=== PATIENT | male | born 1940 | race Caucasian/White ===

== ENCOUNTER 2017-05-26 12:20 | Inpatient (IN) ==
--- NOTE | 2017-05-26 12:54 | Emergency Department Report ---
Male Urogenital HPI - General Chief complaint: Urogenital-Male Stated complaint: not urinating Time Seen by Provider: 05/26/17 12:53 Source: patient, family Mode of arrival: ambulatory Limitations: no limitations - History of Present Illness HPI Narrative: Patient is a 77-year-old male presents the ER for evaluation of no urine output. Patient was seen 3 days ago in the emergency department and approximately 10 days before that. Patient's original complaint was flank pain , however says that this is a waxing and waning hallucination. Patient was evaluated for flank pain including the CT scan. CT scan was negative patient was discharged home. Patient presented to the ER 3 days ago, at that time family concern for hallucinations and altered mental status. Patient see full evaluation including laboratories and fluid bolus. Patient was improved, patient did not meet criteria for generations so patient was discharged home. Patient repeat presents the ER, says he's only had a 30 mL urine output in the last 2 days, does state that he eats somewhat, however has not been drinking much fluids over the last 72 hours. Patient's had no fevers no chills no nausea no vomiting. Patient brought to the ER for evaluation. On arrival patient is orthostatic drops blood pressure systolic 140 down to systolic of 80 on standing - Related Data Home Medications Medication Instructions Recorded Confirmed Ferrous Gluconate 324 mg PO Q2D PRN #0 09/03/15 05/26/17 Insulin Detemir [Levemir Flextouch] 6.5 unit SQ HS #0 11/23/15 05/26/17 Omeprazole 40 mg PO BID #0 11/23/15 05/26/17 Amiodarone [Pacerone] 200 mg PO DAILY 05/11/17 05/26/17 Aspirin [Ecotrin] 81 mg PO Q2D 05/11/17 05/26/17 Carvedilol [Carvedilol] 12.5 mg PO DAILY 05/11/17 05/26/17 Duloxetine HCl [Cymbalta] 120 mg PO DAILY 05/24/17 05/26/17 Hydrocodone/APAP 7.5/325 [[place] 1 tab PO Q4H PRN 05/24/17 05/26/17 7.5/325] Ondansetron Tab [Zofran Po] 4 mg PO Q6HR PRN 05/24/17 05/26/17 OLANZapine [Zyprexa] 5 mg PO HS 05/26/17 05/26/17 Allergies Allergy/AdvReac Type Severity Reaction Status Date / Time metformin Allergy Unknown Verified 05/26/17 12:35 Review of Systems Constitutional: Reports: weakness. Denies: fever, chills ENT: Denies: throat pain, dental pain Cardiovascular: Denies: chest pain, palpitations, dyspnea on exertion Respiratory: Denies: cough, dyspnea, wheezes Gastrointestinal: Denies: abdominal pain, nausea, vomiting Genitourinary: Reports: other (anuria). Denies: urgency, dysuria, genital lesions Musculoskeletal: Denies: back pain, joint swelling Neurological: Denies: headache, weakness, numbness Psychiatric: Denies: anxiety, depression Hematological/Lymphatic: Denies: easy bleeding, easy bruising PFSH Patient Stated Medical History Other HEENT Yes: glasses Myocardial Infarction Yes Diabetes Mellitus Type 2 Yes Hx Kidney Stones Yes Medical History Updates: Dementia - Social History Smoking status: Former smoker Substance use type: does not use Alcohol intake frequency: does not drink Physical Exam - Limitations Limitations: no limitations - General General appearance: alert, in no apparent distress - Head Head exam: normocephalic, normal inspection - Eye Eye exam: Present: PERRL - ENT ENT exam: Present: normal oropharynx, mucous membranes moist, TM's normal bilaterally - Chest Chest inspection: Present: symmetric chest wall rise. Absent: tenderness - Respiratory Respiratory exam: Present: normal lung sounds bilaterally. Absent: respiratory distress, wheezes, stridor - Cardiovascular Cardiovascular exam: Present: regular rate, normal rhythm, normal heart sounds - Abdominal Exam Abdominal exam: Present: soft, normal bowel sounds. Absent: distention, tenderness - exam: Present: normal inspection, normal testicular lie. Absent: testicular tenderness, urethral discharge, scrotal swelling, circumcised - Extremities Exam Extremities exam: Present: normal inspection. Absent: full ROM - Back Exam Back exam: Present: full ROM. Absent: tenderness, CVA tenderness (R), CVA tenderness (L) - Skin Skin exam: Present: warm, dry - Neurological Exam Neurological exam: Present: alert, oriented X3 Course Vital Signs Temperature 95.0 F L 05/26/17 12:35 Respiratory Rate 19 05/26/17 12:35 Blood Pressure 100/65 05/26/17 12:35 Temperature 98.0 F 05/26/17 15:02 Pulse Rate 58 L 05/26/17 16:00 Respiratory Rate 14 05/26/17 15:02 Blood Pressure 148/80 H 05/26/17 15:02 Pulse Oximetry 90 05/26/17 15:02 Urogenital-Male - [facility] Narrative Medical decision making narrative: Patient significantly orthostatic creatinine is increased to 2.4 from baseline of 1.6, discussed case with Dr. Patel, patient will need observation status she will follow up. Patient did have 386 on bladder scan, unable to urinate. Ch placed no signs of infection - Differential Diagnosis Likely: urinary tract infection, priapism, urethritis, epididymitis, genital herpes simplex, prostatitis, acute retention of urine, inguinal hernia - Medical Records Attestation: I reviewed the patient's medical records. - Lab Data Attestation: I reviewed the patient's lab results. Result diagrams: 05/26/17 13:34 05/26/17 13:34 Lab Results 05/26/17 05/26/17 05/26/17 Range/Units 13:34 13:34 13:34 WBC 7.9 (4.5-11.0) T/MM3 RBC 3.35 L (4.50-5.90) M/MM3 Hgb 11.4 L (13.5-17.5) GM/DL Hct 36.4 L (41-53) % MCV 108.7 H (80-100) UM3 MCH 34.0 (26-34) UUG MCHC 31.3 (31-37) GM/DL RDW Std Deviation 66.9 H (36.9-50.2) FL Plt Count 184 (130-400) T/MM3 MPV 12.6 H (9.4-12.4) UM3 Immature Gran % (Auto) 0.3 (0.0-0.5) % Neut % (Auto) 74.9 H (33-66) % Lymph % (Auto) 18.4 L (23-45) % [place] % (Auto) 4.0 (0-9.0) % Eos % (Auto) 1.8 (0-4) % Baso % (Auto) 0.6 (0-2) % Neut # (Auto) 5.9 (1.8-7.7) T/MM3 Lymph # (Auto) 1.5 (1-4.8) T/MM3 [place] # (Auto) 0.3 (0-0.8) T/MM3 Eos # (Auto) 0.1 (0-0.5) T/MM3 Baso # (Auto) 0.1 (0-0.2) T/MM3 Abs Immat Gran (auto) 0.02 (0.00-0.03) T/MM3 Turbidity < 20 (0-20) Sodium 148 H (134-144) MEQ/L Potassium 4.3 (3.6-5) MEQ/L Chloride 104 (98-107) MEQ/L Carbon Dioxide 31 H (22-30) MEQ/L Anion Gap 13 (5-15) MEQ/L BUN 31.0 H (9-20) MG/DL Creatinine 2.4 H D (0.8-1.5) mg/dL GFR Calculation 26 BUN/Creatinine Ratio 13 (6-26) RATIO Glucose 163 H (75-110) MG/DL Calculated Osmolality 295 H (261-280) MOSM/KG Calcium 9.9 (8.4-10.2) MG/DL Total Bilirubin 0.80 (0.20-1.30) MG/DL Icterus Index < 2 (0-7) AST 106 H (17-59) U/L ALT 46 (1-50) U/L Alkaline Phosphatase 123 (38-126) U/L Total Creatine Kinase (55-170) U/L Troponin I 0.027 (0-0.12) ng/ml Total Protein 8.2 (6.3-8.2) g/dL Albumin 4.7 (3.5-5.0) g/dL Globulin 3.5 (2.4-3.6) G/DL Albumin/Globulin Ratio 1.3 (1.1-2.2) RATIO Specimen Hemolysis < 15 (0-25) Ur Collection Type Urine, cath ch Urine Color Yellow (YELLOW) Urine Clarity Sl cloudy Urine pH 5.5 (5.0-8.0) Ur Specific [place] >=1.030 H (1.015-1.025) Urine Protein 1+ A (NEGATIVE) Urine Glucose (UA) Negative (NEGATIVE) Urine Ketones Negative (NEGATIVE) Urine Occult Blood 1+ A (NEGATIVE) Urine Nitrate Negative (NEGATIVE) Urine Bilirubin Negative (NEGATIVE) Urine Urobilinogen 0.2 (NORMAL) EU/DL Ur Leukocyte Esterase Negative (NEGATIVE) Urine RBC 1-3 (0-3) /HPF Urine WBC None seen (0-5) /HPF Urine Bacteria Trace H (NEGATIVE) Ur Culture Indicated? Cult not indicated 05/26/17 Range/Units 13:34 WBC (4.5-11.0) T/MM3 RBC (4.50-5.90) M/MM3 Hgb (13.5-17.5) GM/DL Hct (41-53) % MCV (80-100) UM3 MCH (26-34) UUG MCHC (31-37) GM/DL RDW Std Deviation (36.9-50.2) FL Plt Count (130-400) T/MM3 MPV (9.4-12.4) UM3 Immature Gran % (Auto) (0.0-0.5) % Neut % (Auto) (33-66) % Lymph % (Auto) (23-45) % [place] % (Auto) (0-9.0) % Eos % (Auto) (0-4) % Baso % (Auto) (0-2) % Neut # (Auto) (1.8-7.7) T/MM3 Lymph # (Auto) (1-4.8) T/MM3 [place] # (Auto) (0-0.8) T/MM3 Eos # (Auto) (0-0.5) T/MM3 Baso # (Auto) (0-0.2) T/MM3 Abs Immat Gran (auto) (0.00-0.03) T/MM3 Turbidity (0-20) Sodium (134-144) MEQ/L Potassium (3.6-5) MEQ/L Chloride (98-107) MEQ/L Carbon Dioxide (22-30) MEQ/L Anion Gap (5-15) MEQ/L BUN (9-20) MG/DL Creatinine (0.8-1.5) mg/dL GFR Calculation BUN/Creatinine Ratio (6-26) RATIO Glucose (75-110) MG/DL Calculated Osmolality (261-280) MOSM/KG Calcium (8.4-10.2) MG/DL Total Bilirubin (0.20-1.30) MG/DL Icterus Index (0-7) AST (17-59) U/L ALT (1-50) U/L Alkaline Phosphatase (38-126) U/L Total Creatine Kinase 319 H (55-170) U/L Troponin I (0-0.12) ng/ml Total Protein (6.3-8.2) g/dL Albumin (3.5-5.0) g/dL Globulin (2.4-3.6) G/DL Albumin/Globulin Ratio (1.1-2.2) RATIO Specimen Hemolysis (0-25) Ur Collection Type Urine Color (YELLOW) Urine Clarity Urine pH (5.0-8.0) Ur Specific [place] (1.015-1.025) Urine Protein (NEGATIVE) Urine Glucose (UA) (NEGATIVE) Urine Ketones (NEGATIVE) Urine Occult Blood (NEGATIVE) Urine Nitrate (NEGATIVE) Urine Bilirubin (NEGATIVE) Urine Urobilinogen (NORMAL) EU/DL Ur Leukocyte Esterase (NEGATIVE) Urine RBC (0-3) /HPF Urine WBC (0-5) /HPF Urine Bacteria (NEGATIVE) Ur Culture Indicated? Disposition Clinical Impression: Acute kidney injury, Orthostatic hypotension Disposition: 02 To [facility] Condition: Improved Time of Disposition: 17:45 - Seen By: physician
[2017-05-26] MEDS ORDERED: NS 1,000 ML IV ONE (12:57)
--- OUTSIDE RECORDS SUMMARY | 2017-05-26 13:27 | External Medical Summary | Continuity of Care Document ---
:1940 Author Organization [facility] Allergies Active Description Code Type Severity Reaction Onset Reported/ Identified Relationship Clinical to Patient Status Yes No Known NKMA N/A N/A 07/19/2013 Medication Allergies Yes No Known NKMA N/A N/A 07/19/2013 Medication Allergies Yes No Known No Aller Unknown N/A 06/30/2014 Drug Known gy Allergies Drug Aller gies Yes Biguanides metfo Aller Unknown N/A 11/23/2015 rmin gy Yes metformin Aller Unknown N/A 05/24/2017 gy Medications Medication Packaging Start Stop Route Dosage Sig Date Date 1 caps Oral 60 mg 1 DULoxetine(Cymba 4 014 caps, Oral, lta 60 mg oral Daily, do not delayed release crush or chew, capsule) 30 caps Oral 25 mg 25 hydrochlorothiaz 4 014 mg, Oral, Daily quiana(hydrochlorot hiazide) Oral 20 mg 20 folic acid(folic 4 015 mg, Oral, Daily acid) 1 tabs Oral 1 HYDROcodone-acet 4 014 tabs, Oral, aminophen([place] q6hr 5 mg-325 mg oral tablet) Oral 40 mg 40 omeprazole(omepr 4 014 mg, Oral, Daily azole) Oral 300 mg 300 allopurinol(allo 4 014 mg, Oral, purinol) Daily, Take 0.5 tablet Oral 50 sitaGLIPtin-metF 4 014 mg-500mg, Oral, ORMIN(Janumet) Daily Oral 30 mg 30 temazepam(temaze 4 014 mg, Oral, mac) Bedtime (once a day) 1 caps Oral 100 mg 1 gabapentin(gabap 4 014 caps, Oral, entin 100 mg TID, 30 caps oral capsule) See gabapentin(gabap 4 014 Instructions, 1 entin 100 mg CAPS ORAL TID, oral capsule) 30 caps See gabapentin(gabap 4 014 Instructions, 1 entin 100 mg CAPS ORAL TID, oral capsule) 30 caps 1 caps Oral 300 mg 1 gabapentin(gabap 4 014 caps, Oral, entin 300 mg BID, 180 caps oral capsule) 1 tabs Oral 1 HYDROcodone-acet 4 014 tabs, Oral, aminophen([place] q6hr, 5 mg-325 mg oral [facility], 60 tablet) tabs, PRN: as needed for pain 1 caps Oral 30 mg 1 temazepam(temaze 4 016 caps, Oral, mac 30 mg oral Bedtime (once a capsule) day), Fax to ari sherman, 30 caps 1 tabs Oral 25 mg 1 promethazine(pro 4 014 tabs, Oral, methazine 25 mg Bedtime (once a oral tablet) day), 30 tabs 1 tabs Oral 25 mg 1 meclizine(mecliz 4 014 tabs, Oral, ine 25 mg oral TID, 30 tabs, tablet) PRN: as needed for dizziness IntraMuscular 25 mg 25 promethazine(pro 4 014 mg, methazine) IntraMuscular, Once 1 tabs Oral 1 HYDROcodone-acet 4 014 tabs, Oral, aminophen([place] q6hr, 5 mg-325 mg oral [facility], 60 tablet) tabs, PRN: as needed for pain See omeprazole(omepr 4 014 Instructions, azole 40 mg oral TAKE 1 CAPSULE delayed release BY MOUTH EVERY capsule) DAY., 60 tabs 1 tabs Oral 1 HYDROcodone-acet 4 014 tabs, Oral, aminophen([place] q6hr, 5 mg-325 mg oral [facility]-May tablet) fill 11-18-14, 60 tabs, PRN: as needed for pain ORAL ORAL 30 DULOXETINE HCL 4 015 daily See omeprazole(omepr 4 015 Instructions, azole 40 mg oral TAKE 1 CAPSULE delayed release BY MOUTH EVERY capsule) DAY., 60 tabs Oral 90 mg 90 DULoxetine(Cymba 4 mg, Oral, lta) Daily, 0 Refill(s) Oral 2 mg 2 ARIPiprazole(Mar 4 015 mg, Oral, lify) Daily, 0 Refill(s) Oral 10 mg 10 donepezil(Aricep 4 016 mg, Oral, t) Bedtime (once a day), 0 Refill(s) 1 tabs Oral 1 HYDROcodone-acet 4 014 tabs, Oral, aminophen([place] Bedtime (once a 5 mg-325 mg oral day), tablet) [facility]-rx must last 30 days, 30 tabs, PRN: as needed for pain 1 tabs Oral 1 HYDROcodone-acet 4 015 tabs, Oral, aminophen([place] Bedtime (once a 7.5 mg-325 mg day), 30 tabs oral tablet) 1 caps Oral 0.4 mg 1 tamsulosin(Floma 4 015 caps, Oral, x 0.4 mg oral Daily, 30 caps capsule) 1 tabs Oral 500 mg 1 ciprofloxacin(Ci 4 015 tabs, Oral, pro 500 mg oral q12hr, 20 tabs tablet) IntraMuscular 50 mg 50 promethazine(pro 4 014 mg, methazine) IntraMuscular, Once IntraMuscular 50 mg 50 meperidine(meper 4 014 mg, idine) IntraMuscular, Once See omeprazole(omepr 5 015 Instructions, azole 40 mg oral TAKE 1 CAPSULE delayed release BY MOUTH EVERY capsule) DAY., 60 tabs See omeprazole(omepr 5 015 Instructions, azole 40 mg oral TAKE 1 CAPSULE delayed release BY MOUTH EVERY capsule) DAY., 60 tabs ORAL ORAL 60 DULOXETINE HCL 5 daily MG 324 Ferrous 5 DAILY Gluconate TAB 1 Hydrocodone/Acet 5 DAILY aminophen MG 81 Aspirin 5 DAILY MG 200 Amiodarone HCl 5 DAILY MG 60 Duloxetine HCl 5 DAILY MG 30 Duloxetine HCl 5 DAILY MG 3.125 Carvedilol 5 DAILY UNIT 15 HS Insulin 5 Glargine,Hum.rec .anlog MG 40 BID Furosemide 5 SPRAY 1 Fluticasone 5 DAILY Propionate 1 caps Oral 20 mg 20 omeprazole(omepr 5 015 mg=1 caps, azole 20 mg oral Oral, Daily, 30 delayed release caps, 0 capsule) Refill(s) 1 tabs Oral 500 mg 500 metFORMIN(metFOR 5 015 mg=1 tabs, MIN 500 mg oral Oral, BID, 60 tablet) tabs, 4 Refill(s) See insulin 5 015 Instructions, glargine(Lantus 15 units Solostar Pen 100 SubCutaneous units/mL Daily, 3 mL, 0 subcutaneous Refill(s) solution) See omeprazole(omepr 5 016 Instructions, azole 40 mg oral TAKE 1 CAPSULE delayed release BY MOUTH EVERY capsule) DAY., 60 tabs, 5 Refill(s) 1 tabs Oral 1 HYDROcodone-acet 5 015 tabs, Oral, aminophen([place] Bedtime (once a 7.5 mg-325 mg day), MUST LAST oral tablet) 30 DAYS, 30 tabs, 0 Refill(s) Oral 325 mg 325 ferrous 5 mg, Oral, sulfate(ferrous Daily, 0 sulfate) Refill(s) 1 tabs Oral 1 multivitamin(mul 5 tabs, Oral, tivitamin) Daily, 0 Refill(s) 4 mL IV Push 20 mg 20 diltiazem(Cardiz 6 016 mg=4 mL, IV em) Push, Once 2 tabs Oral 1,000 mg acetaminophen(ac 6 016 1,000 mg=2 etaminophen) tabs, Oral, Once, PRN: Headache 4 tabs Oral 324 mg 324 aspirin(aspirin) 6 016 mg=4 tabs, Oral, Once 1 tabs Oral 81 mg 81 aspirin(aspirin) 6 016 mg=1 tabs, Oral, Daily 3 caps Oral 90 mg 90 DULoxetine(Cymba 6 016 mg=3 caps, lta) Oral, Daily 1 tabs Oral 325 mg 325 ferrous 6 016 mg=1 tabs, sulfate(ferrous Oral, Daily sulfate) 0.15 mL SubCutaneous 15 units 15 insulin 6 016 units=0.15 mL, detemir(Levemir) SubCutaneous, Bedtime (once a day) 1 tabs Oral 40 mg 40 pantoprazole(Pro 6 016 mg=1 tabs, tonix) Oral, Daily 0.5 mL IntraMuscular 0.5 pneumococcal 6 016 mL, 23-polyvalent IntraMuscular, vaccine(pneumoco As Indicated ccal 23-polyvalent vaccine) 2 mL IV Push 20 mg 20 furosemide(furos 6 016 mg=2 mL, IV emide 10 mg/mL Push, BID oral liquid) 3 mL IV Piggyback 150 mg 150 amiodarone(amiod 6 016 mg=3 mL, 618 arone) mL/hr, IV Piggyback, Once 1 tabs Oral 3.125 mg carvedilol(Coreg 6 016 6.25 mg=1 tabs, ) Oral, BIDWM 1 sprays Oral 1 benzocaine-tetra 6 016 sprays, Oral, arelis q3min, PRN: topical(Cetacain Other (See e mucous Comment) membrane aerosol) 1 tabs Oral 200 mg 200 amiodarone(amiod 6 016 mg=1 tabs, arone) Oral, Daily 1 tabs Oral 20 mg 20 furosemide(Lasix 6 016 mg=1 tabs, ) Oral, BID 1 tabs Oral 5 mg 5 warfarin(warfari 6 016 mg=1 tabs, n) Oral, Once 1 tabs Oral 5 mg 5 warfarin(warfari 6 016 mg=1 tabs, n) Oral, Once 0.94 mL IV Push 4,700 heparin(Heparin 6 016 units 4,700 Bolus) units=0.94 mL, IV Push, q6hr, PRN: Other (See Comment) 1 tabs Oral 5 mg 5 warfarin(warfari 6 016 mg=1 tabs, n) Oral, Daily 1 tabs Oral 7.5 mg 7.5 warfarin(warfari 6 016 mg=1 tabs, n) Oral, Once 1 tabs Oral 3 mg 3 warfarin(warfari 6 016 mg=1 tabs, n 3 mg oral Oral, Once, 0 tablet) Refill(s) 1 tabs Oral 200 mg 200 amiodarone(amiod 6 mg=1 tabs, arone 200 mg Oral, Daily, 0 oral tablet) Refill(s) 1 tabs Oral 3.125 mg carvedilol(Coreg 6 016 3.125 mg=1 3.125 mg oral tabs, Oral, tablet) BIDWM, 0 Refill(s) 2 tabs Oral 40 mg 40 furosemide(Lasix 6 016 mg=2 tabs, 20 mg oral Oral, BID, 0 tablet) Refill(s) 2 tabs Oral 12.5 mg carvedilol(Coreg 6 12.5 mg=2 tabs, 6.25 mg oral Oral, Daily, 0 tablet) Refill(s) 1 tabs Oral 2.5 mg 2.5 lisinopril(lisin 6 016 mg=1 tabs, opril 2.5 mg Oral, Daily, 30 oral tablet) tabs, 0 Refill(s) SubCutaneous 10 units 10 insulin isophane 6 016 units, (NPH)(NovoLIN N SubCutaneous, 100 units/mL BID, 10 mL, 0 subcutaneous Refill(s) suspension) 1 tabs Oral 180 mg 180 fexofenadine(fex 6 016 mg=1 tabs, ofenadine 180 mg Oral, Daily, 30 oral tablet) tabs, 5 Refill(s) 2 sprays Nasal 2 fluticasone 6 sprays, Nasal, nasal(Flonase 50 BID, 16 g, 5 mcg/inh nasal Refill(s) spray) 1 tabs Oral 1 HYDROcodone-acet 6 tabs, Oral, aminophen([place] Bedtime (once a 5 mg-325 mg oral day), tablet) [facility]-rx must last 30 days, PRN: as needed for pain, 30 tabs, 0 Refill(s) See omeprazole(omepr 6 016 Instructions, azole 40 mg oral TAKE 1 CAPSULE delayed release BY MOUTH EVERY capsule) DAY, 60 caps PO 324 mg Q2D Ferrous 6 Gluconate PO 30 mg Duloxetine HCl 6 DAILY EA NOSTRIL 120 Flonase 6 spray/16 DAILY g MG 324 Ferrous 6 DAILY Gluconate TAB 1 Hydrocodone/Acet 6 DAILY aminophen MG 81 Aspirin 6 DAILY MG 200 Amiodarone HCl 6 DAILY MG 60 Duloxetine HCl 6 DAILY MG 30 Duloxetine HCl 6 DAILY MG 3.125 Carvedilol 6 DAILY UNIT 15 HS Insulin 6 Glargine,Hum.rec .anlog MG 40 BID Furosemide 6 SPRAY 1 Fluticasone 6 DAILY Propionate 1 tabs Oral 2.5 mg 2.5 lisinopril(lisin 6 016 mg=1 tabs, opril 2.5 mg Oral, Daily, 30 oral tablet) tabs, 0 Refill(s) See omeprazole(omepr 6 016 Instructions, azole 40 mg oral TAKE 1 CAPSULE delayed release BY MOUTH EVERY capsule) DAY, 90 caps, 1 Refill(s) 1 tabs Oral 1 HYDROcodone-acet 6 016 tabs, Oral, aminophen([place] q4hr, PRN: as 7.5 mg-325 mg needed for oral tablet) pain, 60 tabs, 0 Refill(s) PO 40 mg BID Omeprazole 6 SQ 100 HS Levemir 6 unit/ml Flextouch SQ 100 Novolog Flexpen 6 unit/ml TIDWM PO 3.125 mg Carvedilol 6 BIDWM See furosemide(furos 7 Instructions, emide 20 mg oral TAKE 2 TABLETS tablet) BY MOUTH TWICE DAILY, 120 tabs, 0 Refill(s) 1 tabs Oral 1 HYDROcodone-acet 7 tabs, Oral, aminophen([place] q4hr, june 7.5 mg-325 mg refill oral tablet) 09/15/2016, PRN: as needed for pain, 60 tabs, 0 Refill(s) PO 5 ml Mycostatin 8 Q6HR PO 4 mg Zofran Po 8 Q6HR PO 10 mg Q6H Compazine 8 PO 81 mg Q2D Ecotrin 8 PO 200 mg Pacerone 8 DAILY PO 12.5 mg Carvedilol 8 DAILY PO 4 mg Zofran Po 8 Q6HR PO 1 tab Q4H [place] 7.5/325 8 PO 60 mg Cymbalta 8 DAILY Problems Date Dx Attending Type Code Diagnosis Diagnosed By Coded 03/06/2015 Admitting I48.91 03/28/2015 Final E11.9 Type 2 diabetes mellitus without complications 03/28/2015 Final G47.30 Sleep apnea, unspecified 03/28/2015 Final 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 03/28/2015 Final 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 03/28/2015 Final I42.9 Cardiomyopathy, unspecified 03/28/2015 Final I45.10 Unspecified right bundle-branch block 03/28/2015 Final I50.23 Acute on chronic systolic (congestive) heart failure 03/28/2015 Final N17.9 Acute kidney failure, unspecified 03/28/2015 Final N18.9 Chronic kidney disease, unspecified 03/28/2015 Admitting R00.2 Palpitations 03/28/2015 Final Z23 Encounter for immunization 03/28/2015 Final Z95.1 Presence of aortocoronary bypass graft 03/28/2015 Final I48.91 Unspecified atrial fibrillation 03/06/2016 Mark, Final D64.9 Anemia, unspecified [facility] 03/06/2016 Mark, Final E11.9 Type 2 diabetes [facility] mellitus without complications 03/06/2016 Mark, Final I50.9 Heart failure, [facility] unspecified 03/06/2016 Mark, Final R06.02 Shortness of breath [facility] 03/06/2016 Mark, Final R21 Rash and other [facility] nonspecific skin eruption 03/06/2016 Mark, Final R53.83 Other fatigue [facility] 03/06/2016 Mark, Final T82.03XA Leakage of heart [facility] valve prosthesis, initial encounter 09/11/2016 Pato, Final E11.9 Type 2 diabetes Edgar W mellitus without complications 09/11/2016 Pato, Final E78.5 Hyperlipidemia, Edgar W unspecified 09/11/2016 Pato, Final F03.90 Unspecified dementia Edgar W without behavioral disturbance 09/11/2016 Pato, Final F32.9 Major depressive Edgar W disorder, single episode, unspecified 09/11/2016 Pato, Final H61.20 Impacted cerumen, Edgar W unspecified ear 09/11/2016 Pato, Final I10 Essential (primary) Edgar W hypertension 09/11/2016 Luinstra, Final I50.9 Heart failure, Edgar Michelle unspecified 09/11/2016 Luinstra, Final K21.9 Gastro-esophageal Edgar Michelle reflux disease without esophagitis 09/11/2016 Luinstra, Final L85.3 Xerosis cutis Edgar Michelle 09/11/2016 Luinstra, Final M1A.9XX0 Chronic gout, Edgar Michelle unspecified, without tophus (tophi) 09/11/2016 Luinstra, Final M48.06 Spinal stenosis, Edgar Michelle lumbar region 09/11/2016 Luinstra, Final N18.1 Chronic kidney Edgar Michelle disease, stage 1 09/11/2016 Luinstra, Final 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 09/18/2016 Yammine, Final 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 09/18/2016 Yammine, Final J94.9 Pleural condition, Walter Salim unspecified 09/18/2016 Yammine, Final R06.09 Other forms of Walter Salim dyspnea 09/18/2016 Yammine, Final Z79.899 Other alf Walter Salim (current) drug therapy 09/18/2016 Yammine, Final 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 09/18/2016 Yammine, Final R06.02 Shortness of breath Walter Salim 05/11/2017 MONAE BAER, N20.0 Calculus of kidney DUNG E 05/11/2017 MONAE BAER, Z87.442 Personal history of DUNG E urinary calculi 05/24/2017June DO, ODETTE Fonseca E03.9 Hypothyroidism, unspecified 05/24/2017June DO, ODETTE Fonseca F03.91 Unspecified dementia with behavioral disturbance 05/24/2017June DO, ODETTE Fonseca K75.9 Inflammatory liver disease, unspecified 05/24/2017June DO, ODETTE Fonseca Z79.4 prison (current) use of insulin 05/24/2017June DO, ODETTE Fonseca Z79.82 exterminator termite (current) use of aspirin 05/24/2017June DO, ODETTE Fonseca Z79.899 Other intermediate designer (current) drug therapy Procedures Code Description [place] [id number] Office or 09/20/2015 other outpatient visit for the evaluation and management of an established patient, which requires at least 2 of these 3 guevara components: A detailed history; A detailed examination; Medical d [id number] Office or 10/26/2015 other outpatient visit for the evaluation and management of an established patient, which requires at least 2 of these 3 guevara components: A detailed history; A detailed examination; Medical d [id number] Office or 03/06/2016 other outpatient visit for the evaluation and management of an established patient, which requires at least 2 of these 3 guevara components: A comprehensive history; A comprehensive examination; [id number] Office or 03/14/2016 other outpatient visit for the evaluation and management of an established patient, which requires at least 2 of these 3 guevara components: An expanded problem focused history; An expanded prob [id number] Removal 09/11/2016 Impacted Cerumen Irrigation/LVG Unilat [id number] Office or 09/11/2016 other outpatient visit for the evaluation and management of an established patient, which requires at least 2 of these 3 guevara components: A detailed history; A detailed examination; Medical d [id number] Spirometry, 09/18/2016 including graphic record, total and timed vital capacity, expiratory flow rate measurement(s), with or without maximal voluntary ventilation.. [id number] Office or 09/18/2016 other outpatient visit for the evaluation and management of a new patient, which requires these 3 guevara components: A comprehensive history; A comprehensive examination; Medical decision makin Results Test Result Range L200.0020 - 09/03/15 11:00 ICTERUS < 2 0-7 HEMOLYSIS < 15 0-25 L200.2000 - 09/03/15 11:00 MAGNESIUM 2.5 MG/DL 1.6-2.3 L100.0060 - 09/03/15 11:00 WBC - WHITE BLOOD COUNT 14.8 T/MM3 4.5-11.0 RED BLOOD COUNT 1.72 M/MM3 4.50-5.90 HGB - HEMOGLOBIN 4.8 GM/DL 13.5-17.5 HCT - HEMATOCRIT 17.2 % 41-53 MEAN CORPUSCULAR VOLUME 100.0 UM3 80-100 MEAN CORPUSCULAR HGB 27.9 UUG 26-34 MEAN CORPUSCULAR HGB CONC(MCHC 27.9 GM/DL 31-37 RDW STANDARD DEVIATION 86.2 FL 36.9-50.2 PLT - PLATELET COUNT 386 T/MM3 130-400 MEAN PLATELET VOLUME 11.8 UM3 9.4-12.4 L200.1848 - 09/03/15 11:00 TROPONIN I 0.040 ng/ml 0-0.12 L200.1880 - 09/03/15 11:00 PROBNP 2100 PG/ML 0-175 L160.0105 - 09/03/15 11:00 INR 8.09 0.99-1.21 L160.0135 - 09/03/15 11:00 D-DIMER 215 NG/ML 0-230 L100.0060 - 09/03/15 11:00 WBC - WHITE BLOOD COUNT 14.8 T/MM3 4.5-11.0 RED BLOOD COUNT 1.72 M/MM3 4.50-5.90 HGB - HEMOGLOBIN 4.8 GM/DL 13.5-17.5 HCT - HEMATOCRIT 17.2 % 41-53 MEAN CORPUSCULAR VOLUME 100.0 UM3 80-100 MEAN CORPUSCULAR HGB 27.9 UUG 26-34 MEAN CORPUSCULAR HGB CONC(MCHC 27.9 GM/DL 31-37 RDW STANDARD DEVIATION 86.2 FL 36.9-50.2 PLT - PLATELET COUNT 386 T/MM3 130-400 MEAN PLATELET VOLUME 11.8 UM3 9.4-12.4 NEUTROPHILS % (MANUAL) 70.0 % 33-66 LYMPHOCYTES % (MANUAL) 28.0 % 23-45 MONOCYTES % (MANUAL) 2.0 % 0-9.0 NEUTROPHILS # (MANUAL) 10.4 T/MM3 1.8-7.7 LYMPHOCYTES # (MANUAL) 4.1 T/MM3 1-4.8 MONOCYTES # (MANUAL) 0.3 T/MM3 0-0.8 NUCLEATED RED BLOOD CELLS 3 RBC MORPHOLOGY ABNORMAL ANISOCYTOSIS 2+ POIKILOCYTOSIS 2+ SCHISTOCYTES 1+ L100.6175 - 09/03/15 11:11 ABSOLUTE RETICS # 0.2413 T/MM3 0.0300-0.0900 RETICULOCYTE % 13.8 % 0.6-1.7 IMMATURE RETICULOCYTE FRACTION 49.6 % 3.3-14.5 RETICULOCYTE HGB 26.1 PG 30.8-36.6 L200.6775 - 09/03/15 11:11 HEMOGLOBIN A1C 7.3 % 6.1-7.9 L200.2100 - 09/03/15 11:11 IRON 56 UG/DL 49-181 TOTAL IRON BINDING CAPACITY 478 UG/DL 261-497 IRON % SAT (TRANSF %SAT)(CALC) 12 % 13-59 B100.0700 - 09/03/15 11:56 BLOOD TYPE O POSITIVE ANTIBODY SCREEN POSITIVE BLASTTXDATE 07570 B411.0000 - 09/03/15 11:56 OXYGEN SAT, ABG POSITIVE AB ID A INTREPRETATION REFERED TO ARC U500.0101 - 09/03/15 11:56 U500.0101 TRANSFUSED PRODUCT: PACKED CELLS LEUKOREDUCED 1ST COUNT: 4 L450.1345 - 09/03/15 12:25 CREATININE, URINE RANDOM 72.8 MG/DL L450.2030 - 09/03/15 12:25 SODIUM, UR RANDOM 12 MEQ/L 30-90 L600.0100 - 09/03/15 12:55 SPECIMEN TYPE, URINE VOIDED-NOT CC-MIDSTR COLOR,URINE YELLOW YELLOW TURBIDITY, URINE CLEAR CLEAR SPECIFIC GRAVITY,URINE 1.020 1.015-1.025 PH, URINE - DIPSTICK 5.0 5.0-8.0 LEUKOCYTE ESTERASE ,URINE NEGATIVE NEGATIVE NITRITE,URINE NEGATIVE NEGATIVE PROTEIN,URINE - DIPSTICK NEGATIVE NEGATIVE GLUCOSE, URINE - DIPSTICK 3+ NEGATIVE KETONES,URINE - DIPSTICK NEGATIVE NEGATIVE UROBILINOGEN,URINE 0.2 EU/DL NORMAL BILIRUBIN,URINE - DIPSTICK NEGATIVE NEGATIVE BLOOD, URINE NEGATIVE NEGATIVE URINE MICRO MICROSCOPIC NOT IND. L450.3000 - 09/03/15 16:46 AMPHETAMINE SCREEN,URINE NEGATIVE NG/ML BARBITURATE SCREEN,URINE NEGATIVE NG/ML BENZODIAZEPINES SCREEN,URINE NEGATIVE NG/ML COCAINE SCREEN,URINE NEGATIVE NG/ML OPIATE SCREEN,URINE NEGATIVE NG/ML PHENCYCLIDINE SCREEN,URINE NEGATIVE NG/ML CANNABINOID SCREEN,URINE NEGATIVE NG/ML TRICYCLIC ANTIDEPRESSANT,URINE NEGATIVE NG/ML L200.1848 - 09/03/15 16:49 HEMOLYSIS < 15 0-25 L900.0530 - 09/03/15 20:01 GLUCOMETER 306 mg/dL 75-110 B600.798 - 09/03/15 23:19 BGIVEPC1 1 UNIT PC ISSUED L100.0299 - 09/03/15 23:19 HGB - HEMOGLOBIN 5.5 GM/DL 13.5-17.5 L200.184709/03/15 23:19 HEMOLYSIS < 15 0-25 L900.0509/03/15 23:56 GLUCOMETER 261 mg/dL 75-110 B600.7909/04/15 17:38 BGIVEPC1 1 UNIT PC ISSUED L100.006 - 09/04/15 04:24 WBC - WHITE BLOOD COUNT 14.1 T/MM3 4.5-11.0 RED BLOOD COUNT 2.41 M/MM3 4.50-5.90 HGB - HEMOGLOBIN 6.7 GM/DL 13.5-17.5 L200.005 - 09/04/15 04:24 ICTERUS < 2 0-7 HEMOLYSIS < 15 0-25 L160.0105 - 09/04/15 04:24 INR 4.13 0.99-1.21 L160.011 - 09/04/15 04:24 PTT 41.9 SEC 24-36 L200.184709/04/15 04:24 HEMOLYSIS < 15 0-25 L200.1350 - 09/04/15 04:24 CHOLESTEROL 156 MG/DL 132-199 TRIGLYCERIDES 322 MG/DL 40-160 HDL CHOLESTEROL, DIRECT 24 MG/DL 40-60 LDL CHOLESTEROL,CALCULATED 67.6 66-159 VLDL CHOLESTEROL 64.4 MG/DL 0-28 RISK FACTOR 6.5 RATIO 0-5.0 L200.236 - 09/04/15 04:24 VITAMIN B12 467 PG/ML 239-931 L900.52909/04/15 04:54 GLUCOMETER 265 mg/dL 75-110 L900.52909/04/15 08:34 GLUCOMETER 224 mg/dL 75-110 L200.184709/04/15 10:22 HEMOLYSIS < 15 0-25 L200.3850 09/04/15 10:22 THYROID STIM HORMONE-TSH 4.45 MIU/L 0.47-4.68 L900.52909/04/15 12:13 GLUCOMETER 241 mg/dL 75-110 L100.0299 - 09/04/15 17:15 HGB - HEMOGLOBIN 7.8 GM/DL 13.5-17.5 L900.52909/04/15 18:36 GLUCOMETER 247 mg/dL 75-110 00.529 - 09/04/15 20:11 GLUCOMETER 261 mg/dL 75-110 L100.298 - 09/04/15 23:14 HGB - HEMOGLOBIN 9.2 GM/DL 13.5-17.5 L200.8 - 09/05/15 00:00 HEMOLYSIS < 15 0-25 L100.4909/05/15 04:34 WBC - WHITE BLOOD COUNT 11.7 T/MM3 4.5-11.0 RED BLOOD COUNT 3.20 M/MM3 4.50-5.90 HGB - HEMOGLOBIN 9.0 GM/DL 13.5-17.5 HCT - HEMATOCRIT 29.1 % 41-53 L100.5909/05/15 04:34 WBC - WHITE BLOOD COUNT 11.7 T/MM3 4.5-11.0 RED BLOOD COUNT 3.20 M/MM3 4.50-5.90 HGB - HEMOGLOBIN 9.0 GM/DL 13.5-17.5 HCT - HEMATOCRIT 29.1 % 41-53 L160.010 - 09/05/15 04:34 INR 1.85 0.99-1.21 L160.01109/05/15 04:34 PTT 31.9 SEC 24-36 L200.4909/05/15 04:34 ICTERUS < 2 0-7 HEMOLYSIS < 15 0-25 L900.529 - 09/05/15 05:51 GLUCOMETER 176 mg/dL 75-110 L900.52909/05/15 10:03 GLUCOMETER 292 mg/dL 75-110 L900.52909/05/15 14:17 GLUCOMETER 243 mg/dL 75-110 L100.28909/05/15 15:58 HGB - HEMOGLOBIN 9.1 GM/DL 13.5-17.5 HCT - HEMATOCRIT 29.5 % 41-53 L900.52909/05/15 19:56 GLUCOMETER 207 mg/dL 75-110 L100.0060 - 09/06/15 04:34 WBC - WHITE BLOOD COUNT 10.7 T/MM3 4.5-11.0 RED BLOOD COUNT 3.32 M/MM3 4.50-5.90 HGB - HEMOGLOBIN 9.3 GM/DL 13.5-17.5 HCT - HEMATOCRIT 30.8 % 41-53 MEAN CORPUSCULAR VOLUME 92.8 UM3 80-100 MEAN CORPUSCULAR HGB 28.0 UUG 26-34 MEAN CORPUSCULAR HGB CONC(MCHC 30.2 GM/DL 31-37 RDW STANDARD DEVIATION 67.4 FL 36.9-50.2 PLT - PLATELET COUNT 307 T/MM3 130-400 MEAN PLATELET VOLUME 11.6 UM3 9.4-12.4 L200.0050 - 09/06/15 04:34 ICTERUS < 2 0-7 HEMOLYSIS 32 0-25 L100.0060 - 09/06/15 04:34 WBC - WHITE BLOOD COUNT 10.7 T/MM3 4.5-11.0 RED BLOOD COUNT 3.32 M/MM3 4.50-5.90 HGB - HEMOGLOBIN 9.3 GM/DL 13.5-17.5 HCT - HEMATOCRIT 30.8 % 41-53 MEAN CORPUSCULAR VOLUME 92.8 UM3 80-100 MEAN CORPUSCULAR HGB 28.0 UUG 26-34 MEAN CORPUSCULAR HGB CONC(MCHC 30.2 GM/DL 31-37 RDW STANDARD DEVIATION 67.4 FL 36.9-50.2 PLT - PLATELET COUNT 307 T/MM3 130-400 MEAN PLATELET VOLUME 11.6 UM3 9.4-12.4 NEUTROPHILS % (MANUAL) 72.0 % 33-66 LYMPHOCYTES % (MANUAL) 23.0 % 23-45 MONOCYTES % (MANUAL) 5.0 % 0-9.0 NEUTROPHILS # (MANUAL) 7.7 T/MM3 1.8-7.7 LYMPHOCYTES # (MANUAL) 2.5 T/MM3 1-4.8 MONOCYTES # (MANUAL) 0.5 T/MM3 0-0.8 NUCLEATED RED BLOOD CELLS 2 RBC MORPHOLOGY ABNORMAL ANISOCYTOSIS 1+ POIKILOCYTOSIS 1+ L160.0105 - 09/06/15 04:35 INR 1.49 0.99-1.21 L160.0110 - 09/06/15 04:35 PTT 28.5 SEC 24-36 Hemoglobin A1C - 09/20/15 14:40 Hemoglobin A1C 7.0 % 4.1-5.6 Estimated Average Glucose - 09/20/15 14:40 Estimated Average Glucose 154.2 mg/dL L100.0050 - 11/23/15 20:04 WBC - WHITE BLOOD COUNT 8.7 T/MM3 4.5-11.0 RED BLOOD COUNT 2.86 M/MM3 4.50-5.90 HGB - HEMOGLOBIN 7.8 GM/DL 13.5-17.5 HCT - HEMATOCRIT 26.9 % 41-53 MEAN CORPUSCULAR VOLUME 94.1 UM3 80-100 MEAN CORPUSCULAR HGB 27.3 UUG 26-34 MEAN CORPUSCULAR HGB CONC(MCHC 29.0 GM/DL 31-37 RDW STANDARD DEVIATION 57.1 FL 36.9-50.2 PLT - PLATELET COUNT 456 T/MM3 130-400 MEAN PLATELET VOLUME 10.6 UM3 9.4-12.4 L100.0105 - 11/23/15 20:04 NEUTROPHILS % (MANUAL) 51.0 % 33-66 LYMPHOCYTES % (MANUAL) 36.0 % 23-45 MONOCYTES % (MANUAL) 9.0 % 0-9.0 EOSINOPHILS % (MANUAL) 4.0 % 0-4 NEUTROPHILS # (MANUAL) 4.4 T/MM3 1.8-7.7 LYMPHOCYTES # (MANUAL) 3.1 T/MM3 1-4.8 MONOCYTES # (MANUAL) 0.8 T/MM3 0-0.8 EOSINOPHILS # (MANUAL) 0.3 T/MM3 0-0.5 NUCLEATED RED BLOOD CELLS 2 RBC MORPHOLOGY ABNORMAL ANISOCYTOSIS 2+ POIKILOCYTOSIS 2+ KAYLA CELLS 1+ TARGET CELLS 1+ SCHISTOCYTES 2+ L160.0105 - 11/23/15 20:04 INR 1.05 0.99-1.21 B600.798 - 03/06/16 15:21 [email or web address] 1 UNIT PC ISSUED i-STAT Metabolic Panel WB - 03/06/16 16:35 CBC With Platelet and Differential - 03/06/16 16:35 Absolute Basophils 0.07 10*3/uL 0.00-0.30 Absolute Eosinophils 0.07 10*3/uL 0.00-0.60 Absolute Lymphocytes 1.73 10*3/uL 1.00-4.00 Absolute Monocytes 0.50 10*3/uL 0.20-0.80 Absolute Neutrophils 4.82 10*3/uL 2.50-7.00 Bands 1 % 0-6 Hominy Cell Occasional NA Giant Platelets Occasional NA HCT 26.8 % 40.0-54.0 HGB 7.7 g/dL 12.0-16.0 Hypochromia Moderate NA Lymphocytes 24 % 20-40 MCH 24.0 pg 26.0-34.0 MCHC 28.7 g/dL 32.0-36.0 MCV 83.5 fL 80.0-96.0 Monocytes 7 % 4-8 MPV 10.2 fL 8.8-14.8 Neutrophils 66 % 50-70 Ovalocytes Occasional NA Platelet Count 458 K/uL 150-400 Polychromasia Occasional NA RBC 3.21 10*6/uL 3.70-5.20 RDW 18.8 % 0.0-14.5 Schistocytes Occasional NA Target Cells Occasional NA Tear Drop Cells Occasional NA WBC 7.2 K/uL 5.0-10.0 B600.798 - 03/06/16 18:02 [email or web address] 1 UNIT PC ISSUED B100.0700 - 03/06/16 18:15 BLOOD TYPE O POSITIVE ANTIBODY SCREEN POSITIVE BLASTTXDATE [id number] B411.0000 - 03/06/16 18:15 OXYGEN SAT, ABG Test not performed AB ID A INTREPRETATION POS ANTIBODY IDENTIFICATION Anti-K U500.0135 - 03/06/16 18:15 U500.0135 TRANSFUSED PRODUCT: PACKED CELLS LEUKO IRR 1ST COUNT: 2 L100.0290 - 03/07/16 18:48 HGB - HEMOGLOBIN 9.8 GM/DL 13.5-17.5 HCT - HEMATOCRIT 32.8 % 41-53 CBC With Platelet and Differential - 03/14/16 10:35 Absolute Basophils 0.02 10*3/uL 0.00-0.30 Absolute Eosinophils 0.19 10*3/uL 0.00-0.60 Absolute Lymphocytes 1.41 10*3/uL 1.00-4.00 Absolute Monocytes 0.62 10*3/uL 0.20-0.80 Absolute Neutrophils 5.52 10*3/uL 2.50-7.00 Basophils 0 % 0-2 Eosinophils 2 % 0-6 HCT 35.1 % 40.0-54.0 HGB 10.5 g/dL 12.0-16.0 Lymphocytes 18 % 20-40 MCH 24.9 pg 26.0-34.0 MCHC 29.9 g/dL 32.0-36.0 MCV 83.2 fL 80.0-96.0 Monocytes 8 % 4-8 MPV 11.1 fL 8.8-14.8 Neutrophils 71 % 50-70 Platelet Count 367 K/uL 150-400 RBC 4.22 10*6/uL 3.70-5.20 RDW 21.3 % 0.0-14.5 WBC 7.8 K/uL 5.0-10.0 i-STAT Metabolic Panel WB - 03/14/16 10:35 BUN Venous 19 mg/dl 4-20 Calcium Ionized Venous 1.23 mmol/L 1.19-1.41 Creatinine Venous 1.5 mg/dL 0.7-1.2 Glucose Venous 127 mg/dL 70-100 Potassium, WB 4.3 mmol/L 3.6-5.1 Sodium Venous 142 mmol/L 136-144 Total CO2 Venous 30 mmol/L 25-29 Venous CL 102 mmol/L 99-109 L200.0020 - 05/11/17 15:20 FUNGAL CULTURE. 1.7 mg/dL 0.8-1.5 FUNGAL CULTURE, BLOOD. 11 RATIO 6-26 NA - Sodium 143 MEQ/L 134-144 Potassium 4.4 MEQ/L 3.6-5 Chloride 103 MEQ/L 98-107 CO2 - Carbon Dioxide 29 MEQ/L 22-30 Anion Gap 11 MEQ/L 5-15 BUN - Blood Urea Nitrogen 18.0 MG/DL 9-20 Glomerular Filtration Rate 39 NRG Glucose 239 MG/DL 75-110 Osmolality,Calculated 285 MOSM/KG 261-280 Calcium 9.5 MG/DL 8.4-10.2 Bilirubin,Total 0.60 MG/DL 0.20-1.30 Alkaline Phosphatase 130 U/L 38-126 AST - Aspartate Amino Transfer 128 U/L 17-59 TP - Total Protein 8.1 g/dL 6.3-8.2 Albumin Level 4.5 g/dL 3.5-5.0 Globulin 3.6 G/DL 2.4-3.6 Albumin/Globulin Ratio 1.3 RATIO 1.1-2.2 LICTERUS < 2 0-7 LHEMOLYSIS < 15 0-25 LTURBIDITY < 20 0-20 LALTV 62 U/L 1-50 L300.4950 - 05/11/17 15:20 Lipase 136 U/L 23-300 L100.0050 - 05/11/17 15:20 WBC - WHITE BLOOD COUNT 7.6 T/MM3 4.5-11.0 RED BLOOD COUNT 3.33 M/MM3 4.50-5.90 HGB - HEMOGLOBIN 11.3 GM/DL 13.5-17.5 HCT - HEMATOCRIT 36.1 % 41-53 MEAN CORPUSCULAR VOLUME 108.4 UM3 80-100 MEAN CORPUSCULAR HGB 33.9 UUG 26-34 MEAN CORPUSCULAR HGB CONC(MCHC 31.3 GM/DL 31-37 RDW STANDARD DEVIATION 77.0 FL 36.9-50.2 PLT - PLATELET COUNT 204 T/MM3 130-400 MEAN PLATELET VOLUME 13.3 UM3 9.4-12.4 L100.0105 - 05/11/17 15:20 NEUTROPHILS % (MANUAL) 80.0 % 33-66 LYMPHOCYTES % (MANUAL) 13.0 % 23-45 MONOCYTES % (MANUAL) 6.0 % 0-9.0 EOSINOPHILS % (MANUAL) 1.0 % 0-4 PROLYMPHOCYTES % 6.1 T/MM3 1.8-7.7 NEUTROPHILS # (MANUAL) 0.5 T/MM3 0-0.8 MONOCYTES # (MANUAL) 0.1 T/MM3 0-0.5 POIKILOCYTOSIS 1+ NRG MACROCYTOSIS 1+ NRG POLYCHROMASIA 1+ NRG Lymphocytes # (Manual) 1.0 T/MM3 1-4.8 LRBCMOR Abnormal NRG L200.0050 - 05/11/17 17:12 POTASSIUM Urine, Void-CC/notCC NRG CHLORIDE YELLOW YELLOW ANION GAP CLEAR NRG BLOOD UREA NITROGEN 5.5 5.0-8.0 BUN/CREATININE RATIO 2+ NEGATIVE GLUCOSE 1+ NEGATIVE CALCIUM TRACE NEGATIVE BILIRUBIN, CONJUG & NEGATIVE NEGATIVE UNCONJUG Specific [place],Urine >=1.030 1.015-1.025 Leukocyte Esterase,Urine NEGATIVE NEGATIVE Nitrate,Urine NEGATIVE NEGATIVE Urobilinogen,Urine 0.2 EU/DL NORMAL Occult Blood,Urine - Dipstick NEGATIVE NEGATIVE L200.0050 - 05/11/17 17:12 POTASSIUM Urine, Void-CC/notCC NRG CHLORIDE YELLOW YELLOW ANION GAP CLEAR NRG BLOOD UREA NITROGEN 5.5 5.0-8.0 BUN/CREATININE RATIO 2+ NEGATIVE GLUCOSE 1+ NEGATIVE CALCIUM TRACE NEGATIVE BILIRUBIN, CONJUG & NEGATIVE NEGATIVE UNCONJUG TOTAL PROTEIN 0-1 /HPF 0-3 ALBUMIN 0-1 /HPF 0-5 ALBUMIN/GLOBULIN RATIO 0-5 NRG CKMB Trace NEGATIVE TROPONIN I 3-5 /LPF NRG TRANSFERRIN Present NRG GENTAMICIN,RANDOM Cult not indicated NRG Specific [place],Urine >=1.030 1.015-1.025 Leukocyte Esterase,Urine NEGATIVE NEGATIVE Nitrate,Urine NEGATIVE NEGATIVE Urobilinogen,Urine 0.2 EU/DL NORMAL Occult Blood,Urine - Dipstick NEGATIVE NEGATIVE L100.0050 - 05/24/17 20:16 WBC - WHITE BLOOD COUNT 7.6 T/MM3 4.5-11.0 RED BLOOD COUNT 3.38 M/MM3 4.50-5.90 HGB - HEMOGLOBIN 11.5 GM/DL 13.5-17.5 HCT - HEMATOCRIT 36.6 % 41-53 MEAN CORPUSCULAR VOLUME 108.3 UM3 80-100 MEAN CORPUSCULAR HGB 34.0 UUG 26-34 MEAN CORPUSCULAR HGB CONC(MCHC 31.4 GM/DL 31-37 RDW STANDARD DEVIATION 66.8 FL 36.9-50.2 PLT - PLATELET COUNT 194 T/MM3 130-400 MEAN PLATELET VOLUME 12.9 UM3 9.4-12.4 NEUTROPHILS % (AUTO) 78.1 % 33-66 LYMPHOCYTES % (AUTO) 15.1 % 23-45 MONOCYTES % (AUTO) 4.6 % 0-9.0 EOSINOPHILS % (AUTO) 1.6 % 0-4 BASOPHILS % (AUTO) 0.3 % 0-2 IMMATURE GRANULOCYTE % (AUTO) 0.3 % 0.0-0.5 NEUTROPHILS # (AUTO) 6.0 T/MM3 1.8-7.7 LYMPHOCYTES # (AUTO) 1.2 T/MM3 1-4.8 MONOCYTES # (AUTO) 0.4 T/MM3 0-0.8 EOSINOPHILS # (AUTO) 0.1 T/MM3 0-0.5 BASOPHILS # (AUTO) 0.0 T/MM3 0-0.2 IMMATURE GRANULOCYTE # (AUTO) 0.02 T/MM3 0.00-0.03 L200.0020 - 05/24/17 20:16 FUNGAL CULTURE. 1.9 mg/dL 0.8-1.5 FUNGAL CULTURE, BLOOD. 12 RATIO 6-26 NA - Sodium 148 MEQ/L 134-144 Potassium 4.6 MEQ/L 3.6-5 Chloride 104 MEQ/L 98-107 CO2 - Carbon Dioxide 32 MEQ/L 22-30 Anion Gap 12 MEQ/L 5-15 BUN - Blood Urea Nitrogen 23.0 MG/DL 9-20 Glomerular Filtration Rate 34 NRG Glucose 161 MG/DL 75-110 Osmolality,Calculated 291 MOSM/KG 261-280 Calcium 10.2 MG/DL 8.4-10.2 Bilirubin,Total 0.80 MG/DL 0.20-1.30 Alkaline Phosphatase 130 U/L 38-126 AST - Aspartate Amino Transfer 120 U/L 17-59 TP - Total Protein 8.1 g/dL 6.3-8.2 Albumin Level 4.4 g/dL 3.5-5.0 Globulin 3.7 G/DL 2.4-3.6 Albumin/Globulin Ratio 1.2 RATIO 1.1-2.2 LICTERUS < 2 0-7 LHEMOLYSIS < 15 0-25 LTURBIDITY < 20 0-20 LALTV 53 U/L 1-50 L200.3850 - 05/24/17 20:16 TSH - Thyroid Stim Hormone 72.60 miu/L 0.47-4.68 L200.3250 - 05/24/17 20:16 Acetaminophen < 10 UG/ML 10-30 L200.3300 - 05/24/17 20:16 Salicylate < 1.0 MG/DL 2-20 L300.5675 - 05/24/17 20:16 LETOH1 <10 mg/dL <10 Encounters ACCT No. Visit Discharge Status Pt. Type Provider Facility Loc./Unit Complaint Date/Time [id number] 11/09/2014 11/09/2014 CLS Outpatie 1 12:48:00 23:59:59 nt [id number] 09/12/2016 Document [id number] 05:16:35 Registra tion [id number] 03/07/2016 Document [id number] 05:16:40 Registra tion [id number] 10/27/2015 Document [id number] 05:17:30 Registra tion [id number] 10/03/2015 Document [id number] 05:17:39 Registra tion [id number] 09/21/2015 Document [id number] 05:16:17 Registra tion [id number] 07/29/2015 Document [id number] 05:16:43 Registra tion [id number] 07/21/2015 Document [id number] 05:16:07 Registra tion [id number] 05/18/2015 Document [id number] 05:16:20 Registra tion [id number] 03/30/2015 Document 13496 05:16:27 Registra tion [id number] 03/28/2015 Document 096 15:32:00 Registra tion [id number] 03/14/2015 Document [id number] 05:16:32 Registra tion [id number] 03/13/2015 Document [id number] 05:15:37 Registra tion [id number] 03/12/2015 Document [id number] 05:15:31 Registra tion [id number] 03/11/2015 Document [id number] 05:16:42 Registra tion [id number] 03/10/2015 Document [id number] 05:16:27 Registra tion [id number] 03/09/2015 Document [id number] 05:16:47 Registra tion [id number] 03/08/2015 Document [id number] 05:16:23 Registra tion [id number] 03/07/2015 Document [id number] 05:16:59 Registra tion [id number] 12/07/2014 Document [id number] 13:27:08 Registra tion [id number] 12/07/2014 Document [id number] 13:12:17 Registra tion [id number] 12/07/2014 Document [id number] 12:57:27 Registra tion [id number] 12/07/2014 Document [id number] 12:43:33 Registra tion [id number] 12/07/2014 Document [id number] 12:35:37 Registra tion [id number] 12/07/2014 Document 72191 12:28:23 Registra tion [id number] 12/07/2014 Document 48186 12:00:22 Registra tion [id number] 12/07/2014 Document [id number] 11:27:15 Registra tion [id number] 12/07/2014 Document [id number] 10:49:24 Registra tion [id number] 12/07/2014 Document [id number] 10:44:17 Registra tion [id number] 12/07/2014 Document [id number] 10:39:01 Registra tion [id number] 12/07/2014 Document [id number] 10:21:05 Registra tion [id number] 12/07/2014 Document [id number] 10:15:46 Registra tion [id number] 12/07/2014 Document [id number] 09:57:57 Registra tion [id number] 12/07/2014 Document [id number] 09:53:05 Registra tion [id number] 12/07/2014 Document [id number] 09:43:12 Registra tion [id number] 12/07/2014 Document [id number] 09:31:44 Registra tion [id number] 12/07/2014 Document [id number] 08:58:55 Registra tion [id number] 12/07/2014 Document [id number] 08:52:54 Registra tion [id number] 05/24/2017 05/24/2017 DIS Emergenc JUNE DO, Imtiaz [facility] 027 18:56:00 22:20:00 y ODETTE [facility] depression [id number] 05/11/2017 05/11/2017 DIS Emergenc Imtiaz LICONA MD poss kidney 680 14:34:00 19:11:00 y [facility] [id number] 03/06/2016 03/07/2016 DIS Malina Kitchen BLDTRN 678 17:45:00 00:00:00 , Medical PROSPER Phan [place] [id number] 11/23/2015 11/23/2015 DIS Emergenc CLIFFORD GREENE Kitchen ED 355 19:24:00 21:51:00 y ODETTE [facility] [id number] 09/04/2015 09/06/2015 DIS Inpatien CINTHIA Kitchen [facility] 768 09:17:00 15:00:00 t , [facility] ANDRESSA Benton [place] [id number] 10/27/2015 Document 880 13:40:00 Registra tion [id number] 02/07/2016 02/07/2016 CLS Outpatie Khicha, 101 17:02:02 23:59:59 nt Maik [id number] 01/11/2015 Document 07:13:13 Registra tion [id number] 09/18/2016 09/18/2016 DIS Outpatie Yammine, [facility] New NPV/ MIO/P 625 08:59:00 23:59:00 nt Walter Telma Pulm ULM HTN [facility] [id number] 09/18/2016 09/18/2016 DIS Outpatie Yammine, [facility] New IGGY /YAMMIN/ 931 08:56:00 23:59:00 nt Walter Telma Pulm PULM HTN [facility] [id number] 09/11/2016 09/11/2016 DIS Outpatie Luinstra, [facility] New FM EST WAS 080 13:58:00 23:59:00 nt Edgar [facility] [id number] 03/14/2016 03/14/2016 DIS Outpatie Deshpande, [facility] New FM POSSIBLE LOW 561 09:54:00 23:59:00 nt Prosper Phan Telma BLOOD COUNT Clinic [id number] 03/06/2016 03/06/2016 DIS Outpatie [place] [facility] New FM symptoms of 020 16:01:00 23:59:00 nt [facility] low blood M [facility] [id number] 10/26/2015 10/26/2015 DIS Outpatie Deshpande, [facility] New FM TCPA 724 10:26:00 23:59:00 nt Prosper Spraguei ELEVATED Clinic BLOOD SUGARS [id number] 09/20/2015 09/20/2015 DIS Outpatie Deshpande, [facility] New FM 1 WK FU NMC 589 13:14:00 23:59:00 nt Prosper Phan Telma DISCHARGE Clinic 7.20.16 ANEMIA [id number] 07/20/2015 07/20/2015 DIS Outpatie Deshpande, [facility] New FM SOB weakness 226 12:59:00 23:59:00 nt Prosper Phan Telma fatique Clinic [id number] 05/17/2015 05/17/2015 DIS Outpatie Deshpande, Via [facility] New FM dizziness and 092 11:15:00 23:59:00 nt Prosper Phan Telma karoline Clinic [id number] 04/19/2015 04/19/2015 DIS Outpatie [place] [facility] Sleep mask fit 090 11:13:00 23:59:00 nt Telma Redd CP Raffi A Clinic [id number] 04/19/2015 04/19/2015 DIS Outpatie [facility] Sleep 6-8 week karoline 937 10:09:00 23:59:00 nt Telma CP cpap Clinic [id number] 03/29/2015 03/29/2015 DIS Outpatie Deshpande, [facility] New FM Followup CHF 645 10:15:00 23:59:00 nt Prosper Phan Telma Clinic [id number] 03/06/2015 03/06/2015 DIS Outpatie Deshpande, Via [facility] New FM soa 276 15:51:00 23:59:00 nt Prosper Phan Telma Clinic [id number] 03/06/2015 03/06/2015 DIS Outpatie Deshpande, Via [facility] Mur Tachycardia, 832 13:32:00 23:59:00 nt Prosper Phan Telma Card R00.0 Clinic [id number] 02/22/2015 02/22/2015 CLS Outpatie Irene, [facility] Sleep work with 246 11:24:00 23:59:59 nt Cassie Hollis CP mask and Clinic humid [id number] 02/22/2015 02/22/2015 DIS Outpatie [facility] Sleep 4 to 6 wk ck 228 10:06:00 23:59:00 nt Telma CP cpap Clinic cmplnce [id number] 12/29/2014 12/29/2014 DIS Outpatie Renee, [facility] Sleep PSG WEST Sept 687 13:42:00 23:59:00 nt Andriy Mosher 29 Clinic [id number] 11/15/2014 11/15/2014 DIS Outpatie [place], Via [facility] Sleep PSG- RBD MNTGE 199 19:07:00 23:59:00 nt Andriy Hollis W Clinic [id number] 10/27/2014 10/27/2014 DIS Outpatie [place], Via [facility] Sleep DR Malina DESHPANDE 920 14:28:00 23:59:00 nt Andriy Mosher REF SNORING Clinic NIGHT TERRORS [id number] 09/28/2014 09/28/2014 DIS Outpatie Jeramy, Via [facility] New FM recheck blood 437 12:58:00 23:59:00 nt Prosper Hollis sugars Clinic bouncing up and down [id number] 08/10/2014 08/10/2014 DIS Outpatie Jeramy, Via [facility] New FM Diabetes 444 15:20:00 23:59:00 nt Prosper Hollis Check Clinic [id number] 02/07/2014 02/07/2014 DIS Outpatie Romina, Via [facility] New FM possible 010 08:40:00 23:59:00 nt Cornelia Hollis kidney stone Clinic [id number] 01/28/2014 01/28/2014 DIS Outpatie Deshpande, Via [facility] New FM f/ u 657 09:45:00 23:59:00 nt Prosper Hollis hospitalizati Clinic on depression/clarke icidal ideation [id number] 07/20/2014 Document 311 14:47:00 Registra tion [id number] 07/20/2014 Document 077 14:32:00 Registra tion [id number] 06/13/2014 Document 548 08:26:00 Registra tion
[2017-05-26] MEDS: SALINE FLUSH 10ml SYRINGE IVF PRN (13:59)
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
[2017-05-26] MEDS ORDERED: FERROUS GLUCONATE 324 MG TABLET PO PRN (15:37)
[2017-05-26] MEDS ORDERED: HYDROCODONE/APAP 7.5 MG/325 MG TABLET PO PRN (15:37)
[2017-05-26] MEDS: 1/2 NS 1,000 ML IV SCH (16:08)
[2017-05-26] MEDS: OMEPRAZOLE 20 MG CAPSULE PO SCH (20:47)
[2017-05-26] MEDS ORDERED: OLANZapine 2.5 MG TABLET PO SCH (21:00)
[2017-05-26] MEDS ORDERED: OLANZapine 5 MG TABLET PO SCH (21:00)
[2017-05-26] MEDS: INSULIN DETEMIR 100unit/ml INJECTION SQ SCH (21:14)
[2017-05-27] MEDS: 1/2 NS 1,000 ML IV SCH ×3 (02:17→23:24)
[2017-05-27] MEDS: OMEPRAZOLE 20 MG CAPSULE PO SCH ×2 (05:52→20:01)
[2017-05-27] MEDS: LEVOTHYROXINE 25 MCG TABLET PO SCH (05:52)
[2017-05-27] MEDS ORDERED: LEVOTHYROXINE 125 MCG TABLET PO SCH (06:30)
[2017-05-27] MEDS ORDERED: CARVEDILOL 12.5 MG PO SCH (08:00)
[2017-05-27] MEDS: ASPIRIN *EC* 81 MG TABLET PO SCH (08:12)
[2017-05-27] MEDS ORDERED: POM AMIODARONE 200 MG TABLET PO SCH (09:00)
[2017-05-27] MEDS ORDERED: DULOXETINE 60 MG CAPSULE PO SCH (09:00)
--- NOTE | 2017-05-27 11:14 | Progress Note ---
- Date 05/27/17 Subjective: F/U: delirium with behaviors, acute kidney injury, urinary retention, dehydration, orthostatic hypotension. Mr. Tavares is seen this morning while resting in bed and watching TV. He reports that he is feeling better today. He denies any chest pain, shortness of breath, abdominal pain, nausea, vomiting or diarrhea. Nursing expressed concern about the patient complaining of being "dizzy" with standing and falling /leaning towards the right. On exam, he denies dizziness or lightheadedness and complains more of lower extremity weakness. Clinical exam reveals slight left sided facial droop with slight tongue deviation to the left as well as left upper and lower extremity weakness with weak wood heel flap inserter on left as compared to right. Unfortunately, due to the patient's advanced dementia, ROS is limited. No known history of prior CVA or neurologic changes. CT head pending. Labs revealed continued improvement in SCr (SCr 1.9) - baseline SCr 1.6. Blood pressures improved with holding home amiodarone and coreg as well as 1L NS given in ED. Orthostatic blood pressures this morning were - 166/92, HR 67 supine; 141/76, HR 73 sitting; 145/72, HR 74 standing. Telemetry reveals 1st degree AV block with rate 68. A1c 6.1. Objective Vital signs: Temperature 96.7 F L 05/27/17 07:00 Pulse Rate 60 05/27/17 08:00 Respiratory Rate 18 05/27/17 07:00 Blood Pressure 145/72 H 05/27/17 09:21 Pulse Oximetry 93 05/27/17 07:00 Rhythm: First Degree AV-Block Height/Weight/BMI: Height 6 ft Weight 192 lb 7.417 oz Body Mass Index 25.4 Comments: Patient resting in bed, watching TV. - Constitutional Present: no acute distress, well nourished, well developed, cooperative - Routine HEENT Exam Head: Present: normocephalic, atraumatic Eye: Present: PERRL. Absent: conjunctival icterus ENT: Present: mucous membranes moist, oropharynx clear - Routine Respiratory Exam Present: CTA bilaterally. Absent: rales, respiratory distress, rhonchi, stridor , wheezes, crackles - Routine Cardiovascular Exam Present: RRR, S1, S2 - Routine Abdominal Exam Present: soft, normoactive bowel sounds, non distended, non tender - Routine Exam Comments: Kline in place - draining yellow urine. - Routine Extremities Exam Present: edema, pulses intact - Routine Back/Spine/Pelvis Exam Back/Spine: Present: kyphosis. Absent: vertebral tenderness - Routine Musculoskeletal Exam Musculoskeletal: Present: no clubbing or cyanosis - Routine Skin Exam Present: dry, warm. Absent: jaundice Comments: afebrile. - Routine Neurological Exam Present: alert, moving all extremities, hearing grossly intact, facial asymmetry (left sided droop) Slight left sided facial droop; slight tongue deviation to the left; decreased wood heel flap inserter on left (3) as compared to right (4); decreased strength to left upper and lower extremity (3) as compared to right (4); - Routine Lymphatic Exam Lymphatic: Absent: lymphedema - Routine Psychiatric Exam Present: cooperative Results - Labs CBC & Chem 7: 05/27/17 05:36 05/27/17 05:36 Assessment and Plan (1) Acute kidney injury Current visit: Yes Status: Acute Assessment and Plan: Impression Acute kidney injury-creatinine 2.4 (baseline 1.6) Dehydration Acute urinary retention Hypernatremia-present on admission, 148 - resolved. Orthostatic hypotension Hypothyroidism DM Hypertension Hyperlipidemia CKD Coronary artery disease Anxiety, depression History of anemia. History of suicide attempt Plan - 05/27/17: Scr trending down (1.9) - baseline 1.6. Continue to monitor closely. Renal sonogram results pending. CPK elevated (CPK 319). Urine creatine 189.5 and urine sodium elevated at 92. Continue 1/2NS at 100cc/hr for hydration. Monitor closely for signs of fluid overload. A1c 6.1. Continue Levemir 6.5 units QHS and monitor blood sugars closely. Sliding scale insulin - low - available as needed. Monitor urinary output closely - Kline catheter in place. Left facial droop with tongue deviation and left sided weakness noted on exam. Unknown if new findings. CT head pending. Orthostatic hypotension improved. Will continue to hold home amiodarone and coreg given concern for possible CVA and desire for passive hypertension until known as well as elevated renal function. Anticipate resuming home amiodarone and coreg once renal function improved and CT head results known incase need for passive hypertension. Monitor closely on telemetry. Continue to monitor blood pressures carefully and obtain orthostatics twice a day. Hypernatremia resolved. Continue to monitor electrolytes closely. SCDs to bilateral lower extremity for DVT prophylaxis. Case management to work with patient and family on obtaining DPOA for . Zyprexa 5mg QHS initiated on 05/24/17 in ED due to increased behaviors secondary to dementia. Dose decreased to 2.5mg QHS due to increased prolonged sedation. Given urinary retention and behavioral changes, will hold for time being. Consider psychiatric evaluation once medically stable. Severe hypothyroidism-discussed with endocrinology. Start Synthroid 25 g by mouth daily. Can increase by 25 g every couple of months as long as the patient is tolerating it. Free T3 and T4 pending. This will need to be followed in the outpatient setting with primary care. B-12 and folate levels pending regarding macrocytic anemia. Speech therapy has been consulted for dysphagia evaluation - awaiting evaluation. Encourage participation in therapies. Patient has reported AMY history but does not tolerate home CPAP. Overnight oximetry reveals he was stable on room air all night. Recheck labs in AM to monitor blood counts, electrolytes and renal function. Will recheck CPK to monitor for down trending. GI Prophylaxis: other (Prilosec) Resuscitation Status: Do Not Resuscitate - Time spent with patient Time with patient PN: 35 minutes - Physician Narrative Physician: Ava Rincon MD Narrative: Date: 05/27/17 Time: 1800 I have independently evaluated and examined this patient. I reviewed the chart, the patient's history, and the CONTINUOUS IMPROVEMENT DIRECTOR/PA's documented findings as above. We discussed and formulated the assessment and plan as above with additions as below: Mr. Tavares was seen with his at the bedside. Patient reports he is unable to stand. His describes him being limp and unable to walk following Zyprexa administration in addition to impaired urinary output over the next 48 hours prompting hospitalization. The patient denies back pain but reports he has some sciatica in the left lower extremity. NAD, minor flattening left nasolabial fold; I don't appreciate significant weakness on the left side relative to the right in the extremities Oriented to [facility], [birth year]17. Correctly tells me how long he's been and doesn't want to identify/discuss the president because it will make him angry. Reports his should make decisions for him but seemed to have some difficulty with the concept of someone else making decisions Overnight oximetry on room air with 12 seconds below 89% CT head reviewed by myself demonstrating atrophy but no evidence of stroke or acute pathology Renal sonogram without obstruction although the kidneys have increased echogenicity consistent with chronic kidney disease and there is probable nonobstructing calculi on the right side and a small simple cyst. PT/OT reported patient had difficulty following commands with testing, decreased safety awareness with walker, and leaning to the right/backward. Renal function improving with hydration although urine output has remained poor ; nursing has not described hallucinations and patient's indicates patient is more alert than he was prior to hospitalization. She describes significant depression which worsens during the winter and questions if an alternate antidepressant is needed. She is interested in DPOA but based on my interaction with patient today I'm not convinced that the patient is competent to sign legal paperwork currently; reassess tomorrow. We' ll also ask Dr. Jackson to evaluate both for acute psychiatric concerns and competency. Patient converted to inpatient status due to acute deterioration in renal function, dehydration, inability to ambulate safely, and altered mental status. Patient is not safe for discharge home at this time. Finally patient's reports he was previously on levothyroxine 12.5 g daily but discontinued it quite a while ago because it caused a "bad taste" in his mouth. Old records reviewed, head CT reviewed by myself, overnight oximetry reviewed by myself; Dr. Jackson notified of consult. Hospital Course Summary Disclaimer: The visit summary below is not to be considered part of the above Progress Note. Hospital Course: Impression Acute kidney injury-creatinine 2.4 (baseline 1.6) Dehydration Acute urinary retention Hypernatremia-present on admission, 148 Orthostatic hypotension Hypothyroidism DM Hypertension Hyperlipidemia CKD Coronary artery disease Anxiety, depression History of anemia. History of suicide attempt Plan-05/26/17 Admit outpatient observation under the care of Dr. Patel for dehydration and acute kidney injury with urinary retention. He was given 1 liter of normal saline while in the emergency room. Will switch to half-normal saline at 100 ML per hour for gentle hydration Will monitor Accu-Cheks and continue on Levemir 6.5 units at HS Kline catheter was placed. Given urinary retention over 300 ML. Will monitor urinary output. Given orthostatic hypotension, Will place home amiodarone and Coreg on hold. Will likely need to resume this once patient is better hydrated. Monitor blood pressures carefully and obtain orthostatics twice a day Follow routine electrolytes and renal function given acute kidney injury with hypernatremia Given findings of hypothyroidism. Will start patient on levothyroxine 125 mcg daily. Obtain Free T3 and T4. This will need to be followed in the outpatient setting with primary care SCDs to bilateral lower extremity for DVT prophylaxis Code status - DNR as per . She would like to speak to someone regarding DPOA paperwork. Will discuss further orders and plan of care with attending, Dr. Patel At time of discharge medical care will return to primary care provider, Dr Whyte Plan - 05/27/17: Scr trending down (1.9) - baseline 1.6. Continue to monitor closely. Renal sonogram results pending. CPK elevated (CPK 319). Urine creatine 189.5 and urine sodium elevated at 92. Continue 1/2NS at 100cc/hr for hydration. Monitor closely for signs of fluid overload. A1c 6.1. Continue Levemir 6.5 units QHS and monitor blood sugars closely. Sliding scale insulin - low - available as needed. Monitor urinary output closely - Kline catheter in place. Left facial droop with tongue deviation and left sided weakness noted on exam. Unknown if new findings. CT head pending. Orthostatic hypotension improved. Will continue to hold home amiodarone and coreg given concern for possible CVA and desire for passive hypertension until known as well as elevated renal function. Anticipate resuming home amiodarone and coreg once renal function improved and CT head results known incase need for passive hypertension. Monitor closely on telemetry. Continue to monitor blood pressures carefully and obtain orthostatics twice a day. Hypernatremia resolved. Continue to monitor electrolytes closely. SCDs to bilateral lower extremity for DVT prophylaxis. Case management to work with patient and family on obtaining DPOA for . Zyprexa 5mg QHS initiated on 05/24/17 in ED due to increased behaviors secondary to dementia. Dose decreased to 2.5mg QHS due to increased prolonged sedation. Given urinary retention and behavioral changes, will hold for time being. Dr. Jackson consulted. Severe hypothyroidism-discussed with endocrinology. Start Synthroid 25 g by mouth daily. Can increase by 25 g every couple of months as long as the patient is tolerating it. Free T3 and T4 pending. This will need to be followed in the outpatient setting with primary care. B-12 and folate levels pending regarding macrocytic anemia. Speech therapy has been consulted for dysphagia evaluation - awaiting evaluation. Encourage participation in therapies. Patient has reported AMY history but does not tolerate home CPAP. Overnight oximetry reveals he was stable on room air all night. Recheck labs in AM to monitor blood counts, electrolytes and renal function. Will recheck CPK to monitor for down trending.
[2017-05-27] MEDS: DULOXETINE 30 MG CAPSULE PO SCH (11:48)
--- NOTE | 2017-05-27 13:21 | CT Scan Report ---
Indication: left sided facial droop/weakness PROCEDURE: CT head/brain wo con: Encounter: Initial Comparison: 09/04/2015 Findings: There is mild prominence of the ventricles and sulci compatible with cortical atrophy. There is moderate periventricular and subcortical white matter changes most commonly associated with small vessel microischemic disease. There is no mass, mass effect, or midline shift. No evidence for intracranial hemorrhage. No intra or extra-axial fluid collections. No evidence for depressed skull fracture. The included portions of the sinuses are clear. IMPRESSION: Mild cortical atrophy and ventricular and subcortical white matter disease. No evidence for acute cortical infarct, intracranial hemorrhage, or mass. .
--- NOTE | 2017-05-27 14:10 | Ultrasound Report ---
Indication: matthew on ckd PROCEDURE: US renal BI: Encounter: Initial Comparison: None. Findings: The kidneys are fairly symmetric in size the right measuring 8.5 cm in length and the left measuring 8.8 cm in length. There does appear to be some increased echogenicity of the renal parenchyma suggesting medical renal disease. There is no definite hydronephrosis or perinephric collection. There is a simple appearing cyst in the superior right kidney that measures 1.5 x 1.4 x 1.3 cm. There are multiple right-sided echogenic foci in the right kidney with some shadowing likely representing a stone, the largest measuring at least 1.2 cm. Impression: Echogenic renal parenchyma suggesting medical renal disease. Right-sided nonobstructing urinary calculi with small simple appearing renal cortical cyst. .
[2017-05-27] MEDS: INSULIN ASPART 100unit/ml INJECTION SQ PRN ×2 (14:58→20:55)
[2017-05-27 15:16] VITALS: BMI 26.1
[2017-05-27] MEDS: INSULIN DETEMIR 100unit/ml INJECTION SQ SCH (20:56)
[2017-05-28] MEDS: OMEPRAZOLE 20 MG CAPSULE PO SCH ×2 (06:26→20:28)
[2017-05-28] MEDS: LEVOTHYROXINE 25 MCG TABLET PO SCH (06:26)
[2017-05-28] MEDS ORDERED: DULOXETINE 30 MG PO SCH (09:00)
[2017-05-28] MEDS: 1/2 NS 1,000 ML IV SCH ×2 (10:09→23:00)
[2017-05-28] MEDS: DULOXETINE 30 MG CAPSULE PO SCH (10:11)
--- NOTE | 2017-05-28 10:44 | Progress Note ---
- Date 05/28/17 Subjective: F/U: delirium with behaviors, acute kidney injury, urinary retention, dehydration, orthostatic hypotension. Mr. Tavares is seen while sitting up in his recliner, watching TV. He is much more alert today and is alert and orientated to person, place and time. He states that he is feeling good, but reports that he did not sleep well last night because of "the kid" in his bed. He reports that he saw a kid in his bed but denies seeing the kid currently. He acknowledges that he occasionally has hallucinations and believes that "the kid" was a hallucination. he denies any other complaints or concerns. No chest pain, shortness of breath, abdominal pain, nausea, vomiting or dysuria. His appetite is fair. He was seen by speech therapy on 05/27/17 for evaluation of possible dysphagia. ST recommended continuation of regular diet but encouraged he eat in upright position, preferably with supervision and encouragement. Do to his decreased oral intake , it was also recommended that he include high calorie shakes. His bowels are moving and urinary output significantly improved after Bumex 1mg IV x 1 dose yesterday. Currently Kline is draining clear yellow urine freely. Labs revealed slight improvement in anemia (Hgb 10.6) and continued improvement in renal function with SCr decreased to 1.7 (baseline reportedly 1.6). Blood sugars remains stable and CRP is trending down. Blood pressure significantly elevated this morning (209/101) prior to medications. His amiodarone and coreg remain on hold since time of admission due to his prior acute renal failure. Overall, he appears to be making slow gains. Awaiting psychiatric evaluation and treatment recommendations. Objective Vital signs: Temperature 96.9 F 05/28/17 08:00 Pulse Rate 73 05/28/17 08:22 Respiratory Rate 18 05/28/17 08:00 Blood Pressure 160/92 H 05/28/17 08:22 Pulse Oximetry 96 05/28/17 08:22 Rhythm: First Degree AV-Block Comments: Patient is sitting up in recliner, watching TV, looking at the menu for lunch options. - Constitutional Present: no acute distress, well nourished, well developed, cooperative - Routine HEENT Exam Head: Present: normocephalic, atraumatic Eye: Present: PERRL. Absent: conjunctival icterus ENT: Present: mucous membranes moist, oropharynx clear - Routine Respiratory Exam Present: CTA bilaterally. Absent: respiratory distress - Routine Cardiovascular Exam Present: RRR, S1, S2, murmur - Routine Abdominal Exam Present: soft, normoactive bowel sounds, non distended, non tender - Routine Extremities Exam Present: edema (trace), pulses intact Comments: strength improved today as compared to yesterday. - Routine Back/Spine/Pelvis Exam Back/Spine: Present: full ROM. Absent: vertebral tenderness - Routine Musculoskeletal Exam Musculoskeletal: Present: moving extremities well - Routine Skin Exam Present: intact, dry, warm Comments: Afebrile. - Routine Neurological Exam Present: alert, oriented X3, CN II-XII intact, moving all extremities, hearing grossly intact, normal speech - Routine Lymphatic Exam Lymphatic: Absent: lymphedema - Routine Psychiatric Exam Present: cooperative Comments: Visual hallucinations over night - resolved on exam. Results - Labs CBC & Chem 7: 05/28/17 04:22 05/28/17 04:22 - Imaging and Cardiology CT scan - head Status: image reviewed by me Additional comments: Date of Exam: 05/27/17 Type of Exam(s): CT head/brain wo con Reason for Exam(s): left sided facial droop/weakness Findings: There is mild prominence of the ventricles and sulci compatible with cortical atrophy. There is moderate periventricular and subcortical white matter changes most commonly associated with small vessel microischemic disease. There is no mass, mass effect, or midline shift. No evidence for intracranial hemorrhage. No intra or extra-axial fluid collections. No evidence for depressed skull fracture. The included portions of the sinuses are clear. IMPRESSION: Mild cortical atrophy and ventricular and subcortical white matter disease. No evidence for acute cortical infarct, intracranial hemorrhage, or mass. Assessment and Plan (1) Acute kidney injury Current visit: Yes Status: Acute Assessment and Plan: Impression Acute kidney injury (baseline 1.6), improving. Dehydration, improving. Acute urinary retention. Hypernatremia-present on admission, 148 - resolved. Orthostatic hypotension, improving. Hypothyroidism DM Hypertension Hyperlipidemia CKD Coronary artery disease Anxiety, depression History of anemia. History of suicide attempt Plan - 05/28/17: Scr trending down (1.7) - baseline 1.6. Continue to monitor closely. Renal sonogram revealed echogenic renal parenchyma suggesting medical renal disease and right sided nonobstructing urinary calculi with small simple appearing renal cortical cyst. Bumex 1mg IV x 1 dose given 05/27/17 with significant improvement in urinary output. Continue to maintain Kline catheter and monitor urinary output closely. CPK trending down. Oral intake improving. Will decrease 1/2NS to 75cc/hr for continued gentle hydration. Monitor closely for signs of fluid overload. Blood pressure significantly elevated this AM (209/101). Will restart home amiodarone 200mg daily as well as carvedilol 12.5mg WB. Continue to monitor blood pressure closely. Continue to monitor closely on telemetry. Blood sugars stable. Continue Levemir 6.5 units QHS and monitor blood sugars closely. Sliding scale insulin - low - available as needed. Strength improved today and patient more alert. CT head showed mild cortical atrophy and ventricular and subcortical white matter disease without evidence of acute cortical infarct, intracranial hemorrhage or mass. Electrolytes stable. Continue to monitor closely. Dr. Jackson (psychiatric) consulted - awaiting evaluation. B12 stable at 675. Folate low-normal at 12.3. Will start daily multivitamin with folate. SCDs to bilateral lower extremity for DVT prophylaxis. Case management to work with patient and family on obtaining DPOA for . Encourage participation in therapies. Recheck labs in AM to monitor blood counts, electrolytes and renal function. Will recheck CPK to monitor for down trending. DVT Prophylaxis: SCD's GI Prophylaxis: other (Prilosec) Resuscitation Status: Do Not Resuscitate - Time spent with patient Time with patient PN: 30 minutes - Physician Narrative Physician: Ava Rincon MD Narrative: Date: 05/28/17 Time: 173 I have independently evaluated and examined this patient. I reviewed the chart, the patient's history, and the PLASTIC SURGERY NURSE/PA's documented findings as above. We discussed and formulated the assessment and plan as above with additions as below: Mr. Vincent was seen with his . He remains confused but is perhaps slightly improved from yesterday. His strength is better and he reports he was able to walk in the [place] with help earlier today. His reports urinary frequency has been long-standing and that he has a known history of BPH. Oriented to 2018 but couldn't identify month or date, correctly identifies [facility] and [facility]; again seems confused at the concept of someone else making medical decisions for him but eventually said he would want his to do so. Respirations nonlabored, abdomen soft Creatinine approaching baseline. Blood sugars low in the morning. Decrease Lantus to 5 units at bedtime; initiate Flomax 0.4 mg at bedtime for probable BPH in conjunction with bladder training and goal of discontinuing Kline in approximately [address] Jackson's notes reviewed-she did not believe the patient was competent to sign legal documents nor do I based on my evaluations yesterday or today. on MMSE. Overnight oximetry reviewed-study completed on room air all night with oxygen saturation <89% for 49 seconds. No need for supplemental oxygen. Hospital Course Summary Disclaimer: The visit summary below is not to be considered part of the above Progress Note. Hospital Course: Impression Acute kidney injury-creatinine 2.4 (baseline 1.6) Dehydration Acute urinary retention Hypernatremia-present on admission, 148 Orthostatic hypotension Hypothyroidism DM Hypertension Hyperlipidemia CKD Coronary artery disease Anxiety, depression History of anemia. History of suicide attempt Plan-05/26/17 Admit outpatient observation under the care of Dr. Patel for dehydration and acute kidney injury with urinary retention. He was given 1 liter of normal saline while in the emergency room. Will switch to half-normal saline at 100 ML per hour for gentle hydration Will monitor Accu-Cheks and continue on Levemir 6.5 units at HS Kline catheter was placed. Given urinary retention over 300 ML. Will monitor urinary output. Given orthostatic hypotension, Will place home amiodarone and Coreg on hold. Will likely need to resume this once patient is better hydrated. Monitor blood pressures carefully and obtain orthostatics twice a day Follow routine electrolytes and renal function given acute kidney injury with hypernatremia Given findings of hypothyroidism. Will start patient on levothyroxine 125 mcg daily. Obtain Free T3 and T4. This will need to be followed in the outpatient setting with primary care SCDs to bilateral lower extremity for DVT prophylaxis Code status - DNR as per . She would like to speak to someone regarding DPOA paperwork. Will discuss further orders and plan of care with attending, Dr. Patel At time of discharge medical care will return to primary care provider, Dr Whyte Plan - 05/27/17: Scr trending down (1.9) - baseline 1.6. Continue to monitor closely. Renal sonogram results pending. CPK elevated (CPK 319). Urine creatine 189.5 and urine sodium elevated at 92. Continue 1/2NS at 100cc/hr for hydration. Monitor closely for signs of fluid overload. A1c 6.1. Continue Levemir 6.5 units QHS and monitor blood sugars closely. Sliding scale insulin - low - available as needed. Monitor urinary output closely - Kline catheter in place. Left facial droop with tongue deviation and left sided weakness noted on exam. Unknown if new findings. CT head pending. Orthostatic hypotension improved. Will continue to hold home amiodarone and coreg given concern for possible CVA and desire for passive hypertension until known as well as elevated renal function. Anticipate resuming home amiodarone and coreg once renal function improved and CT head results known incase need for passive hypertension. Monitor closely on telemetry. Continue to monitor blood pressures carefully and obtain orthostatics twice a day. Hypernatremia resolved. Continue to monitor electrolytes closely. SCDs to bilateral lower extremity for DVT prophylaxis. Case management to work with patient and family on obtaining DPOA for . Zyprexa 5mg QHS initiated on 05/24/17 in ED due to increased behaviors secondary to dementia. Dose decreased to 2.5mg QHS due to increased prolonged sedation. Given urinary retention and behavioral changes, will hold for time being. Dr. Jackson consulted. Severe hypothyroidism-discussed with endocrinology. Start Synthroid 25 g by mouth daily. Can increase by 25 g every couple of months as long as the patient is tolerating it. Free T3 and T4 pending. This will need to be followed in the outpatient setting with primary care. B-12 and folate levels pending regarding macrocytic anemia. Speech therapy has been consulted for dysphagia evaluation - awaiting evaluation. Encourage participation in therapies. Patient has reported AMY history but does not tolerate home CPAP. Overnight oximetry reveals he was stable on room air all night. Recheck labs in AM to monitor blood counts, electrolytes and renal function. Will recheck CPK to monitor for down trending. Plan - 05/28/17: Scr trending down (1.7) - baseline 1.6. Continue to monitor closely. Renal sonogram revealed echogenic renal parenchyma suggesting medical renal disease and right sided nonobstructing urinary calculi with small simple appearing renal cortical cyst. Bumex 1mg IV x 1 dose given 4/10/18 with significant improvement in urinary output. Continue to maintain Kline catheter and monitor urinary output closely. CPK trending down. Oral intake improving. Will decrease 1/2NS to 75cc/hr for continued gentle hydration. Monitor closely for signs of fluid overload. Blood pressure significantly elevated this AM (209/101). Will restart home amiodarone 200mg daily as well as carvedilol 12.5mg WB. Continue to monitor blood pressure closely. Continue to monitor closely on telemetry. Blood sugars stable. Continue Levemir 6.5 units QHS and monitor blood sugars closely. Sliding scale insulin - low - available as needed. Strength improved today and patient more alert. CT head showed mild cortical atrophy and ventricular and subcortical white matter disease without evidence of acute cortical infarct, intracranial hemorrhage or mass. Electrolytes stable. Continue to monitor closely. Dr. Jackson (psychiatric) consulted - awaiting evaluation. B12 stable at 675. Folate low-normal at 12.3. Will start daily multivitamin with folate. SCDs to bilateral lower extremity for DVT prophylaxis. Case management to work with patient and family on obtaining DPOA for . Encourage participation in therapies. Recheck labs in AM to monitor blood counts, electrolytes and renal function. Will recheck CPK to monitor for down trending.
--- NOTE | 2017-05-28 16:21 | Neuropsychiatric Consult ---
[facility] Date: 05/28/17 Requesting Physician: Ava Rincon Reason for Consultation: Capacity evaluation, depression Start Time: 12:00 Stop Time: 12:40 History of Present Illness: Patient is a 77-year-old , retired male who was admitted to [facility] on 05/26/17. Psychiatry was consulted for capacity evaluation and due to concerns for poorly treated depression. Patient is pleasant but confused during interview. He is oriented to place and self only, but not date/situation. He complains of feeling dizzy. He reports his mood is "not good" and estimates he been in hospital x 1 week and mood deteriorated since then (this is not an accurate timeline). He says he sometimes has a hard time falling asleep and appetite has not been great because of a bad taste in his mouth. He denied ever having AVH to me but apparently reported it to the medical team today. He denies any recent SI though he had a suicide attempt years ago. He was hospitalized but he can't remember what method he attempted or what meds he took at that time. He also endorses memory problems x 1 year. 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 He has been for 56 years, has 3 children and lives in a house with his here in [place]. He reports that he quit smoking year ago and estimates that he drinks 3 beers 1x/week. He denies other drug use. He denies any hx of withdrawal seizures or head injuries. NONE OF THE ABOVE HX HAS BEEN CONFIRMED WITH . In regards to medical conditions, patient states "he can't walk very good, he's been having issues" and "they're trying to figure out what's going on with his throat." He says he had a double heart bypass in the past. He can't tell me anything else about his medical conditions or what the doctors have told him here. He doesn't feel he is capable of making his own medical decisions and states he trusts/depends on his to do so. SLUMS was administered and patient scored a 7/30. He was able to name the state , remembered 3/5 objects after a short delay, picked the largest shape and was able to put an X in a triangle. He showed significant executive dysfunction. THE FOLLOWING DOCUMENTATION IS PER PRIMARY TEAM: Diagnoses and hospital course as follows: Acute kidney injury-creatinine 2.4 (baseline 1.6) Dehydration Acute urinary retention Hypernatremia-present on admission, 148 Orthostatic hypotension Hypothyroidism DM Hypertension Hyperlipidemia CKD Coronary artery disease Anxiety, depression History of anemia. History of suicide attempt Plan-05/26/17 Admit outpatient observation under the care of Dr. Patel for dehydration and acute kidney injury with urinary retention. He was given 1 liter of normal saline while in the emergency room. Will switch to half-normal saline at 100 ML per hour for gentle hydration Will monitor Accu-Cheks and continue on Levemir 6.5 units at HS Kline catheter was placed. Given urinary retention over 300 ML. Will monitor urinary output. Given orthostatic hypotension, Will place home amiodarone and Coreg on hold. Will likely need to resume this once patient is better hydrated. Monitor blood pressures carefully and obtain orthostatics twice a day Follow routine electrolytes and renal function given acute kidney injury with hypernatremia Given findings of hypothyroidism. Will start patient on levothyroxine 125 mcg daily. Obtain Free T3 and T4. This will need to be followed in the outpatient setting with primary care SCDs to bilateral lower extremity for DVT prophylaxis Code status - DNR as per . She would like to speak to someone regarding DPOA paperwork. Will discuss further orders and plan of care with attending, Dr. Patel At time of discharge medical care will return to primary care provider, Dr Whyte Plan - 05/27/17: Scr trending down (1.9) - baseline 1.6. Continue to monitor closely. Renal sonogram results pending. CPK elevated (CPK 319). Urine creatine 189.5 and urine sodium elevated at 92. Continue 1/2NS at 100cc/hr for hydration. Monitor closely for signs of fluid overload. A1c 6.1. Continue Levemir 6.5 units QHS and monitor blood sugars closely. Sliding scale insulin - low - available as needed. Monitor urinary output closely - Kline catheter in place. Left facial droop with tongue deviation and left sided weakness noted on exam. Unknown if new findings. CT head pending. Orthostatic hypotension improved. Will continue to hold home amiodarone and coreg given concern for possible CVA and desire for passive hypertension until known as well as elevated renal function. Anticipate resuming home amiodarone and coreg once renal function improved and CT head results known incase need for passive hypertension. Monitor closely on telemetry. Continue to monitor blood pressures carefully and obtain orthostatics twice a day. Hypernatremia resolved. Continue to monitor electrolytes closely. SCDs to bilateral lower extremity for DVT prophylaxis. Case management to work with patient and family on obtaining DPOA for . Zyprexa 5mg QHS initiated on 05/24/17 in ED due to increased behaviors secondary to dementia. Dose decreased to 2.5mg QHS due to increased prolonged sedation. Given urinary retention and behavioral changes, will hold for time being. Dr. aJckson consulted. Severe hypothyroidism-discussed with endocrinology. Start Synthroid 25 g by mouth daily. Can increase by 25 g every couple of months as long as the patient is tolerating it. Free T3 and T4 pending. This will need to be followed in the outpatient setting with primary care. B-12 and folate levels pending regarding macrocytic anemia. Speech therapy has been consulted for dysphagia evaluation - awaiting evaluation. Encourage participation in therapies. Patient has reported AMY history but does not tolerate home CPAP. Overnight oximetry reveals he was stable on room air all night. Recheck labs in AM to monitor blood counts, electrolytes and renal function. Will recheck CPK to monitor for down trending. Plan - 05/28/17: Scr trending down (1.7) - baseline 1.6. Continue to monitor closely. Renal sonogram revealed echogenic renal parenchyma suggesting medical renal disease and right sided nonobstructing urinary calculi with small simple appearing renal cortical cyst. Bumex 1mg IV x 1 dose given 05/27/17 with significant improvement in urinary output. Continue to maintain Kline catheter and monitor urinary output closely. CPK trending down. Oral intake improving. Will decrease 1/2NS to 75cc/hr for continued gentle hydration. Monitor closely for signs of fluid overload. Blood pressure significantly elevated this AM (209/101). Will restart home amiodarone 200mg daily as well as carvedilol 12.5mg WB. Continue to monitor blood pressure closely. Continue to monitor closely on telemetry. Blood sugars stable. Continue Levemir 6.5 units QHS and monitor blood sugars closely. Sliding scale insulin - low - available as needed. Strength improved today and patient more alert. CT head showed mild cortical atrophy and ventricular and subcortical white matter disease without evidence of acute cortical infarct, intracranial hemorrhage or mass. Electrolytes stable. Continue to monitor closely. Dr. Jackson (psychiatric) consulted - awaiting evaluation. B12 stable at 675. Folate low-normal at 12.3. Will start daily multivitamin with folate. SCDs to bilateral lower extremity for DVT prophylaxis. Case management to work with patient and family on obtaining DPOA for . Encourage participation in therapies. Recheck labs in AM to monitor blood counts, electrolytes and renal function. Will recheck CPK to monitor for down trending. [facility] Medical History Updates: Insulin-dependent diabetes. Hypertension. Coronary artery disease. Anemia. Dementia. Chronic kidney disease. Hyperlipidemia. Anxiety, depression. Constipation. History of suicide attempt-overdose. History of nephrolithiasis Surgical History: CABG x 3 - 2004. 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 Hernia repair. Aortic and mitral valve replacement - Bioprosthetic Valve - 2004, 2007. Vasectomy. Cystoscopy with ureteral dilatation-2013, Dr. Nash Family History: States he has a family hx of "emotional problems" - Social History Smoking status: Former smoker Substance use type: does not use Alcohol intake frequency: does not drink Housing: house Household members: spouse Current occupational status: retired Current residence: Apartment/Private Home Review of Systems All systems: reviewed and no additional remarkable complaints except as stated - Constitutional Constitutional: Present: as per HPI - EENMT Eyes: Present: loss of vision (reports far-sightedness) - Neurological Neurological: Present: dizziness, memory loss - Psychiatric Psychiatric: Present: as per HPI Mental Status Exam Vitals: Last Vital Signs Temp 96.9 F 05/28/17 08:00 Pulse 63 05/28/17 16:00 Resp 18 05/28/17 08:00 BP 160/92 H 05/28/17 08:22 Pulse Ox 96 05/28/17 08:22 Height: 1.83 m Weight: 87.3 kg - Mental Status Exam Muscle Strength/Tone: Normal Dressing: Casual Grooming: Fair Attitude: Cooperative Motor Activity: Retardation Eye Contact: Good Speech: Slowed Volume: Normal Rhythm: Appropriate Rhythm Sensory: Alert Orientation: Disoriented to time, Oriented to place Mood: Other ("not good"; restricted affect) Rate of Thoughts: Delayed Thought Organization: [place], Confused Associations: Intact Abstract Reasoning: Poor abstract reasoning Computation: Poor Computation Thought Content: Somatic Concerns Perception/Psychotic: Other (Endorsed VH to primary team but denied to me) Language: Naming Impaired Fund of Knowledge: Poor fund of knowledge Memory: Poor-recent Suicidal Ideation: Denies Homicidal Ideation: Denies Insight: Limited Judgement: Limited Impulse Control: Fair - Laboratory Result Diagrams: 05/28/17 04:22 05/28/17 04:22 Laboratory Results - last 24 hr 05/27/17 05/28/17 05/28/17 20:41 04:22 04:22 WBC 9.2 RBC 3.11 L Hgb 10.6 L Hct 33.3 L MCV 107.1 H MCH 34.1 H MCHC 31.8 RDW Std Deviation 64.0 H Plt Count 173 MPV 13.8 H Immature Gran % (Auto) 0.2 Neut % (Auto) 70.1 H Lymph % (Auto) 20.2 L [place] % (Auto) 6.4 Eos % (Auto) 2.8 Baso % (Auto) 0.3 Neut # (Auto) 6.4 Lymph # (Auto) 1.9 [place] # (Auto) 0.6 Eos # (Auto) 0.3 Baso # (Auto) 0.0 Abs Immat Gran (auto) 0.02 Turbidity < 20 Sodium 142 Potassium 3.9 Chloride 103 Carbon Dioxide 30 Anion Gap 9 BUN 23.0 H Creatinine 1.7 H D GFR Calculation 39 BUN/Creatinine Ratio 14 Glucose 78 Glucometer 165 Calculated Osmolality 276 Calcium 9.0 Icterus Index < 2 Total Creatine Kinase 173 H Specimen Hemolysis 53 H 05/28/17 05/28/17 05/28/17 06:24 07:04 10:41 WBC RBC Hgb Hct MCV MCH MCHC RDW Std Deviation Plt Count MPV Immature Gran % (Auto) Neut % (Auto) Lymph % (Auto) [place] % (Auto) Eos % (Auto) Baso % (Auto) Neut # (Auto) Lymph # (Auto) [place] # (Auto) Eos # (Auto) Baso # (Auto) Abs Immat Gran (auto) Turbidity Sodium Potassium Chloride Carbon Dioxide Anion Gap BUN Creatinine GFR Calculation BUN/Creatinine Ratio Glucose Glucometer 62 78 101 Calculated Osmolality Calcium Icterus Index Total Creatine Kinase Specimen Hemolysis 05/28/17 14:54 WBC RBC Hgb Hct MCV MCH MCHC RDW Std Deviation Plt Count MPV Immature Gran % (Auto) Neut % (Auto) Lymph % (Auto) [place] % (Auto) Eos % (Auto) Baso % (Auto) Neut # (Auto) Lymph # (Auto) [place] # (Auto) Eos # (Auto) Baso # (Auto) Abs Immat Gran (auto) Turbidity Sodium Potassium Chloride Carbon Dioxide Anion Gap BUN Creatinine GFR Calculation BUN/Creatinine Ratio Glucose Glucometer 117 Calculated Osmolality Calcium Icterus Index Total Creatine Kinase Specimen Hemolysis Assessment and Plan (1) Major neurocognitive disorder Problem details: Moderate, vascular etiology History of depression R/O MDD, recurrent R/O Delirium Current visit: Yes Status: Acute Patient does not have capacity to make his own medical decisions and states that he trusts/depends on his to do so. Explained this to him and he agrees. In regards to antidepressant, patient cannot give me reliable history about past medications, symptoms, etc. He has given varying reports of VH -- unclear if these are longstanding or related to a delirium. Will obtain further collateral from and make further recommendations as an addendum.
[2017-05-28] MEDS: AMIODARONE 200 MG TABLET PO SCH (17:44)
[2017-05-28] MEDS: CARVEDILOL 12.5 MG TABLET PO SCH (17:45)
[2017-05-28] MEDS: TAMSULOSIN 0.4 MG CAPSULE PO SCH (20:28)
[2017-05-28] MEDS: INSULIN ASPART 100unit/ml INJECTION SQ PRN (20:36)
[2017-05-28] MEDS: INSULIN DETEMIR 100unit/ml INJECTION SQ SCH (20:37)
[2017-05-29] MEDS: OMEPRAZOLE 20 MG CAPSULE PO SCH ×2 (05:57→20:56)
[2017-05-29] MEDS: LEVOTHYROXINE 25 MCG TABLET PO SCH (05:57)
[2017-05-29] MEDS: ASPIRIN *EC* 81 MG TABLET PO SCH (08:42)
[2017-05-29] MEDS: AMIODARONE 200 MG TABLET PO SCH (08:42)
[2017-05-29] MEDS: CARVEDILOL 12.5 MG TABLET PO SCH (08:42)
[2017-05-29] MEDS: DULOXETINE 30 MG CAPSULE PO SCH (08:43)
[2017-05-29] MEDS: FOLIC ACID PO SCH (11:20)
[2017-05-29] MEDS: VIT B COMP PO SCH (11:20)
[2017-05-29] MEDS: [UNRECOGNIZED DRUG - OTHER] PO SCH (11:20)
[2017-05-29] MEDS: 1/2 NS 1,000 ML IV SCH ×2 (11:26)
--- NOTE | 2017-05-29 11:43 | Progress Note ---
- Date 05/29/17 Subjective: F/U: delirium with behaviors, acute kidney injury, urinary retention, dehydration, orthostatic hypotension. Mr. Tavares is seen while sitting up in his recliner, watching TV. He is alert and orientated x 3 today and reports that he is feeling good. He states that he slept well last night except for the noise from the "alliance party" last night. He is unable to elaborate or identify where the alliance party was and it is unclear if he was hearing noise from staff or having additional hallucinations. He denies any chest pain, shortness of breath, abdominal pain, nausea, vomiting or diarrhea. His appetite is stable and bowels are moving. Repeat labs were relatively unremarkable with the exception of persistent stable anemia (Hgb 9.5). He continues to demonstrate some orthostasis, though he states it is improving (BP 141/79, HR 69 supine; BP 120/71, HR 78 sitting; BP 125/75, HR 82 standing). He was seen and evaluated by Dr. Jackson, psych, who determined that he does not have the capacity to make his own medical decisions and agreed to his becoming his DPOA. Dr. Jackson is also working with the family to determine if antidepressant may be appropriate. Objective Vital signs: Temperature 96.8 F 05/29/17 11:17 Pulse Rate 57 L 05/29/17 11:17 Respiratory Rate 16 05/29/17 11:17 Blood Pressure 128/79 05/29/17 11:17 Pulse Oximetry 97 05/29/17 07:24 Rhythm: First Degree AV-Block Height/Weight/BMI: Weight 197 lb 15.602 oz Comments: Patient sitting up in recliner, watching TV. - Constitutional Present: no acute distress, well nourished, well developed, cooperative - Routine HEENT Exam Head: Present: normocephalic, atraumatic Eye: Present: PERRL. Absent: conjunctival icterus ENT: Present: mucous membranes moist, oropharynx clear - Routine Respiratory Exam Present: CTA bilaterally. Absent: respiratory distress, rhonchi, wheezes - Routine Cardiovascular Exam Present: RRR, S1, S2 - Routine Abdominal Exam Present: soft, normoactive bowel sounds, non tender - Routine Extremities Exam Present: edema, full ROM, pulses intact - Routine Back/Spine/Pelvis Exam Back/Spine: Present: full ROM. Absent: vertebral tenderness - Routine Musculoskeletal Exam Musculoskeletal: Present: moving extremities well - Routine Skin Exam Present: intact, dry, warm Comments: Afebrile. - Routine Neurological Exam Present: alert, oriented X3, CN II-XII intact, moving all extremities, hearing grossly intact, normal speech - Routine Lymphatic Exam Lymphatic: Absent: lymphedema - Routine Psychiatric Exam Present: normal affect, cooperative Results - Labs CBC & Chem 7: 05/29/17 04:03 05/29/17 04:03 Assessment and Plan (1) Acute kidney injury Current visit: Yes Status: Resolved Assessment and Plan: Impression Acute kidney injury (baseline 1.6) - Resolved 05/29/17. Dehydration - resolved. Acute urinary retention. Hypernatremia-present on admission, 148 - resolved. Orthostatic hypotension, improving. Hypothyroidism DM Hypertension Hyperlipidemia CKD BPH with urinary frequency Coronary artery disease Anxiety, depression History of anemia. History of suicide attempt Plan - 05/29/17: Continue medical care plan. SCr at baseline (1.5). Will continue to monitor closely. reports history of BPH with chronic urinary frequency. Will initiate Flomax QHS for probable BPH in conjunction with bladder retraining and goal of discontinuation of Kline catheter over the next 24-48 hours. Oral intake stable. Will discontinue IV fluids. Monitor electrolytes and renal function closely. Blood pressure improved with restarting of amiodarone 200mg daily as well as carvedilol 12.5mg WB. Continue to monitor closely. Due to low blood sugars in AM, Levemir was decreased from 6.5 to 5 units QHS on 05/28/17. Blood sugar this AM was 127. Continue to monitor closely. Dr. Jackson (psychiatric) evaluated patient on 05/28/17 and determined he was unable to make his decisions. Patient elected for to be his DPOA. SCDs to bilateral lower extremity for DVT prophylaxis. Encourage participation in therapies. Recheck labs in AM to monitor blood counts, electrolytes and renal function. Will recheck CPK to monitor for down trending. DVT Prophylaxis: SCD's Resuscitation Status: Do Not Resuscitate - Time spent with patient Time with patient PN: 25 minutes - Physician Narrative Physician: Ava Rincon MD Narrative: Date: 05/29/17 Time: 1350 I have independently evaluated and examined this patient. I reviewed the chart, the patient's history, and the STUDIO ARTIST/PA's documented findings as above. We discussed and formulated the assessment and plan as above with additions as below: Mr. Tavares denied concerns today other than those related to "the racket with the alliance party last night" and reports it sounds as though staff was "indulging in alcohol". He thinks he slept about 4 hours and denies pain. His was not present at the time of my assessment. The patient seems sharper today and is answering questions with less latency, he is oriented to 2018 but could not identify the month or date; he told me he wants his to be his alternate decision maker today without any hesitancy today. Respirations nonlabored, good airflow, breath sounds clear Abdomen benign When asked name of facility he identified [facility] and then immediately told me his date of . Slow improvement; we will discontinue Kline catheter tomorrow morning after second dose Flomax tonight. Will require follow-up if unable to void. Will reevaluate later today when is present. Hospital Course Summary Disclaimer: The visit summary below is not to be considered part of the above Progress Note. Hospital Course: Impression Acute kidney injury-creatinine 2.4 (baseline 1.6) Dehydration Acute urinary retention Hypernatremia-present on admission, 148 Orthostatic hypotension Hypothyroidism DM Hypertension Hyperlipidemia CKD Coronary artery disease Anxiety, depression History of anemia. History of suicide attempt Plan-05/26/17 Admit outpatient observation under the care of Dr. Patel for dehydration and acute kidney injury with urinary retention. He was given 1 liter of normal saline while in the emergency room. Will switch to half-normal saline at 100 ML per hour for gentle hydration Will monitor Accu-Cheks and continue on Levemir 6.5 units at HS Kline catheter was placed. Given urinary retention over 300 ML. Will monitor urinary output. Given orthostatic hypotension, Will place home amiodarone and Coreg on hold. Will likely need to resume this once patient is better hydrated. Monitor blood pressures carefully and obtain orthostatics twice a day Follow routine electrolytes and renal function given acute kidney injury with hypernatremia Given findings of hypothyroidism. Will start patient on levothyroxine 125 mcg daily. Obtain Free T3 and T4. This will need to be followed in the outpatient setting with primary care SCDs to bilateral lower extremity for DVT prophylaxis Code status - DNR as per . She would like to speak to someone regarding DPOA paperwork. Will discuss further orders and plan of care with attending, Dr. Patel At time of discharge medical care will return to primary care provider, Dr Whyte Plan - 05/27/17: Scr trending down (1.9) - baseline 1.6. Continue to monitor closely. Renal sonogram results pending. CPK elevated (CPK 319). Urine creatine 189.5 and urine sodium elevated at 92. Continue 1/2NS at 100cc/hr for hydration. Monitor closely for signs of fluid overload. A1c 6.1. Continue Levemir 6.5 units QHS and monitor blood sugars closely. Sliding scale insulin - low - available as needed. Monitor urinary output closely - Kline catheter in place. Left facial droop with tongue deviation and left sided weakness noted on exam. Unknown if new findings. CT head pending. Orthostatic hypotension improved. Will continue to hold home amiodarone and coreg given concern for possible CVA and desire for passive hypertension until known as well as elevated renal function. Anticipate resuming home amiodarone and coreg once renal function improved and CT head results known incase need for passive hypertension. Monitor closely on telemetry. Continue to monitor blood pressures carefully and obtain orthostatics twice a day. Hypernatremia resolved. Continue to monitor electrolytes closely. SCDs to bilateral lower extremity for DVT prophylaxis. Case management to work with patient and family on obtaining DPOA for . Zyprexa 5mg QHS initiated on 05/24/17 in ED due to increased behaviors secondary to dementia. Dose decreased to 2.5mg QHS due to increased prolonged sedation. Given urinary retention and behavioral changes, will hold for time being. Dr. Jackson consulted. Severe hypothyroidism-discussed with endocrinology. Start Synthroid 25 g by mouth daily. Can increase by 25 g every couple of months as long as the patient is tolerating it. Free T3 and T4 pending. This will need to be followed in the outpatient setting with primary care. B-12 and folate levels pending regarding macrocytic anemia. Speech therapy has been consulted for dysphagia evaluation - awaiting evaluation. Encourage participation in therapies. Patient has reported AMY history but does not tolerate home CPAP. Overnight oximetry reveals he was stable on room air all night. Recheck labs in AM to monitor blood counts, electrolytes and renal function. Will recheck CPK to monitor for down trending. Plan - 05/28/17: Scr trending down (1.7) - baseline 1.6. Continue to monitor closely. Renal sonogram revealed echogenic renal parenchyma suggesting medical renal disease and right sided nonobstructing urinary calculi with small simple appearing renal cortical cyst. Bumex 1mg IV x 1 dose given 05/27/17 with significant improvement in urinary output. Continue to maintain Kline catheter and monitor urinary output closely. CPK trending down. Oral intake improving. Will decrease 1/2NS to 75cc/hr for continued gentle hydration. Monitor closely for signs of fluid overload. Blood pressure significantly elevated this AM (209/101). Will restart home amiodarone 200mg daily as well as carvedilol 12.5mg WB. Continue to monitor blood pressure closely. Continue to monitor closely on telemetry. Blood sugars stable. Continue Levemir 6.5 units QHS and monitor blood sugars closely. Sliding scale insulin - low - available as needed. Strength improved today and patient more alert. CT head showed mild cortical atrophy and ventricular and subcortical white matter disease without evidence of acute cortical infarct, intracranial hemorrhage or mass. Electrolytes stable. Continue to monitor closely. Dr. Jackson (psychiatric) consulted - awaiting evaluation. B12 stable at 675. Folate low-normal at 12.3. Will start daily multivitamin with folate. SCDs to bilateral lower extremity for DVT prophylaxis. Case management to work with patient and family on obtaining DPOA for . Encourage participation in therapies. Recheck labs in AM to monitor blood counts, electrolytes and renal function. Will recheck CPK to monitor for down trending. Plan - 05/29/17: Continue medical care plan. SCr at baseline (1.5). Will continue to monitor closely. reports history of BPH with chronic urinary frequency. Will initiate Flomax QHS for probable BPH in conjunction with bladder retraining and goal of discontinuation of Kline catheter over the next 24-48 hours. Oral intake stable. Will discontinue IV fluids. Monitor electrolytes and renal function closely. Blood pressure improved with restarting of amiodarone 200mg daily as well as carvedilol 12.5mg WB. Continue to monitor closely. Due to low blood sugars in AM, Levemir was decreased from 6.5 to 5 units QHS on 05/28/17. Blood sugar this AM was 127. Continue to monitor closely. Dr. Jackson (psychiatric) evaluated patient on 05/28/17 and determined he was unable to make his decisions. Patient elected for to be his DPOA. SCDs to bilateral lower extremity for DVT prophylaxis. Encourage participation in therapies. Recheck labs in AM to monitor blood counts, electrolytes and renal function. Will recheck CPK to monitor for down trending.
--- NOTE | 2017-05-29 15:14 | Progress Note ---
Progress Note: Attempted to contact today to discuss possible change in antidepressant though I suspect many symptoms of what appears to be depression are actually due to significant executive dysfunction. Voicemail left; will continue attempts to reach her.
[2017-05-29] MEDS ORDERED: FALL RISK - PHARMACY CONSULT MC ONE (15:22)
[2017-05-29] MEDS: INSULIN ASPART 100unit/ml INJECTION SQ PRN (20:55)
[2017-05-29] MEDS: TAMSULOSIN 0.4 MG CAPSULE PO SCH (20:56)
[2017-05-29] MEDS: INSULIN DETEMIR 100unit/ml INJECTION SQ SCH (20:56)
[2017-05-30] MEDS: OMEPRAZOLE 20 MG CAPSULE PO SCH ×2 (05:31→22:08)
[2017-05-30] MEDS: LEVOTHYROXINE 25 MCG TABLET PO SCH (05:32)
[2017-05-30] MEDS: FOLIC ACID PO SCH (10:15)
[2017-05-30] MEDS: VIT B COMP PO SCH (10:15)
[2017-05-30] MEDS: [UNRECOGNIZED DRUG - OTHER] PO SCH (10:15)
[2017-05-30] MEDS: DULOXETINE 30 MG CAPSULE PO SCH (10:15)
[2017-05-30] MEDS: CARVEDILOL 12.5 MG TABLET PO SCH (10:16)
[2017-05-30] MEDS: AMIODARONE 200 MG TABLET PO SCH (10:16)
[2017-05-30] MEDS: INSULIN ASPART 100unit/ml INJECTION SQ PRN ×3 (10:57→23:27)
--- NOTE | 2017-05-30 16:35 | Neuropsych Progress Note ---
[facility] Subjective Date: 05/30/17 - Sujective/Severity of Illness Medications: Hydrocodone Bitart/Acetaminophen (Nelson 7.5/325) 1 tab PO Q4H PRN PRN Reason: Pain Amiodarone HCl (Pacerone) 200 mg PO DAILY [facility] Last Admin: 05/30/17 10:16 Dose: 200 mg Aspirin (Ecotrin) 81 mg PO Q2D [facility] Last Admin: 05/29/17 08:42 Dose: 81 mg Carvedilol (Coreg) 12.5 mg PO WB [facility] Last Admin: 05/30/17 10:16 Dose: 12.5 mg Duloxetine HCl (Cymbalta) 120 mg PO DAILY [facility] Last Admin: 05/30/17 10:15 Dose: 120 mg Ferrous Gluconate (Fergon) 324 mg PO Q2D PRN PRN Reason: AT HOME Insulin Aspart (Novolog) 1 - 5 unit SQ SS PRN; Protocol PRN Reason: Hyperglycemia Last Admin: 05/30/17 14:34 Dose: 1 unit Insulin Detemir (Levemir) 5 unit SQ HS [facility] Last Admin: 05/29/17 20:56 Dose: 5 unit Levothyroxine Sodium (Synthroid) 25 mcg PO ACB [facility] Last Admin: 05/30/17 05:32 Dose: 25 mcg Olanzapine (Zyprexa) 2.5 mg PO HS [facility] Last Admin: 05/26/17 20:48 Dose: 2.5 mg Omeprazole (Prilosec) 40 mg PO BID/E [facility] Last Admin: 05/30/17 05:31 Dose: 40 mg Sodium Chloride (Iv Flush) 10 - 80 ml IVF PRN PRN PRN Reason: Flushing Last Admin: 05/26/17 13:59 Dose: 10 ml Tamsulosin HCl (Flomax) 0.4 mg PO HS [facility] Last Admin: 05/29/17 20:56 Dose: 0.4 mg Vitamin B Complex/Folic Acid (Nephrocaps) 1 cap PO DAILY [facility] Last Admin: 05/30/17 10:15 Dose: 1 cap Subjective: Patient seen and chart reviewed. Patient observed to have brighter affect today and less thought delay than previous. He reports intermittent VH such as "a little girl laying at the end of bed" but cannot give an accurate timeline as to when these started. Feels they are resolving/decreasing overall, which leads me to further believe he has had some delirium. No stiffness/cogwheeling appreciated on physical exam. Denies feeling depressed today, SI, HI, AH. Again attempted to contact patient's re: antidepressant and was unable to reach her today. Start Time: 12:00 Stop Time: 12:20 Mental Status Exam Vitals: Last Vital Signs Temp 98.2 F 05/30/17 08:04 Pulse 89 05/30/17 08:08 Resp 16 05/30/17 08:04 BP 104/69 05/30/17 08:08 Pulse Ox 98 05/30/17 08:04 Height: 1.83 m Weight: 89.5 kg - Mental Status Exam Muscle Strength/Tone: Normal Dressing: Casual Grooming: Fair Attitude: Cooperative Motor Activity: Retardation (improved from previous) Eye Contact: Good Speech: Slowed Volume: Normal Rhythm: Appropriate Rhythm Orientation: Disoriented to time, Oriented to place Mood: Neutral Affect: Relaxed Rate of Thoughts: Delayed (improved from previous) Thought Organization: Superior, Confused Associations: Intact Abstract Reasoning: Poor abstract reasoning Computation: Poor Computation Thought Content: Somatic Concerns Perception/Psychotic: Psychotic Current Hallucinations: Visual (decreasing per patient report today) Language: Naming Impaired Fund of Knowledge: Poor fund of knowledge Memory: Poor-recent Suicidal Ideation: Denies Homicidal Ideation: Denies Insight: Limited Judgement: Limited Impulse Control: Good - Laboratory Result Diagrams: 05/30/17 04:39 05/30/17 04:39 Laboratory Results - last 24 hr 05/29/17 05/30/17 05/30/17 20:51 04:39 04:39 WBC 8.4 RBC 2.98 L Hgb 9.8 L Hct 31.6 L MCV 106.0 H MCH 32.9 MCHC 31.0 RDW Std Deviation 63.0 H Plt Count 159 MPV 13.6 H Immature Gran % (Auto) 0.2 Neut % (Auto) 72.4 H Lymph % (Auto) 18.3 L Blanco % (Auto) 5.5 Eos % (Auto) 3.2 Baso % (Auto) 0.4 Neut # (Auto) 6.1 Lymph # (Auto) 1.5 Blanco # (Auto) 0.5 Eos # (Auto) 0.3 Baso # (Auto) 0.0 Abs Immat Gran (auto) 0.02 Turbidity < 20 Sodium 142 Potassium 3.8 Chloride 105 Carbon Dioxide 28 Anion Gap 9 BUN 17.0 Creatinine 1.4 GFR Calculation 49 BUN/Creatinine Ratio 12 Glucose 101 Glucometer 159 Calculated Osmolality 275 Calcium 8.8 Icterus Index < 2 Specimen Hemolysis < 15 05/30/17 05/30/17 05:34 10:16 WBC RBC Hgb Hct MCV MCH MCHC RDW Std Deviation Plt Count MPV Immature Gran % (Auto) Neut % (Auto) Lymph % (Auto) Blanco % (Auto) Eos % (Auto) Baso % (Auto) Neut # (Auto) Lymph # (Auto) Blanco # (Auto) Eos # (Auto) Baso # (Auto) Abs Immat Gran (auto) Turbidity Sodium Potassium Chloride Carbon Dioxide Anion Gap BUN Creatinine GFR Calculation BUN/Creatinine Ratio Glucose Glucometer 100 153 Calculated Osmolality Calcium Icterus Index Specimen Hemolysis Assessment and Plan (1) Major neurocognitive disorder Problem details: Moderate, vascular etiology Delirium (resolved) History of depression Current visit: Yes Status: Acute Continue current care as patient likely had some component of delirium though obviously has underlying MCND. Medical decisions should still be deferred to /DPOA. Affect brighter today. Will continue attempts to communicate with re: antidepressant though I suspect patient's symptoms are better controlled than previously thought. Hospital Course Summary Disclaimer: The visit summary below is not to be considered part of the above Progress Note. Hospital Course: Impression Acute kidney injury-creatinine 2.4 (baseline 1.6) Dehydration Acute urinary retention Hypernatremia-present on admission, 148 Orthostatic hypotension Hypothyroidism DM Hypertension Hyperlipidemia CKD Coronary artery disease Anxiety, depression History of anemia. History of suicide attempt Plan-05/26/17 Admit outpatient observation under the care of Dr. Patel for dehydration and acute kidney injury with urinary retention. He was given 1 liter of normal saline while in the emergency room. Will switch to half-normal saline at 100 ML per hour for gentle hydration Will monitor Accu-Cheks and continue on Levemir 6.5 units at HS Kline catheter was placed. Given urinary retention over 300 ML. Will monitor urinary output. Given orthostatic hypotension, Will place home amiodarone and Coreg on hold. Will likely need to resume this once patient is better hydrated. Monitor blood pressures carefully and obtain orthostatics twice a day Follow routine electrolytes and renal function given acute kidney injury with hypernatremia Given findings of hypothyroidism. Will start patient on levothyroxine 125 mcg daily. Obtain Free T3 and T4. This will need to be followed in the outpatient setting with primary care SCDs to bilateral lower extremity for DVT prophylaxis Code status - DNR as per . She would like to speak to someone regarding DPOA paperwork. Will discuss further orders and plan of care with attending, Dr. Patel At time of discharge medical care will return to primary care provider, Dr Whyte Plan - 05/27/17: Scr trending down (1.9) - baseline 1.6. Continue to monitor closely. Renal sonogram results pending. CPK elevated (CPK 319). Urine creatine 189.5 and urine sodium elevated at 92. Continue 1/2NS at 100cc/hr for hydration. Monitor closely for signs of fluid overload. A1c 6.1. Continue Levemir 6.5 units QHS and monitor blood sugars closely. Sliding scale insulin - low - available as needed. Monitor urinary output closely - Kline catheter in place. Left facial droop with tongue deviation and left sided weakness noted on exam. Unknown if new findings. CT head pending. Orthostatic hypotension improved. Will continue to hold home amiodarone and coreg given concern for possible CVA and desire for passive hypertension until known as well as elevated renal function. Anticipate resuming home amiodarone and coreg once renal function improved and CT head results known incase need for passive hypertension. Monitor closely on telemetry. Continue to monitor blood pressures carefully and obtain orthostatics twice a day. Hypernatremia resolved. Continue to monitor electrolytes closely. SCDs to bilateral lower extremity for DVT prophylaxis. Case management to work with patient and family on obtaining DPOA for . Zyprexa 5mg QHS initiated on 05/24/17 in ED due to increased behaviors secondary to dementia. Dose decreased to 2.5mg QHS due to increased prolonged sedation. Given urinary retention and behavioral changes, will hold for time being. Dr. Jackson consulted. Severe hypothyroidism-discussed with endocrinology. Start Synthroid 25 g by mouth daily. Can increase by 25 g every couple of months as long as the patient is tolerating it. Free T3 and T4 pending. This will need to be followed in the outpatient setting with primary care. B-12 and folate levels pending regarding macrocytic anemia. Speech therapy has been consulted for dysphagia evaluation - awaiting evaluation. Encourage participation in therapies. Patient has reported AMY history but does not tolerate home CPAP. Overnight oximetry reveals he was stable on room air all night. Recheck labs in AM to monitor blood counts, electrolytes and renal function. Will recheck CPK to monitor for down trending. Plan - 05/28/17: Scr trending down (1.7) - baseline 1.6. Continue to monitor closely. Renal sonogram revealed echogenic renal parenchyma suggesting medical renal disease and right sided nonobstructing urinary calculi with small simple appearing renal cortical cyst. Bumex 1mg IV x 1 dose given 05/27/17 with significant improvement in urinary output. Continue to maintain Kline catheter and monitor urinary output closely. CPK trending down. Oral intake improving. Will decrease 1/2NS to 75cc/hr for continued gentle hydration. Monitor closely for signs of fluid overload. Blood pressure significantly elevated this AM (209/101). Will restart home amiodarone 200mg daily as well as carvedilol 12.5mg WB. Continue to monitor blood pressure closely. Continue to monitor closely on telemetry. Blood sugars stable. Continue Levemir 6.5 units QHS and monitor blood sugars closely. Sliding scale insulin - low - available as needed. Strength improved today and patient more alert. CT head showed mild cortical atrophy and ventricular and subcortical white matter disease without evidence of acute cortical infarct, intracranial hemorrhage or mass. Electrolytes stable. Continue to monitor closely. Dr. Jackson (psychiatric) consulted - awaiting evaluation. B12 stable at 675. Folate low-normal at 12.3. Will start daily multivitamin with folate. SCDs to bilateral lower extremity for DVT prophylaxis. Case management to work with patient and family on obtaining DPOA for . Encourage participation in therapies. Recheck labs in AM to monitor blood counts, electrolytes and renal function. Will recheck CPK to monitor for down trending. Plan - 05/29/17: Continue medical care plan. SCr at baseline (1.5). Will continue to monitor closely. reports history of BPH with chronic urinary frequency. Will initiate Flomax QHS for probable BPH in conjunction with bladder retraining and goal of discontinuation of Kline catheter over the next 24-48 hours. Oral intake stable. Will discontinue IV fluids. Monitor electrolytes and renal function closely. Blood pressure improved with restarting of amiodarone 200mg daily as well as carvedilol 12.5mg WB. Continue to monitor closely. Due to low blood sugars in AM, Levemir was decreased from 6.5 to 5 units QHS on 05/28/17. Blood sugar this AM was 127. Continue to monitor closely. Dr. Jackson (psychiatric) evaluated patient on 05/28/17 and determined he was unable to make his decisions. Patient elected for to be his DPOA. SCDs to bilateral lower extremity for DVT prophylaxis. Encourage participation in therapies. Recheck labs in AM to monitor blood counts, electrolytes and renal function. Will recheck CPK to monitor for down trending.
--- NOTE | 2017-05-30 17:23 | Progress Note ---
- Date 05/30/17 Subjective: Mr. Tavares was seen this morning and again midafternoon. He denies any concerns other than minor sore throat. He reported no dyspnea, nausea, lightheadedness, or pain. He reports that he slept okay and that there was no partying last night. When seen this morning he reported he had been ambulating to and from the bathroom without difficulty but had not yet walked in the [place]. Therapy notes later in the day indicated patient described feeling a little weak with they worked with him and described being a little dizzy and lightheaded with ambulation but that he was able to ambulate with a walker. Objective Vital signs: Temperature 98.2 F 05/30/17 08:04 Pulse Rate 89 05/30/17 08:08 Respiratory Rate 16 05/30/17 08:04 Blood Pressure 104/69 05/30/17 08:08 Pulse Oximetry 98 05/30/17 08:04 NAD, alert Conjunctiva clear, oropharynx clear-no indication of thrush or erythema Respirations nonlabored, decreased airflow but breath sounds are clear Regular rhythm, S1-S2 Abdomen soft, nontender, bowel sounds present Extremities without edema Mini-Mental Status exam repeated today will score 02/15-slightly improved from initial testing 2 days ago Rhythm: Normal Sinus Rhythm Height/Weight/BMI: Weight 89.5 kg Results - Labs CBC & Chem 7: 05/30/17 04:39 05/30/17 04:39 Labs: Blood sugars 100-159 over the past 24 hours Assessment and Plan (1) Acute kidney injury Current visit: Yes Status: Resolved Assessment and Plan: Impression Acute kidney injury (baseline 1.6) - Resolved 05/29/17. Dehydration - resolved. Acute urinary retention. Hypernatremia-present on admission, 148 - resolved. Orthostatic hypotension, improving. Hypothyroidism DM Hypertension Hyperlipidemia CKD BPH with urinary frequency Coronary artery disease Anxiety, depression History of anemia. History of suicide attempt Plan Doing well overall; no problems described overnight by staff and patient not reporting active hallucinations today. Renal function has normalized; Kline catheter discontinued this morning and patient has been able to void at least 200 mL since that time. Monitoring bladder scans to exclude development of urinary retention. Continue Flomax to minimize urinary retention. Blood sugars stable after Levemir decreased to 5 units at bedtime, blood pressure slightly lower today while standing-continue to monitor. Manuel (psychiatric) evaluated patient on 05/28/17 and determined he was unable to make his decisions. interested in retirement at discharge; options being evaluated. Continue PT/OT. - Physician Narrative Narrative: Date: 05/30/17 Time: 1720 Hospital Course Summary Disclaimer: The visit summary below is not to be considered part of the above Progress Note. Hospital Course: Impression Acute kidney injury-creatinine 2.4 (baseline 1.6) Dehydration Acute urinary retention Hypernatremia-present on admission, 148 Orthostatic hypotension Hypothyroidism DM Hypertension Hyperlipidemia CKD Coronary artery disease Anxiety, depression History of anemia. History of suicide attempt 05/26/17 Admit outpatient observation under the care of Dr. Patel for dehydration and acute kidney injury with urinary retention. He was given 1 liter of normal saline while in the emergency room. Will switch to half-normal saline at 100 ML per hour for gentle hydration Will monitor Accu-Cheks and continue on Levemir 6.5 units at HS Kline catheter was placed. Given urinary retention over 300 ML. Will monitor urinary output. Given orthostatic hypotension, Will place home amiodarone and Coreg on hold. Will likely need to resume this once patient is better hydrated. Monitor blood pressures carefully and obtain orthostatics twice a day Follow routine electrolytes and renal function given acute kidney injury with hypernatremia Given findings of hypothyroidism. Will start patient on levothyroxine 125 mcg daily. Obtain Free T3 and T4. This will need to be followed in the outpatient setting with primary care SCDs to bilateral lower extremity for DVT prophylaxis Code status - DNR as per . She would like to speak to someone regarding DPOA paperwork. Will discuss further orders and plan of care with attending, Dr. Patel At time of discharge medical care will return to primary care provider, Dr Whyte 05/27/17: Scr trending down (1.9) - baseline 1.6. Continue to monitor closely. Renal sonogram results pending. CPK elevated (CPK 319). Urine creatine 189.5 and urine sodium elevated at 92. Continue 1/2NS at 100cc/hr for hydration. Monitor closely for signs of fluid overload. A1c 6.1. Continue Levemir 6.5 units QHS and monitor blood sugars closely. Sliding scale insulin - low - available as needed. Monitor urinary output closely - Kline catheter in place. Left facial droop with tongue deviation and left sided weakness noted on exam. Unknown if new findings. CT head pending. Orthostatic hypotension improved. Will continue to hold home amiodarone and coreg given concern for possible CVA and desire for passive hypertension until known as well as elevated renal function. Anticipate resuming home amiodarone and coreg once renal function improved and CT head results known incase need for passive hypertension. Monitor closely on telemetry. Continue to monitor blood pressures carefully and obtain orthostatics twice a day. Hypernatremia resolved. Continue to monitor electrolytes closely. SCDs to bilateral lower extremity for DVT prophylaxis. Case management to work with patient and family on obtaining DPOA for . Zyprexa 5mg QHS initiated on 05/24/17 in ED due to increased behaviors secondary to dementia. Dose decreased to 2.5mg QHS due to increased prolonged sedation. Given urinary retention and behavioral changes, will hold for time being. Dr. Jackson consulted. Severe hypothyroidism-discussed with endocrinology. Start Synthroid 25 g by mouth daily. Can increase by 25 g every couple of months as long as the patient is tolerating it. Free T3 and T4 pending. This will need to be followed in the outpatient setting with primary care. B-12 and folate levels pending regarding macrocytic anemia. Speech therapy has been consulted for dysphagia evaluation - awaiting evaluation. Encourage participation in therapies. Patient has reported AMY history but does not tolerate home CPAP. Overnight oximetry reveals he was stable on room air all night. Recheck labs in AM to monitor blood counts, electrolytes and renal function. Will recheck CPK to monitor for down trending. 05/28/17: Scr trending down (1.7) - baseline 1.6. Continue to monitor closely. Renal sonogram revealed echogenic renal parenchyma suggesting medical renal disease and right sided nonobstructing urinary calculi with small simple appearing renal cortical cyst. Bumex 1mg IV x 1 dose given 05/27/17 with significant improvement in urinary output. Continue to maintain Kline catheter and monitor urinary output closely. CPK trending down. Oral intake improving. Will decrease 1/2NS to 75cc/hr for continued gentle hydration. Monitor closely for signs of fluid overload. Blood pressure significantly elevated this AM (209/101). Will restart home amiodarone 200mg daily as well as carvedilol 12.5mg WB. Continue to monitor blood pressure closely. Continue to monitor closely on telemetry. Blood sugars stable. Continue Levemir 6.5 units QHS and monitor blood sugars closely. Sliding scale insulin - low - available as needed. Strength improved today and patient more alert. CT head showed mild cortical atrophy and ventricular and subcortical white matter disease without evidence of acute cortical infarct, intracranial hemorrhage or mass. Electrolytes stable. Continue to monitor closely. Dr. Jackson (psychiatric) consulted - awaiting evaluation. B12 stable at 675. Folate low-normal at 12.3. Will start daily multivitamin with folate. MMSE 09/1505/29/17: Continue medical care plan. SCr at baseline (1.5). Will continue to monitor closely. reports history of BPH with chronic urinary frequency. Will initiate Flomax QHS for probable BPH in conjunction with bladder retraining and goal of discontinuation of Kline catheter over the next 24-48 hours. Oral intake stable. Will discontinue IV fluids. Monitor electrolytes and renal function closely. Blood pressure improved with restarting of amiodarone 200mg daily as well as carvedilol 12.5mg WB. Continue to monitor closely. Due to low blood sugars in AM, Levemir was decreased from 6.5 to 5 units QHS on 05/28/17. Blood sugar this AM was 127. Continue to monitor closely. Dr. Jackson (psychiatric) evaluated patient on 05/28/17 and determined he was unable to make his decisions. Patient elected for to be his DPOA. SCDs to bilateral lower extremity for DVT prophylaxis. Encourage participation in therapies. Recheck labs in AM to monitor blood counts, electrolytes and renal function. Will recheck CPK to monitor for down trending. 05/30/17 Doing well overall; no problems described overnight by staff and patient not reporting active hallucinations today. Renal function has normalized; Kline catheter discontinued this morning and patient has been able to void at least 200 mL since that time. Monitoring bladder scans to exclude development of urinary retention. Continue Flomax to minimize urinary retention. Blood sugars stable after Levemir decreased to 5 units at bedtime, blood pressure slightly lower today while standing-continue to monitor. Manuel (psychiatric) evaluated patient on 05/28/17 and determined he was unable to make his decisions. interested in retirement at discharge; options being evaluated. MMSE 02/15 today
[2017-05-30] MEDS: TAMSULOSIN 0.4 MG CAPSULE PO SCH (22:07)
[2017-05-30] MEDS: INSULIN DETEMIR 100unit/ml INJECTION SQ SCH (22:07)
[2017-05-31] MEDS: LEVOTHYROXINE 25 MCG TABLET PO SCH ×2 (05:28→05:46)
[2017-05-31] MEDS: OMEPRAZOLE 20 MG CAPSULE PO SCH ×2 (05:29→20:25)
[2017-05-31] MEDS: AMIODARONE 200 MG TABLET PO SCH (09:11)
[2017-05-31] MEDS: CARVEDILOL 12.5 MG TABLET PO SCH (09:11)
[2017-05-31] MEDS: VIT B COMP PO SCH (09:11)
[2017-05-31] MEDS: FOLIC ACID PO SCH (09:11)
[2017-05-31] MEDS: SALINE FLUSH 10ml SYRINGE IVF PRN (09:11)
[2017-05-31] MEDS: [UNRECOGNIZED DRUG - OTHER] PO SCH (09:11)
[2017-05-31] MEDS: ASPIRIN *EC* 81 MG TABLET PO SCH (09:12)
[2017-05-31] MEDS: DULOXETINE 30 MG CAPSULE PO SCH (09:12)
[2017-05-31] MEDS ORDERED: POLYETHYL GLYCOL 3350 17gm PACKET PO PRN (11:04)
[2017-05-31] MEDS: INSULIN ASPART 100unit/ml INJECTION SQ PRN ×2 (11:32→20:58)
--- NOTE | 2017-05-31 15:42 | Progress Note ---
- Date 05/31/17 Subjective: Mr. Tavares reported no concerns today. He slept well and had walked in the halls when I saw him this morning. He describes some minor nausea that he has not a bowel movement in 3 days which corresponds to nursing records although he subsequently had a small hard stool later today. He denied dyspnea or cough, has had no chest pain or palpitations, and denies dysuria. He denied hallucinations overnight reporting that he slept so well nothing could bother him. Objective Vital signs: Temperature 96.9 F 05/31/17 07:00 Pulse Rate 65 05/31/17 08:00 Respiratory Rate 16 05/31/17 07:00 Blood Pressure 108/68 05/31/17 07:35 Pulse Oximetry 96 05/31/17 07:00 NAD, alert, oriented to [facility], Friday, 2017 Conjunctiva clear, conjugate gaze Respirations nonlabored, good airflow, breath sounds clear Regular rhythm, S1-S2 Abdomen soft, nontender, bowel sounds present No edema bilateral lower extremities, abrasion left elbow MAEW Calm, cooperative Rhythm: Normal Sinus Rhythm Height/Weight/BMI: Weight 88 kg Results - Labs CBC & Chem 7: 05/30/17 04:39 05/30/17 04:39 Labs: Accu-Cheks [id number] today Assessment and Plan (1) Acute kidney injury Current visit: Yes Status: Resolved Assessment and Plan: Impression Acute kidney injury (baseline 1.6) - Resolved 05/29/17. Dehydration - resolved. Acute urinary retention. Hypernatremia-present on admission, 148 - resolved. Orthostatic hypotension, improving. Hypothyroidism-TSH 72.6 05/24/17, fT4 0.43 05/26/17 DM Hypertension Hyperlipidemia CKD BPH with urinary frequency Coronary artery disease Anxiety, depression History of anemia. History of suicide attempt-years ago Plan Medically stable; no problems described overnight by staff and patient not reporting active hallucinations today. Kline catheter discontinued yesterday, bladder scans demonstrate low residuals- consistently under 200 mL and seemed to be decreasing over time. Continue Flomax. Blood sugars stable after Levemir decreased to 5 units at bedtime. Mild asymptomatic orthostatic hypotension. Continue thyroid replacement; bowel regimen initiated for constipation. Patient's delirium has cleared, underlying dementia present. Discussed with Dr. Obregon who will reassess determine if competent to sign DPOA. Anticipate discharge to [facility]dc on Friday if insurance authorization obtained. Continue PT/OT. Discontinue telemetry-strips reviewed this morning, consistently sinus rhythm. - Physician Narrative Narrative: Date: 05/31/17 Time: 1537 Hospital Course Summary Disclaimer: The visit summary below is not to be considered part of the above Progress Note. Hospital Course: Impression Acute kidney injury-creatinine 2.4 (baseline 1.6) Dehydration Acute urinary retention Hypernatremia-present on admission, 148 Orthostatic hypotension Hypothyroidism DM Hypertension Hyperlipidemia CKD Coronary artery disease Anxiety, depression History of anemia. History of suicide attempt Plan-05/26/17 Admit outpatient observation under the care of Dr. Patel for dehydration and acute kidney injury with urinary retention. He was given 1 liter of normal saline while in the emergency room. Will switch to half-normal saline at 100 ML per hour for gentle hydration Will monitor Accu-Cheks and continue on Levemir 6.5 units at HS Kline catheter was placed. Given urinary retention over 300 ML. Will monitor urinary output. Given orthostatic hypotension, Will place home amiodarone and Coreg on hold. Will likely need to resume this once patient is better hydrated. Monitor blood pressures carefully and obtain orthostatics twice a day Follow routine electrolytes and renal function given acute kidney injury with hypernatremia Given findings of hypothyroidism. Will start patient on levothyroxine 125 mcg daily. Obtain Free T3 and T4. This will need to be followed in the outpatient setting with primary care SCDs to bilateral lower extremity for DVT prophylaxis Code status - DNR as per . She would like to speak to someone regarding DPOA paperwork. Will discuss further orders and plan of care with attending, Dr. Patel At time of discharge medical care will return to primary care provider, Dr Whyte 05/27/17: Scr trending down (1.9) - baseline 1.6. Continue to monitor closely. Renal sonogram results pending. CPK elevated (CPK 319). Urine creatine 189.5 and urine sodium elevated at 92. Continue 1/2NS at 100cc/hr for hydration. Monitor closely for signs of fluid overload. A1c 6.1. Continue Levemir 6.5 units QHS and monitor blood sugars closely. Sliding scale insulin - low - available as needed. Monitor urinary output closely - Kline catheter in place. Left facial droop with tongue deviation and left sided weakness noted on exam. Unknown if new findings. CT head pending. Orthostatic hypotension improved. Will continue to hold home amiodarone and coreg given concern for possible CVA and desire for passive hypertension until known as well as elevated renal function. Anticipate resuming home amiodarone and coreg once renal function improved and CT head results known incase need for passive hypertension. Monitor closely on telemetry. Continue to monitor blood pressures carefully and obtain orthostatics twice a day. Hypernatremia resolved. Continue to monitor electrolytes closely. SCDs to bilateral lower extremity for DVT prophylaxis. Case management to work with patient and family on obtaining DPOA for . Zyprexa 5mg QHS initiated on 05/24/17 in ED due to increased behaviors secondary to dementia. Dose decreased to 2.5mg QHS due to increased prolonged sedation. Given urinary retention and behavioral changes, will hold for time being. Dr. Jackson consulted. Severe hypothyroidism-discussed with endocrinology. Start Synthroid 25 g by mouth daily. Can increase by 25 g every couple of months as long as the patient is tolerating it. Free T3 and T4 pending. This will need to be followed in the outpatient setting with primary care. B-12 and folate levels pending regarding macrocytic anemia. Speech therapy has been consulted for dysphagia evaluation - awaiting evaluation. Encourage participation in therapies. Patient has reported AMY history but does not tolerate home CPAP. Overnight oximetry reveals he was stable on room air all night. Recheck labs in AM to monitor blood counts, electrolytes and renal function. Will recheck CPK to monitor for down trending. 05/28/17: Scr trending down (1.7) - baseline 1.6. Continue to monitor closely. Renal sonogram revealed echogenic renal parenchyma suggesting medical renal disease and right sided nonobstructing urinary calculi with small simple appearing renal cortical cyst. Bumex 1mg IV x 1 dose given 05/27/17 with significant improvement in urinary output. Continue to maintain Kline catheter and monitor urinary output closely. CPK trending down. Oral intake improving. Will decrease 1/2NS to 75cc/hr for continued gentle hydration. Monitor closely for signs of fluid overload. Blood pressure significantly elevated this AM (209/101). Will restart home amiodarone 200mg daily as well as carvedilol 12.5mg WB. Continue to monitor blood pressure closely. Continue to monitor closely on telemetry. Blood sugars stable. Continue Levemir 6.5 units QHS and monitor blood sugars closely. Sliding scale insulin - low - available as needed. Strength improved today and patient more alert. CT head showed mild cortical atrophy and ventricular and subcortical white matter disease without evidence of acute cortical infarct, intracranial hemorrhage or mass. Electrolytes stable. Continue to monitor closely. Dr. Jackson (psychiatric) consulted - awaiting evaluation. B12 stable at 675. Folate low-normal at 12.3. Will start daily multivitamin with folate. MMSE 09/1505/29/17: Continue medical care plan. SCr at baseline (1.5). Will continue to monitor closely. reports history of BPH with chronic urinary frequency. Will initiate Flomax QHS for probable BPH in conjunction with bladder retraining and goal of discontinuation of Kline catheter over the next 24-48 hours. Oral intake stable. Will discontinue IV fluids. Monitor electrolytes and renal function closely. Blood pressure improved with restarting of amiodarone 200mg daily as well as carvedilol 12.5mg WB. Continue to monitor closely. Due to low blood sugars in AM, Levemir was decreased from 6.5 to 5 units QHS on 05/28/17. Blood sugar this AM was 127. Continue to monitor closely. Dr. Jackson (psychiatric) evaluated patient on 05/28/17 and determined he was unable to make his decisions. Patient elected for to be his DPOA. SCDs to bilateral lower extremity for DVT prophylaxis. Encourage participation in therapies. 05/30/17 Doing well overall; no problems described overnight by staff and patient not reporting active hallucinations today. Renal function has normalized; Kline catheter discontinued this morning and patient has been able to void at least 200 mL since that time. Monitoring bladder scans to exclude development of urinary retention. Continue Flomax to minimize urinary retention. Blood sugars stable after Levemir decreased to 5 units at bedtime, blood pressure slightly lower today while standing-continue to monitor. Manuel (psychiatric) evaluated patient on 05/28/17 and determined he was unable to make his decisions. interested in fdc at discharge; options being evaluated. MMSE 02/15 today 05/31/17 Medically stable; no problems described overnight by staff and patient not reporting active hallucinations today. Kline catheter discontinued yesterday, bladder scans demonstrate low residuals- consistently under 200 mL and seemed to be decreasing over time. Continue Flomax. Blood sugars stable after Levemir decreased to 5 units at bedtime. Mild asymptomatic orthostatic hypotension. Patient's delirium has cleared, underlying dementia present. Discussed with Dr. Obregon who will reassess determine if competent to sign DPOA. Continue thyroid replacement. Bowel regimen initiated. Anticipate discharge to [facility]dc on Friday if insurance authorization obtained. Continue PT/OT. Discontinue telemetry-strips reviewed this morning, consistently sinus rhythm.
[2017-05-31] MEDS ORDERED: BISACODYL 10 MG SUPPOSITORY RECTALLY PRN (17:16)
[2017-05-31] MEDS: TAMSULOSIN 0.4 MG CAPSULE PO SCH (20:29)
[2017-05-31] MEDS: SENNA + DOCUSATE TABLET PO SCH (20:30)
[2017-05-31] MEDS: INSULIN DETEMIR 100unit/ml INJECTION SQ SCH (20:34)
[2017-06-01] MEDS: ONDANSETRON 4 MG/2 ML INJECTION IVP PRN ×3 (04:10→16:49)
[2017-06-01] MEDS: OMEPRAZOLE 20 MG CAPSULE PO SCH ×2 (06:06→21:44)
[2017-06-01] MEDS: LEVOTHYROXINE 25 MCG TABLET PO SCH (06:06)
[2017-06-01] MEDS: PHOSPHORUS 250 MG TABLET PO SCH ×4 (10:02→21:44)
[2017-06-01] MEDS: SENNA + DOCUSATE TABLET PO SCH (10:03)
[2017-06-01] MEDS: POLYETHYL GLYCOL 3350 17gm PACKET PO SCH (10:03)
[2017-06-01] MEDS: DULOXETINE 30 MG CAPSULE PO SCH (10:43)
[2017-06-01] MEDS: AMIODARONE 200 MG TABLET PO SCH (10:44)
[2017-06-01] MEDS: CARVEDILOL 12.5 MG TABLET PO SCH (10:44)
[2017-06-01] MEDS: FOLIC ACID PO SCH (10:47)
[2017-06-01] MEDS: VIT B COMP PO SCH (10:47)
[2017-06-01] MEDS: [UNRECOGNIZED DRUG - OTHER] PO SCH (10:47)
--- NOTE | 2017-06-01 12:00 | Neuropsych Progress Note ---
[facility] Subjective Date: 06/01/17 - Sujective/Severity of Illness Medications: Hydrocodone Bitart/Acetaminophen ([place] 7.5/325) 1 tab PO Q4H PRN PRN Reason: Pain Last Admin: 05/30/17 22:07 Dose: 1 tab Amiodarone HCl ([place]) 200 mg PO DAILY [facility] Last Admin: 06/01/17 10:44 Dose: 200 mg Aspirin (Ecotrin) 81 mg PO Q2D [facility] Last Admin: 05/31/17 09:12 Dose: 81 mg Bisacodyl (Dulcolax) 10 mg RECTALLY DAILY PRN PRN Reason: Constipation Last Admin: 05/31/17 17:23 Dose: 10 mg Carvedilol (Coreg) 12.5 mg PO WB [facility] Last Admin: 06/01/17 10:44 Dose: 12.5 mg Duloxetine HCl (Cymbalta) 120 mg PO DAILY [facility] Last Admin: 06/01/17 10:43 Dose: 120 mg Ferrous Gluconate (Fergon) 324 mg PO Q2D PRN PRN Reason: AT HOME Insulin Aspart (Novolog) 1 - 5 unit SQ SS PRN; Protocol PRN Reason: Hyperglycemia Last Admin: 05/31/17 20:58 Dose: 1 unit Insulin Detemir (Levemir) 5 unit SQ HS [facility] Last Admin: 05/31/17 20:34 Dose: 5 unit Levothyroxine Sodium (Synthroid) 25 mcg PO ACB [facility] Last Admin: 06/01/17 06:06 Dose: 25 mcg Magnesium Hydroxide (Mom) 30 ml PO DAILY PRN PRN Reason: Constipation Last Admin: 05/31/17 11:31 Dose: 30 ml Olanzapine (Zyprexa) 2.5 mg PO HS [facility] Last Admin: 05/26/17 20:48 Dose: 2.5 mg Omeprazole (Prilosec) 40 mg PO BID/E [facility] Last Admin: 06/01/17 06:06 Dose: 40 mg Ondansetron HCl (Zofran) 4 mg IVP Q4H PRN PRN Reason: Nausea &/or vomiting Last Admin: 06/01/17 08:06 Dose: 4 mg Polyethylene Glycol (Miralax) 17 gm PO DAILY PRN Polyethylene Glycol (Miralax) 17 gm PO DAILY [facility] Last Admin: 06/01/17 10:03 Dose: Not Given Senna/Docusate Sodium (Senna Plus Tablet) 2 tab PO BID [facility] Last Admin: 06/01/17 10:03 Dose: Not Given Sodium Chloride (Iv Flush) 10 - 80 ml IVF PRN PRN PRN Reason: Flushing Last Admin: 05/31/17 09:11 Dose: 10 ml Sodium Phosphate (K-Phos *Neutral* Tablet) 500 mg PO WMHS [facility] Tamsulosin HCl (Flomax) 0.4 mg PO HS [facility] Last Admin: 05/31/17 20:29 Dose: 0.4 mg Vitamin B Complex/Folic Acid (Nephrocaps) 1 cap PO DAILY [facility] Last Admin: 06/01/17 10:47 Dose: 1 cap Subjective: Patient seen and chart reviewed. Hospitalist requested patient been seen for capacity to sign DPOA paperwork. Pt was seen briefly yesterday and seems a little more confused today. He was slow to respond to some question and was not sure of the year or the month. He reports he has some depression at times and admits he is more confused today. He denies any S/I. Tolerating meds Start Time: 10:45 Stop Time: 11:00 Mental Status Exam Vitals: Last Vital Signs Temp 100.3 F 06/01/17 08:13 Pulse 94 06/01/17 08:23 Resp 17 06/01/17 08:13 BP 101/56 06/01/17 08:23 Pulse Ox 95 06/01/17 08:13 Height: 1.83 m Weight: 88.2 kg - Mental Status Exam Muscle Strength/Tone: Normal Dressing: Casual Grooming: Fair Attitude: Cooperative Motor Activity: Retardation (improved from previous) Eye Contact: Good Speech: Slowed Volume: Normal Rhythm: Appropriate Rhythm Orientation: Disoriented to time, Oriented to person, Oriented to place Mood: Neutral Affect: Sad Rate of Thoughts: Delayed (improved from previous) Thought Organization: [place], Confused Associations: Intact Abstract Reasoning: Poor abstract reasoning Computation: Poor Computation Thought Content: Somatic Concerns Perception/Psychotic: Psychotic Current Hallucinations: Visual (decreasing per patient report today) Language: Naming Impaired Fund of Knowledge: Poor fund of knowledge Memory: Poor-recent Suicidal Ideation: Denies Homicidal Ideation: Denies Insight: Limited Judgement: Limited Impulse Control: Good - Laboratory Result Diagrams: 05/30/17 04:39 06/01/17 04:21 Laboratory Results - last 24 hr 05/31/17 06/01/17 06/01/17 14:34 04:21 06:01 Turbidity < 20 Sodium 142 Potassium 3.9 Chloride 104 Carbon Dioxide 29 Anion Gap 9 BUN 26.0 H D Creatinine 1.4 GFR Calculation 49 BUN/Creatinine Ratio 19 Glucose 111 H Glucometer 100 142 Calculated Osmolality 279 Calcium 8.8 Phosphorus 1.2 L Magnesium 2.3 Icterus Index < 2 Albumin 3.9 Specimen Hemolysis < 15 06/01/17 06/01/17 08:54 10:12 Turbidity Sodium Potassium Chloride Carbon Dioxide Anion Gap BUN Creatinine GFR Calculation BUN/Creatinine Ratio Glucose Glucometer 174 144 Calculated Osmolality Calcium Phosphorus Magnesium Icterus Index Albumin Specimen Hemolysis Assessment and Plan (1) Major neurocognitive disorder Problem details: Moderate, vascular etiology Delirium (resolved) History of depression Current visit: Yes Status: Acute Hospital Course Summary Disclaimer: The visit summary below is not to be considered part of the above Progress Note. Hospital Course: Impression Acute kidney injury-creatinine 2.4 (baseline 1.6) Dehydration Acute urinary retention Hypernatremia-present on admission, 148 Orthostatic hypotension Hypothyroidism DM Hypertension Hyperlipidemia CKD Coronary artery disease Anxiety, depression History of anemia. History of suicide attempt Plan-05/26/17 Admit outpatient observation under the care of Dr. Patel for dehydration and acute kidney injury with urinary retention. He was given 1 liter of normal saline while in the emergency room. Will switch to half-normal saline at 100 ML per hour for gentle hydration Will monitor Accu-Cheks and continue on Levemir 6.5 units at HS Kline catheter was placed. Given urinary retention over 300 ML. Will monitor urinary output. Given orthostatic hypotension, Will place home amiodarone and Coreg on hold. Will likely need to resume this once patient is better hydrated. Monitor blood pressures carefully and obtain orthostatics twice a day Follow routine electrolytes and renal function given acute kidney injury with hypernatremia Given findings of hypothyroidism. Will start patient on levothyroxine 125 mcg daily. Obtain Free T3 and T4. This will need to be followed in the outpatient setting with primary care SCDs to bilateral lower extremity for DVT prophylaxis Code status - DNR as per . She would like to speak to someone regarding DPOA paperwork. Will discuss further orders and plan of care with attending, Dr. Patel At time of discharge medical care will return to primary care provider, Dr Whyte 05/27/17: Scr trending down (1.9) - baseline 1.6. Continue to monitor closely. Renal sonogram results pending. CPK elevated (CPK 319). Urine creatine 189.5 and urine sodium elevated at 92. Continue 1/2NS at 100cc/hr for hydration. Monitor closely for signs of fluid overload. A1c 6.1. Continue Levemir 6.5 units QHS and monitor blood sugars closely. Sliding scale insulin - low - available as needed. Monitor urinary output closely - Kline catheter in place. Left facial droop with tongue deviation and left sided weakness noted on exam. Unknown if new findings. CT head pending. Orthostatic hypotension improved. Will continue to hold home amiodarone and coreg given concern for possible CVA and desire for passive hypertension until known as well as elevated renal function. Anticipate resuming home amiodarone and coreg once renal function improved and CT head results known incase need for passive hypertension. Monitor closely on telemetry. Continue to monitor blood pressures carefully and obtain orthostatics twice a day. Hypernatremia resolved. Continue to monitor electrolytes closely. SCDs to bilateral lower extremity for DVT prophylaxis. Case management to work with patient and family on obtaining DPOA for . Zyprexa 5mg QHS initiated on 05/24/17 in ED due to increased behaviors secondary to dementia. Dose decreased to 2.5mg QHS due to increased prolonged sedation. Given urinary retention and behavioral changes, will hold for time being. Dr. Jackson consulted. Severe hypothyroidism-discussed with endocrinology. Start Synthroid 25 g by mouth daily. Can increase by 25 g every couple of months as long as the patient is tolerating it. Free T3 and T4 pending. This will need to be followed in the outpatient setting with primary care. B-12 and folate levels pending regarding macrocytic anemia. Speech therapy has been consulted for dysphagia evaluation - awaiting evaluation. Encourage participation in therapies. Patient has reported AMY history but does not tolerate home CPAP. Overnight oximetry reveals he was stable on room air all night. Recheck labs in AM to monitor blood counts, electrolytes and renal function. Will recheck CPK to monitor for down trending. 05/28/17: Scr trending down (1.7) - baseline 1.6. Continue to monitor closely. Renal sonogram revealed echogenic renal parenchyma suggesting medical renal disease and right sided nonobstructing urinary calculi with small simple appearing renal cortical cyst. Bumex 1mg IV x 1 dose given 05/27/17 with significant improvement in urinary output. Continue to maintain Kline catheter and monitor urinary output closely. CPK trending down. Oral intake improving. Will decrease 1/2NS to 75cc/hr for continued gentle hydration. Monitor closely for signs of fluid overload. Blood pressure significantly elevated this AM (209/101). Will restart home amiodarone 200mg daily as well as carvedilol 12.5mg WB. Continue to monitor blood pressure closely. Continue to monitor closely on telemetry. Blood sugars stable. Continue Levemir 6.5 units QHS and monitor blood sugars closely. Sliding scale insulin - low - available as needed. Strength improved today and patient more alert. CT head showed mild cortical atrophy and ventricular and subcortical white matter disease without evidence of acute cortical infarct, intracranial hemorrhage or mass. Electrolytes stable. Continue to monitor closely. Dr. Jackson (psychiatric) consulted - awaiting evaluation. B12 stable at 675. Folate low-normal at 12.3. Will start daily multivitamin with folate. MMSE 09/1505/29/17: Continue medical care plan. SCr at baseline (1.5). Will continue to monitor closely. reports history of BPH with chronic urinary frequency. Will initiate Flomax QHS for probable BPH in conjunction with bladder retraining and goal of discontinuation of Kline catheter over the next 24-48 hours. Oral intake stable. Will discontinue IV fluids. Monitor electrolytes and renal function closely. Blood pressure improved with restarting of amiodarone 200mg daily as well as carvedilol 12.5mg WB. Continue to monitor closely. Due to low blood sugars in AM, Levemir was decreased from 6.5 to 5 units QHS on 05/28/17. Blood sugar this AM was 127. Continue to monitor closely. Dr. Jackson (psychiatric) evaluated patient on 05/28/17 and determined he was unable to make his decisions. Patient elected for to be his DPOA. SCDs to bilateral lower extremity for DVT prophylaxis. Encourage participation in therapies. 05/30/17 Doing well overall; no problems described overnight by staff and patient not reporting active hallucinations today. Renal function has normalized; Kline catheter discontinued this morning and patient has been able to void at least 200 mL since that time. Monitoring bladder scans to exclude development of urinary retention. Continue Flomax to minimize urinary retention. Blood sugars stable after Levemir decreased to 5 units at bedtime, blood pressure slightly lower today while standing-continue to monitor. Manuel (psychiatric) evaluated patient on 05/28/17 and determined he was unable to make his decisions. interested in correction at discharge; options being evaluated. MMSE 02/15 today 05/31/17 Medically stable; no problems described overnight by staff and patient not reporting active hallucinations today. Kline catheter discontinued yesterday, bladder scans demonstrate low residuals- consistently under 200 mL and seemed to be decreasing over time. Continue Flomax. Blood sugars stable after Levemir decreased to 5 units at bedtime. Mild asymptomatic orthostatic hypotension. Patient's delirium has cleared, underlying dementia present. Discussed with Dr. Obregon who will reassess determine if competent to sign DPOA. Continue thyroid replacement. Bowel regimen initiated. Anticipate discharge to correction on Friday if insurance authorization obtained. Continue PT/OT. Discontinue telemetry-strips reviewed this morning, consistently sinus rhythm. 06/01/17 Psych- Pt was slightly confused today. Not oriented to time. At this time the pt does not appear to have capacity to make his own decisions. I do believe his confusion will continue to improve as the delirium improves and we can reassess capacity at that time
[2017-06-01] MEDS ORDERED: SENNA + DOCUSATE TABLET PO PRN (13:03)
--- NOTE | 2017-06-01 13:07 | Progress Note ---
- Date 06/01/17 Subjective: Andriy is seen today in follow up. He is very sleepy, confused. RN reports that he has been very tired today- did have some fecal incontinence- she is concerned this is due to him being so fatigued. He is awake during my exam, but seems tired. Smiles, is pleasantly confused. Chart is reviewed for collateral information. Objective Vital signs: Temperature 100.3 F 06/01/17 08:13 Pulse Rate 94 06/01/17 08:23 Respiratory Rate 17 06/01/17 08:13 Blood Pressure 101/56 06/01/17 08:23 Pulse Oximetry 95 06/01/17 08:13 Rhythm: Normal Sinus Rhythm Height/Weight/BMI: Weight 88.2 kg - Constitutional Present: no acute distress, cooperative, somnolent - Routine HEENT Exam Head: Present: normocephalic, atraumatic Eye: Present: EOMI, PERRL - Routine Respiratory Exam Present: CTA bilaterally. Absent: dyspnea, rales, rhonchi, crackles - Routine Cardiovascular Exam Present: RRR, S1, S2 - Routine Abdominal Exam Present: soft, non distended, non tender - Routine Extremities Exam Present: edema (trace LE), pulses intact - Routine Musculoskeletal Exam Musculoskeletal: Present: moving extremities well - Routine Skin Exam Present: intact, dry, warm - Routine Neurological Exam Present: moving all extremities - Routine Psychiatric Exam Present: cooperative. Absent: normal affect, normal thought process Results - Labs CBC & Chem 7: 05/30/17 04:39 06/01/17 04:21 Labs: 05/31/17 06/01/17 06/01/17 14:34 04:21 06:01 Turbidity < 20 Sodium 142 Potassium 3.9 Chloride 104 Carbon Dioxide 29 Anion Gap 9 BUN 26.0 H D Creatinine 1.4 GFR Calculation 49 BUN/Creatinine Ratio 19 Glucose 111 H Glucometer 100 142 Calculated Osmolality 279 Calcium 8.8 Phosphorus 1.2 L Magnesium 2.3 Icterus Index < 2 Albumin 3.9 Specimen Hemolysis < 15 Assessment and Plan (1) Acute kidney injury Current visit: Yes Status: Resolved Assessment and Plan: Impression Acute kidney injury (baseline 1.6) - Resolved 05/29/17. Dehydration - resolved. Acute urinary retention. Hypernatremia-present on admission, 148 - resolved. Orthostatic hypotension, improving. Hypothyroidism-TSH 72.6 05/24/17, fT4 0.43 05/26/17 DM Hypertension Hyperlipidemia CKD BPH with urinary frequency Coronary artery disease Anxiety, depression History of anemia. History of suicide attempt-years ago Plan 06/01/17 Patient is very tired, fatigued. Very low Phos noted. Oral phos was started today- will continue. Will also add IV KPhos due to weakness and fatigue with altered mental status. Mag is ok. Continue replacement of thyroid. Hyponatremia and orthostatics are improved. Continue Flomax for urinary retention. Multiple BM's overnoc. Will change Senna to PRN use. Psychiatry does not feel patient is able to determine DPOA currently. BG is controlled. Repeat labs in am for stability of anemia, electrolytes. DVT Prophylaxis: SCD's GI Prophylaxis: other (ppi) Resuscitation Status: Do Not Resuscitate - Physician Narrative Physician: Ava Rincon MD Narrative: Date: 06/01/17 Time: 1400 I have independently evaluated and examined this patient. I reviewed the chart, the patient's history, and the DOG CONTROL OFFICER/PA's documented findings as above. We discussed and formulated the assessment and plan as above with additions as below: Mr. Tavares complains of not feeling well today. He didn't sleep well due to constipation and ultimately having 2 large bowel movements overnight. Today he has some mild generalized abdominal discomfort with nausea, decreased appetite, nausea, and low-grade fever. He reports he's felt lightheaded all day even always lying down he denies dyspnea or cough and reports he's been urinating without difficulty. Nursing reports post void residual this morning was 24 mL. Temperature 100.3 this morning, skin warm to touch Patient less interactive than he has been, appears uncomfortable Respirations nonlabored, good airflow, breath sounds clear Active bowel sounds, abdomen soft, nontender Dr. Obregon's input appreciated. Patient reported that he felt like he had the flu overnight and had one episode of emesis-there has been a community outbreak of gastroenteritis so this is possible, continue to monitor and treat symptomatically. With low-grade fever will also check chest x-ray. Continue therapies; approaching discharge. Hospital Course Summary Disclaimer: The visit summary below is not to be considered part of the above Progress Note. Hospital Course: Impression Acute kidney injury-creatinine 2.4 (baseline 1.6) Dehydration Acute urinary retention Hypernatremia-present on admission, 148 Orthostatic hypotension Hypothyroidism DM Hypertension Hyperlipidemia CKD Coronary artery disease Anxiety, depression History of anemia. History of suicide attempt Plan-05/26/17 Admit outpatient observation under the care of Dr. Patel for dehydration and acute kidney injury with urinary retention. He was given 1 liter of normal saline while in the emergency room. Will switch to half-normal saline at 100 ML per hour for gentle hydration Will monitor Accu-Cheks and continue on Levemir 6.5 units at HS Kline catheter was placed. Given urinary retention over 300 ML. Will monitor urinary output. Given orthostatic hypotension, Will place home amiodarone and Coreg on hold. Will likely need to resume this once patient is better hydrated. Monitor blood pressures carefully and obtain orthostatics twice a day Follow routine electrolytes and renal function given acute kidney injury with hypernatremia Given findings of hypothyroidism. Will start patient on levothyroxine 25 mcg daily. Obtain Free T3 and T4. This will need to be followed in the outpatient setting with primary care SCDs to bilateral lower extremity for DVT prophylaxis Code status - DNR as per . She would like to speak to someone regarding DPOA paperwork. Will discuss further orders and plan of care with attending, Dr. Patel At time of discharge medical care will return to primary care provider, Dr Whyte 05/27/17: Scr trending down (1.9) - baseline 1.6. Continue to monitor closely. Renal sonogram results pending. CPK elevated (CPK 319). Urine creatine 189.5 and urine sodium elevated at 92. Continue 1/2NS at 100cc/hr for hydration. Monitor closely for signs of fluid overload. A1c 6.1. Continue Levemir 6.5 units QHS and monitor blood sugars closely. Sliding scale insulin - low - available as needed. Monitor urinary output closely - Kline catheter in place. Left facial droop with tongue deviation and left sided weakness noted on exam. Unknown if new findings. CT head pending. Orthostatic hypotension improved. Will continue to hold home amiodarone and coreg given concern for possible CVA and desire for passive hypertension until known as well as elevated renal function. Anticipate resuming home amiodarone and coreg once renal function improved and CT head results known incase need for passive hypertension. Monitor closely on telemetry. Continue to monitor blood pressures carefully and obtain orthostatics twice a day. Hypernatremia resolved. Continue to monitor electrolytes closely. SCDs to bilateral lower extremity for DVT prophylaxis. Case management to work with patient and family on obtaining DPOA for . Zyprexa 5mg QHS initiated on 05/24/17 in ED due to increased behaviors secondary to dementia. Dose decreased to 2.5mg QHS due to increased prolonged sedation. Given urinary retention and behavioral changes, will hold for time being. Dr. Jackson consulted. Severe hypothyroidism-discussed with endocrinology. Start Synthroid 25 g by mouth daily. Can increase by 25 g every couple of months as long as the patient is tolerating it. Free T3 and T4 pending. This will need to be followed in the outpatient setting with primary care. Previously treated with levothyroxine 25 g daily-patient discontinued at some point in the past. B-12 and folate levels pending regarding macrocytic anemia. Speech therapy has been consulted for dysphagia evaluation - awaiting evaluation. Encourage participation in therapies. Patient has reported AMY history but does not tolerate home CPAP. Overnight oximetry reveals he was stable on room air all night. Recheck labs in AM to monitor blood counts, electrolytes and renal function. Will recheck CPK to monitor for down trending. 05/28/17: Scr trending down (1.7) - baseline 1.6. Continue to monitor closely. Renal sonogram revealed echogenic renal parenchyma suggesting medical renal disease and right sided nonobstructing urinary calculi with small simple appearing renal cortical cyst. Bumex 1mg IV x 1 dose given 05/27/17 with significant improvement in urinary output. Continue to maintain Kline catheter and monitor urinary output closely. CPK trending down. Oral intake improving. Will decrease 1/2NS to 75cc/hr for continued gentle hydration. Monitor closely for signs of fluid overload. Blood pressure significantly elevated this AM (209/101). Will restart home amiodarone 200mg daily as well as carvedilol 12.5mg WB. Continue to monitor blood pressure closely. Continue to monitor closely on telemetry. Blood sugars stable. Continue Levemir 6.5 units QHS and monitor blood sugars closely. Sliding scale insulin - low - available as needed. Strength improved today and patient more alert. CT head showed mild cortical atrophy and ventricular and subcortical white matter disease without evidence of acute cortical infarct, intracranial hemorrhage or mass. Electrolytes stable. Continue to monitor closely. Dr. Jackson (psychiatric) consulted - awaiting evaluation. B12 stable at 675. Folate low-normal at 12.3. Will start daily multivitamin with folate. MMSE 09/1505/29/17: Continue medical care plan. SCr at baseline (1.5). Will continue to monitor closely. reports history of BPH with chronic urinary frequency. Will initiate Flomax QHS for probable BPH in conjunction with bladder retraining and goal of discontinuation of Kline catheter over the next 24-48 hours. Oral intake stable. Will discontinue IV fluids. Monitor electrolytes and renal function closely. Blood pressure improved with restarting of amiodarone 200mg daily as well as carvedilol 12.5mg WB. Continue to monitor closely. Due to low blood sugars in AM, Levemir was decreased from 6.5 to 5 units QHS on 05/28/17. Blood sugar this AM was 127. Continue to monitor closely. Dr. Jackson (psychiatric) evaluated patient on 05/28/17 and determined he was unable to make his decisions. Patient elected for to be his DPOA. SCDs to bilateral lower extremity for DVT prophylaxis. Encourage participation in therapies. 05/30/17 Doing well overall; no problems described overnight by staff and patient not reporting active hallucinations today. Renal function has normalized; Kline catheter discontinued this morning and patient has been able to void at least 200 mL since that time. Monitoring bladder scans to exclude development of urinary retention. Continue Flomax to minimize urinary retention. Blood sugars stable after Levemir decreased to 5 units at bedtime, blood pressure slightly lower today while standing-continue to monitor. Manuel (psychiatric) evaluated patient on 05/28/17 and determined he was unable to make his decisions. interested in [facility] at discharge; options being evaluated. MMSE 02/15 today 05/31/17 Medically stable; no problems described overnight by staff and patient not reporting active hallucinations today. Kline catheter discontinued yesterday, bladder scans demonstrate low residuals- consistently under 200 mL and seemed to be decreasing over time. Continue Flomax. Blood sugars stable after Levemir decreased to 5 units at bedtime. Mild asymptomatic orthostatic hypotension. Patient's delirium has cleared, underlying dementia present. Discussed with Dr. Obregon who will reassess determine if competent to sign DPOA. Continue thyroid replacement. Bowel regimen initiated. Anticipate discharge to [facility] on Friday if insurance authorization obtained. Continue PT/OT. Discontinue telemetry-strips reviewed this morning, consistently sinus rhythm. 06/01/17 Psych- Pt was slightly confused today. Not oriented to time. At this time the pt does not appear to have capacity to make his own decisions. I do believe his confusion will continue to improve as the delirium improves and we can reassess capacity at that time 06/01/17 Patient is very tired, fatigued. Low-grade fever present after emesis overnight. Very low Phos noted. Oral phos was started today- will continue. Will also add IV KPhos due to weakness and fatigue with altered mental status. Mag is ok. Continue replacement of thyroid. Hyponatremia and orthostatics are improved. Continue Flomax for urinary retention. Multiple BM's overnoc. Will change Senna to PRN use. Psychiatry does not feel patient is able to determine DPOA currently. Chest x-ray today due to fever. BG is controlled. Repeat labs in am for stability of anemia, electrolytes.
[2017-06-01] MEDS ORDERED: POTASSIUM PHOSPHATE (mMol) 30 MMOL in NS 500ml 500 ML IV SCH (14:00)
[2017-06-01] MEDS ORDERED: METOCLOPRAMIDE 10mg/2ml INJECTION IVP PRN (14:15)
[2017-06-01] MEDS ORDERED: ACETAMINOPHEN 325 MG TABLET PO PRN (14:29)
[2017-06-01] MEDS: INSULIN DETEMIR 100unit/ml INJECTION SQ SCH (21:43)
[2017-06-01] MEDS: TAMSULOSIN 0.4 MG CAPSULE PO SCH (21:44)
[2017-06-02] MEDS: OMEPRAZOLE 20 MG CAPSULE PO SCH ×2 (05:38→20:29)
[2017-06-02] MEDS: LEVOTHYROXINE 25 MCG TABLET PO SCH (05:39)
[2017-06-02] MEDS: PHOSPHORUS 250 MG TABLET PO SCH (09:36)
[2017-06-02] MEDS: ASPIRIN *EC* 81 MG TABLET PO SCH (09:36)
[2017-06-02] MEDS: AMIODARONE 200 MG TABLET PO SCH (09:36)
[2017-06-02] MEDS: FOLIC ACID PO SCH (09:37)
[2017-06-02] MEDS: VIT B COMP PO SCH (09:37)
[2017-06-02] MEDS: [UNRECOGNIZED DRUG - OTHER] PO SCH (09:37)
[2017-06-02] MEDS: DULOXETINE 30 MG CAPSULE PO SCH (09:37)
[2017-06-02] MEDS: CARVEDILOL 12.5 MG TABLET PO SCH (09:40)
[2017-06-02] MEDS: NS 1,000 ML IV SCH ×2 (10:21→23:15)
[2017-06-02] MEDS: POLYETHYL GLYCOL 3350 17gm PACKET PO SCH (10:22)
[2017-06-02] MEDS ORDERED: SALINE 0.65% NASAL SPRAY 44 ML BOTTLE EA NOSTRIL PRN (11:38)
--- NOTE | 2017-06-02 11:42 | Progress Note ---
- Date 06/02/17 Subjective: Mr. Tavares was lying in the dark, resting but stated he was ready to get up for breakfast (he was seen after 0800 this am). He stated that his nose feels stuffed up, but denies coughing or feeling short of breath. He denies feeling weak or dizzy. He denies abdominal pain, nausea, or constipation. He hasn't vomited since yesterday afternoon. Objective Vital signs: Temperature 98.0 F 06/02/17 04:16 Pulse Rate 69 06/02/17 09:18 Respiratory Rate 18 06/02/17 09:18 Blood Pressure 84/49 06/02/17 09:24 Pulse Oximetry 93 06/02/17 09:18 Rhythm: Normal Sinus Rhythm Height/Weight/BMI: Weight 88.6 kg - Constitutional Present: no acute distress, well nourished, well developed - Routine HEENT Exam Head: Present: normocephalic, atraumatic Eye: Present: PERRL. Absent: conjunctival icterus, scleral injection - Routine Respiratory Exam Present: CTA bilaterally - Routine Cardiovascular Exam Present: RRR, S1, S2, murmur - Routine Abdominal Exam Present: soft, non distended, non tender. Absent: normoactive bowel sounds ( hypoactive) - Routine Extremities Exam Present: no edema, pulses intact - Routine Skin Exam Present: intact, dry, warm - Routine Neurological Exam Present: alert, moving all extremities, normal speech - Routine Psychiatric Exam Present: cooperative Results - Labs CBC & Chem 7: 06/02/17 04:38 06/02/17 04:38 Assessment and Plan (1) Acute kidney injury Current visit: Yes Status: Resolved Assessment and Plan: Impression Acute kidney injury (baseline 1.6) - Resolved 05/29/17. Dehydration - resolved. Acute urinary retention. Hypernatremia-present on admission, 148 - resolved. Orthostatic hypotension, improving. Hypothyroidism-TSH 72.6 05/24/17, fT4 0.43 05/26/17 DM Hypertension Hyperlipidemia CKD BPH with urinary frequency Coronary artery disease Anxiety, depression History of anemia. History of suicide attempt-years ago Plan 06/02/17 Very orthostatic this am with blood pressure supine 110/65, sitting 92/58, standing 84/49 (and this was improved compared to earlier vitals). Decrease Coreg from 12.5 mg BID to 6.25 mg BID. Continue IVF. Hgb decreased to 8.7. With orthostasis will check stool for occult blood. T 100.5 yesterday afternoon (1600). CXR from yesterday was reviewed - looks like left-sided effusion. Radiologic report is pending. WBC normal at 8.4. Start nasal saline for congestion & check viral resp panel. Phos corrected to 3.0 - continue oral replacement. ANA resolved. DVT Prophylaxis: SCD's GI Prophylaxis: other Resuscitation Status: Do Not Resuscitate - Physician Narrative Physician: Ava Rincon MD Narrative: Date: 06/02/17 Time: 1834 I have independently evaluated and examined this patient. I reviewed the chart, the patient's history, and the LICENSED MASSAGE PRACTITIONER/PA's documented findings as above. We discussed and formulated the assessment and plan as above with additions as below: Mr. Tavares reports he's had no further emesis but he still nauseated and that nothing tastes good today due to a bad taste in his mouth which is causing him to have no appetite. Reports bad taste has been present for a day or 2. He reported having "a little" lightheadedness this morning. NAD, alert, oriented to [facility], April 2017 Appears much more comfortable than he did yesterday Respirations nonlabored, abdomen soft, nontender, hyperactive bowel sounds. IV fluids-suspect volume depleted after emesis yesterday; tolerating liquids today. Previously was eating well although complained of nausea intermittently. Unclear what source of the "bad taste" is however K-Phos was started yesterday and may be the trigger so will be discontinued. Dr. Jackson feels mental status has cleared enough that he is competent to sign DPOA paperwork which case management will coordinate. Hospital Course Summary Disclaimer: The visit summary below is not to be considered part of the above Progress Note. Hospital Course: Impression Acute kidney injury-creatinine 2.4 (baseline 1.6) Dehydration Acute urinary retention Hypernatremia-present on admission, 148 Orthostatic hypotension Hypothyroidism DM Hypertension Hyperlipidemia CKD Coronary artery disease Anxiety, depression History of anemia. History of suicide attempt Plan-05/26/17 Admit outpatient observation under the care of Dr. Patel for dehydration and acute kidney injury with urinary retention. He was given 1 liter of normal saline while in the emergency room. Will switch to half-normal saline at 100 ML per hour for gentle hydration Will monitor Accu-Cheks and continue on Levemir 6.5 units at HS Kline catheter was placed. Given urinary retention over 300 ML. Will monitor urinary output. Given orthostatic hypotension, Will place home amiodarone and Coreg on hold. Will likely need to resume this once patient is better hydrated. Monitor blood pressures carefully and obtain orthostatics twice a day Follow routine electrolytes and renal function given acute kidney injury with hypernatremia Given findings of hypothyroidism. Will start patient on levothyroxine 25 mcg daily. Obtain Free T3 and T4. This will need to be followed in the outpatient setting with primary care SCDs to bilateral lower extremity for DVT prophylaxis Code status - DNR as per . She would like to speak to someone regarding DPOA paperwork. Will discuss further orders and plan of care with attending, Dr. Patel At time of discharge medical care will return to primary care provider, Dr Whyte 05/27/17: Scr trending down (1.9) - baseline 1.6. Continue to monitor closely. Renal sonogram results pending. CPK elevated (CPK 319). Urine creatine 189.5 and urine sodium elevated at 92. Continue 1/2NS at 100cc/hr for hydration. Monitor closely for signs of fluid overload. A1c 6.1. Continue Levemir 6.5 units QHS and monitor blood sugars closely. Sliding scale insulin - low - available as needed. Monitor urinary output closely - Kline catheter in place. Left facial droop with tongue deviation and left sided weakness noted on exam. Unknown if new findings. CT head pending. Orthostatic hypotension improved. Will continue to hold home amiodarone and coreg given concern for possible CVA and desire for passive hypertension until known as well as elevated renal function. Anticipate resuming home amiodarone and coreg once renal function improved and CT head results known incase need for passive hypertension. Monitor closely on telemetry. Continue to monitor blood pressures carefully and obtain orthostatics twice a day. Hypernatremia resolved. Continue to monitor electrolytes closely. SCDs to bilateral lower extremity for DVT prophylaxis. Case management to work with patient and family on obtaining DPOA for . Zyprexa 5mg QHS initiated on 05/24/17 in ED due to increased behaviors secondary to dementia. Dose decreased to 2.5mg QHS due to increased prolonged sedation. Given urinary retention and behavioral changes, will hold for time being. Dr. Jackson consulted. Severe hypothyroidism-discussed with endocrinology. Start Synthroid 25 g by mouth daily. Can increase by 25 g every couple of months as long as the patient is tolerating it. Free T3 and T4 pending. This will need to be followed in the outpatient setting with primary care. Previously treated with levothyroxine 25 g daily-patient discontinued at some point in the past. B-12 and folate levels pending regarding macrocytic anemia. Speech therapy has been consulted for dysphagia evaluation - awaiting evaluation. Encourage participation in therapies. Patient has reported AMY history but does not tolerate home CPAP. Overnight oximetry reveals he was stable on room air all night. Recheck labs in AM to monitor blood counts, electrolytes and renal function. Will recheck CPK to monitor for down trending. 05/28/17: Scr trending down (1.7) - baseline 1.6. Continue to monitor closely. Renal sonogram revealed echogenic renal parenchyma suggesting medical renal disease and right sided nonobstructing urinary calculi with small simple appearing renal cortical cyst. Bumex 1mg IV x 1 dose given 05/27/17 with significant improvement in urinary output. Continue to maintain Kline catheter and monitor urinary output closely. CPK trending down. Oral intake improving. Will decrease 1/2NS to 75cc/hr for continued gentle hydration. Monitor closely for signs of fluid overload. Blood pressure significantly elevated this AM (209/101). Will restart home amiodarone 200mg daily as well as carvedilol 12.5mg WB. Continue to monitor blood pressure closely. Continue to monitor closely on telemetry. Blood sugars stable. Continue Levemir 6.5 units QHS and monitor blood sugars closely. Sliding scale insulin - low - available as needed. Strength improved today and patient more alert. CT head showed mild cortical atrophy and ventricular and subcortical white matter disease without evidence of acute cortical infarct, intracranial hemorrhage or mass. Electrolytes stable. Continue to monitor closely. Dr. Jackson (psychiatric) consulted - awaiting evaluation. B12 stable at 675. Folate low-normal at 12.3. Will start daily multivitamin with folate. MMSE 09/1505/29/17: Continue medical care plan. SCr at baseline (1.5). Will continue to monitor closely. reports history of BPH with chronic urinary frequency. Will initiate Flomax QHS for probable BPH in conjunction with bladder retraining and goal of discontinuation of Kline catheter over the next 24-48 hours. Oral intake stable. Will discontinue IV fluids. Monitor electrolytes and renal function closely. Blood pressure improved with restarting of amiodarone 200mg daily as well as carvedilol 12.5mg WB. Continue to monitor closely. Due to low blood sugars in AM, Levemir was decreased from 6.5 to 5 units QHS on 05/28/17. Blood sugar this AM was 127. Continue to monitor closely. Dr. Jackson (psychiatric) evaluated patient on 05/28/17 and determined he was unable to make his decisions. Patient elected for to be his DPOA. SCDs to bilateral lower extremity for DVT prophylaxis. Encourage participation in therapies. 05/30/17 Doing well overall; no problems described overnight by staff and patient not reporting active hallucinations today. Renal function has normalized; Kline catheter discontinued this morning and patient has been able to void at least 200 mL since that time. Monitoring bladder scans to exclude development of urinary retention. Continue Flomax to minimize urinary retention. Blood sugars stable after Levemir decreased to 5 units at bedtime, blood pressure slightly lower today while standing-continue to monitor. Manuel (psychiatric) evaluated patient on 05/28/17 and determined he was unable to make his decisions. interested in custodial at discharge; options being evaluated. MMSE 02/15 today 05/31/17 Medically stable; no problems described overnight by staff and patient not reporting active hallucinations today. Kline catheter discontinued yesterday, bladder scans demonstrate low residuals- consistently under 200 mL and seemed to be decreasing over time. Continue Flomax. Blood sugars stable after Levemir decreased to 5 units at bedtime. Mild asymptomatic orthostatic hypotension. Patient's delirium has cleared, underlying dementia present. Discussed with Dr. Obregon who will reassess determine if competent to sign DPOA. Continue thyroid replacement. Bowel regimen initiated. Anticipate discharge to custodial on Friday if insurance authorization obtained. Continue PT/OT. Discontinue telemetry-strips reviewed this morning, consistently sinus rhythm. 06/01/17 Psych- Pt was slightly confused today. Not oriented to time. At this time the pt does not appear to have capacity to make his own decisions. I do believe his confusion will continue to improve as the delirium improves and we can reassess capacity at that time 06/01/17 Patient is very tired, fatigued. Low-grade fever present after emesis overnight. Very low Phos noted. Oral phos was started today- will continue. Will also add IV KPhos due to weakness and fatigue with altered mental status. Mag is ok. Continue replacement of thyroid. Hyponatremia and orthostatics are improved. Continue Flomax for urinary retention. Multiple BM's overnoc. Will change Senna to PRN use. Psychiatry does not feel patient is able to determine DPOA currently. Chest x-ray today due to fever. BG is controlled. Repeat labs in am for stability of anemia, electrolytes. 06/02/17 Very orthostatic this am with blood pressure supine 110/65, sitting 92/58, standing 84/49 (and this was improved compared to earlier vitals). Decrease Coreg from 12.5 mg BID to 6.25 mg BID. Continue IVF. Hgb decreased to 8.7. With orthostasis will check stool for occult blood. T 100.5 yesterday afternoon (1600). CXR from yesterday was reviewed - looks like left-sided effusion. Radiologic report is pending. WBC normal at 8.4. Start nasal saline for congestion & check viral resp panel. Phos corrected to 3.0 - continue oral replacement. ANA resolved.
--- NOTE | 2017-06-02 12:15 | XRay Report ---
Indication: fever, emesis PROCEDURE: XR chest 1V: Encounter: Initial Comparison: May 24, 2017 Findings: Persistent airspace consolidation and scarring in the left lower lobe without significant change. Right lung is stable and grossly clear. No pneumothorax. Heart size and mediastinal contours are stable. Prior CABG. Impression: Stable appearance of the chest without acute cardiopulmonary disease. .
--- NOTE | 2017-06-02 15:54 | Neuropsych Progress Note ---
[facility] Subjective Date: 06/02/17 - Sujective/Severity of Illness Medications: Acetaminophen (Tylenol) 650 mg PO QID PRN PRN Reason: Discomfort Last Admin: 06/01/17 14:37 Dose: 650 mg Hydrocodone Bitart/Acetaminophen ([place]oy 7.5/325) 1 tab PO Q4H PRN PRN Reason: Pain Last Admin: 05/30/17 22:07 Dose: 1 tab Amiodarone HCl (Pacerone) 200 mg PO DAILY [facility] Last Admin: 06/02/17 09:36 Dose: 200 mg Aspirin (Ecotrin) 81 mg PO Q2D [facility] Last Admin: 06/02/17 09:36 Dose: 81 mg Bisacodyl (Dulcolax) 10 mg RECTALLY DAILY PRN PRN Reason: Constipation Last Admin: 05/31/17 17:23 Dose: 10 mg Carvedilol (Coreg) 6.25 mg PO WB [facility] Duloxetine HCl (Cymbalta) 120 mg PO DAILY [facility] Last Admin: 06/02/17 09:37 Dose: 120 mg Ferrous Gluconate (Fergon) 324 mg PO Q2D PRN PRN Reason: AT HOME Sodium Chloride (Normal Saline) 1,000 mls @ 100 mls/hr IV .Q10H [facility] Last Admin: 06/02/17 10:21 Dose: 100 mls/hr Sodium Chloride (Normal Saline) 500 mls @ 999.9 mls/hr IV .Q30M [facility] Insulin Aspart (Novolog) 1 - 5 unit SQ SS PRN; Protocol PRN Reason: Hyperglycemia Last Admin: 05/31/17 20:58 Dose: 1 unit Insulin Detemir (Levemir) 5 unit SQ HS [facility] Last Admin: 06/01/17 21:43 Dose: 5 unit Levothyroxine Sodium (Synthroid) 25 mcg PO ACB [facility] Last Admin: 06/02/17 05:39 Dose: 25 mcg Magnesium Hydroxide (Mom) 30 ml PO DAILY PRN PRN Reason: Constipation Last Admin: 05/31/17 11:31 Dose: 30 ml Metoclopramide HCl (Reglan) 5 mg IVP Q6H PRN Omeprazole (Prilosec) 40 mg PO BID/E [facility] Last Admin: 06/02/17 05:38 Dose: 40 mg Ondansetron HCl (Zofran) 4 mg IVP Q4H PRN PRN Reason: Nausea &/or vomiting Last Admin: 06/01/17 16:49 Dose: 4 mg Polyethylene Glycol (Miralax) 17 gm PO DAILY PRN Polyethylene Glycol (Miralax) 17 gm PO DAILY [facility] Last Admin: 06/02/17 10:22 Dose: Not Given Senna/Docusate Sodium (Senna Plus Tablet) 2 tab PO BID PRN PRN Reason: Constipation Sodium Chloride (Iv Flush) 10 - 80 ml IVF PRN PRN PRN Reason: Flushing Last Admin: 05/31/17 09:11 Dose: 10 ml Sodium Chloride (Deep Sea Nasal Moisturizing [place]) 1 spray EA NOSTRIL PRN PRN PRN Reason: Congestion Sodium Phosphate (K-Phos *Neutral* Tablet) 500 mg PO WMHS [facility] Last Admin: 06/02/17 09:36 Dose: 500 mg Tamsulosin HCl (Flomax) 0.4 mg PO HS [facility] Last Admin: 06/01/17 21:44 Dose: 0.4 mg Vitamin B Complex/Folic Acid (Nephrocaps) 1 cap PO DAILY [facility] Last Admin: 06/02/17 09:37 Dose: 1 cap Subjective: Patient seen and chart reviewed. Patient's family are at bedside visiting and he seems in good spirits today. He has less thought delay than when initially seen and is able to say that he is in the hospital. Patient is able to state that he would like to name his and one of his sons as DPOA and I do feel he has the capacity to make this decision. This is the same answer as he told me upon admission. Discussed delirium vs. suspected underlying dementia with patient and his , and difficulty with executive dysfunction. Recommended repeat cognitive testing (more in depth than SLUMS) once medically stable and delirium has resolved. stated that she understood this recommendation. Agreed to leave antidepressant as it is currently prescribed. Start Time: 14:00 Stop Time: 14:20 Care: >50% of this visit spent in counseling/coordination care. (discussion with patient/ as above) Mental Status Exam Vitals: Last Vital Signs Temp 98.0 F 06/02/17 04:16 Pulse 69 06/02/17 09:18 Resp 18 06/02/17 09:18 BP 84/49 06/02/17 09:24 Pulse Ox 93 06/02/17 09:18 Height: 1.83 m Weight: 88.6 kg - Mental Status Exam Muscle Strength/Tone: Normal Dressing: Casual Grooming: Fair Attitude: Cooperative Motor Activity: Retardation (improved from previous) Eye Contact: Good Speech: Slowed Volume: Normal Rhythm: Appropriate Rhythm Orientation: Disoriented to time, Oriented to person, Oriented to place Mood: Euthymic, Neutral Affect: Relaxed Rate of Thoughts: Delayed (improved from previous) Thought Organization: [place], Confused (intermittent) Associations: Intact Abstract Reasoning: Poor abstract reasoning Thought Content: Normal Perception/Psychotic: Hx psychosis, 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, Psychotic Language: Other (some naming impairment present) Fund of Knowledge: Poor fund of knowledge Memory: Poor-recent Suicidal Ideation: Denies Homicidal Ideation: Denies Insight: Limited Judgement: Limited Impulse Control: Good - Laboratory Result Diagrams: 06/02/17 04:38 06/02/17 04:38 Laboratory Results - last 24 hr 06/01/17 06/01/17 06/02/17 19:24 21:45 04:38 WBC 7.9 RBC 2.58 L Hgb 8.7 L D Hct 28.2 L MCV 109.3 H MCH 33.7 MCHC 30.9 L RDW Std Deviation 67.7 H Plt Count 142 MPV 13.2 H Neutrophils % (Manual) 81.0 H Band Neutrophils % 4.0 Lymphocytes % (Manual) 10.0 L Monocytes % (Manual) 4.0 Eosinophils % (Manual) 1.0 Neutrophils # (Manual) 6.4 Band Neutrophils # 0.3 Lymphocytes # (Manual) 0.8 L Monocytes # (Manual) 0.3 Eosinophils # (Manual) 0.1 Poikilocytosis 2+ Basophilic Stippling 1+ Anisocytosis 1+ Tear Drop Cells 1+ Ovalocytes 1+ Helmet Cells 1+ Live-[place] Bodies 1+ Acanthocytes (Spur) 1+ Schistocytes 1+ RBC Morph Comment Abnormal Turbidity Sodium Potassium Chloride Carbon Dioxide Anion Gap BUN Creatinine GFR Calculation BUN/Creatinine Ratio Glucose Glucometer 149 Calculated Osmolality Calcium Phosphorus Magnesium Icterus Index Albumin Specimen Hemolysis Ur Collection Type Urine, void-cc/notcc Urine Color Yellow Urine Clarity Clear Urine pH 5.5 Ur Specific [place] 1.025 Urine Protein Trace A Urine Glucose (UA) Negative Urine Ketones Negative Urine Occult Blood Negative Urine Nitrate Negative Urine Bilirubin Negative Urine Urobilinogen 0.2 Ur Leukocyte Esterase Negative Urinalysis Comment Microscopic not ind. Stool Occult Blood 06/02/17 06/02/17 06/02/17 04:38 05:38 12:44 WBC RBC Hgb Hct MCV MCH MCHC RDW Std Deviation Plt Count MPV Neutrophils % (Manual) Band Neutrophils % Lymphocytes % (Manual) Monocytes % (Manual) Eosinophils % (Manual) Neutrophils # (Manual) Band Neutrophils # Lymphocytes # (Manual) Monocytes # (Manual) Eosinophils # (Manual) Poikilocytosis Basophilic Stippling Anisocytosis Tear Drop Cells Ovalocytes Helmet Cells Live[place] Bodies Acanthocytes (Spur) Schistocytes RBC Morph Comment Turbidity < 20 Sodium 142 Potassium 4.0 Chloride 104 Carbon Dioxide 29 Anion Gap 9 BUN 26.0 H Creatinine 1.5 GFR Calculation 45 BUN/Creatinine Ratio 17 Glucose 117 H Glucometer 111 Calculated Osmolality 279 Calcium 8.3 L Phosphorus 3.0 Magnesium 2.0 Icterus Index < 2 Albumin 3.5 Specimen Hemolysis < 15 Ur Collection Type Urine Color Urine Clarity Urine pH Ur Specific [place] Urine Protein Urine Glucose (UA) Urine Ketones Urine Occult Blood Urine Nitrate Urine Bilirubin Urine Urobilinogen Ur Leukocyte Esterase Urinalysis Comment Stool Occult Blood Positive A Assessment and Plan (1) Major neurocognitive disorder Problem details: Delirium (improving) Moderate, vascular etiology - suspected; can further clarify once delirium has fully resolved History of depression Current visit: Yes Status: Acute Patient does have capacity to name DPOA today; voicemail left for CM asking to help finalize this paperwork. Opted to name and son as secondary. Do not recommend any changes to antidepressant at this point but do recommend further cognitive testing for underlying dementia once medically stable and delirium has resolved. Hospital Course Summary Disclaimer: The visit summary below is not to be considered part of the above Progress Note. Hospital Course: Impression Acute kidney injury-creatinine 2.4 (baseline 1.6) Dehydration Acute urinary retention Hypernatremia-present on admission, 148 Orthostatic hypotension Hypothyroidism DM Hypertension Hyperlipidemia CKD Coronary artery disease Anxiety, depression History of anemia. History of suicide attempt Plan-05/26/17 Admit outpatient observation under the care of Dr. Patel for dehydration and acute kidney injury with urinary retention. He was given 1 liter of normal saline while in the emergency room. Will switch to half-normal saline at 100 ML per hour for gentle hydration Will monitor Accu-Cheks and continue on Levemir 6.5 units at HS Kline catheter was placed. Given urinary retention over 300 ML. Will monitor urinary output. Given orthostatic hypotension, Will place home amiodarone and Coreg on hold. Will likely need to resume this once patient is better hydrated. Monitor blood pressures carefully and obtain orthostatics twice a day Follow routine electrolytes and renal function given acute kidney injury with hypernatremia Given findings of hypothyroidism. Will start patient on levothyroxine 25 mcg daily. Obtain Free T3 and T4. This will need to be followed in the outpatient setting with primary care SCDs to bilateral lower extremity for DVT prophylaxis Code status - DNR as per . She would like to speak to someone regarding DPOA paperwork. Will discuss further orders and plan of care with attending, Dr. Patel At time of discharge medical care will return to primary care provider, Dr Whyte 05/27/17: Scr trending down (1.9) - baseline 1.6. Continue to monitor closely. Renal sonogram results pending. CPK elevated (CPK 319). Urine creatine 189.5 and urine sodium elevated at 92. Continue 1/2NS at 100cc/hr for hydration. Monitor closely for signs of fluid overload. A1c 6.1. Continue Levemir 6.5 units QHS and monitor blood sugars closely. Sliding scale insulin - low - available as needed. Monitor urinary output closely - Kline catheter in place. Left facial droop with tongue deviation and left sided weakness noted on exam. Unknown if new findings. CT head pending. Orthostatic hypotension improved. Will continue to hold home amiodarone and coreg given concern for possible CVA and desire for passive hypertension until known as well as elevated renal function. Anticipate resuming home amiodarone and coreg once renal function improved and CT head results known incase need for passive hypertension. Monitor closely on telemetry. Continue to monitor blood pressures carefully and obtain orthostatics twice a day. Hypernatremia resolved. Continue to monitor electrolytes closely. SCDs to bilateral lower extremity for DVT prophylaxis. Case management to work with patient and family on obtaining DPOA for . Zyprexa 5mg QHS initiated on 05/24/17 in ED due to increased behaviors secondary to dementia. Dose decreased to 2.5mg QHS due to increased prolonged sedation. Given urinary retention and behavioral changes, will hold for time being. Dr. Jackson consulted. Severe hypothyroidism-discussed with endocrinology. Start Synthroid 25 g by mouth daily. Can increase by 25 g every couple of months as long as the patient is tolerating it. Free T3 and T4 pending. This will need to be followed in the outpatient setting with primary care. Previously treated with levothyroxine 25 g daily-patient discontinued at some point in the past. B-12 and folate levels pending regarding macrocytic anemia. Speech therapy has been consulted for dysphagia evaluation - awaiting evaluation. Encourage participation in therapies. Patient has reported AMY history but does not tolerate home CPAP. Overnight oximetry reveals he was stable on room air all night. Recheck labs in AM to monitor blood counts, electrolytes and renal function. Will recheck CPK to monitor for down trending. 05/28/17: Scr trending down (1.7) - baseline 1.6. Continue to monitor closely. Renal sonogram revealed echogenic renal parenchyma suggesting medical renal disease and right sided nonobstructing urinary calculi with small simple appearing renal cortical cyst. Bumex 1mg IV x 1 dose given 05/27/17 with significant improvement in urinary output. Continue to maintain Kline catheter and monitor urinary output closely. CPK trending down. Oral intake improving. Will decrease 1/2NS to 75cc/hr for continued gentle hydration. Monitor closely for signs of fluid overload. Blood pressure significantly elevated this AM (209/101). Will restart home amiodarone 200mg daily as well as carvedilol 12.5mg WB. Continue to monitor blood pressure closely. Continue to monitor closely on telemetry. Blood sugars stable. Continue Levemir 6.5 units QHS and monitor blood sugars closely. Sliding scale insulin - low - available as needed. Strength improved today and patient more alert. CT head showed mild cortical atrophy and ventricular and subcortical white matter disease without evidence of acute cortical infarct, intracranial hemorrhage or mass. Electrolytes stable. Continue to monitor closely. Dr. Jackson (psychiatric) consulted - awaiting evaluation. B12 stable at 675. Folate low-normal at 12.3. Will start daily multivitamin with folate. MMSE 09/1505/29/17: Continue medical care plan. SCr at baseline (1.5). Will continue to monitor closely. reports history of BPH with chronic urinary frequency. Will initiate Flomax QHS for probable BPH in conjunction with bladder retraining and goal of discontinuation of Kline catheter over the next 24-48 hours. Oral intake stable. Will discontinue IV fluids. Monitor electrolytes and renal function closely. Blood pressure improved with restarting of amiodarone 200mg daily as well as carvedilol 12.5mg WB. Continue to monitor closely. Due to low blood sugars in AM, Levemir was decreased from 6.5 to 5 units QHS on 05/28/17. Blood sugar this AM was 127. Continue to monitor closely. Dr. Jackson (psychiatric) evaluated patient on 05/28/17 and determined he was unable to make his decisions. Patient elected for to be his DPOA. SCDs to bilateral lower extremity for DVT prophylaxis. Encourage participation in therapies. 05/30/17 Doing well overall; no problems described overnight by staff and patient not reporting active hallucinations today. Renal function has normalized; Kline catheter discontinued this morning and patient has been able to void at least 200 mL since that time. Monitoring bladder scans to exclude development of urinary retention. Continue Flomax to minimize urinary retention. Blood sugars stable after Levemir decreased to 5 units at bedtime, blood pressure slightly lower today while standing-continue to monitor. Manuel (psychiatric) evaluated patient on 05/28/17 and determined he was unable to make his decisions. interested in correction at discharge; options being evaluated. MMSE 02/15 today 05/31/17 Medically stable; no problems described overnight by staff and patient not reporting active hallucinations today. Kline catheter discontinued yesterday, bladder scans demonstrate low residuals- consistently under 200 mL and seemed to be decreasing over time. Continue Flomax. Blood sugars stable after Levemir decreased to 5 units at bedtime. Mild asymptomatic orthostatic hypotension. Patient's delirium has cleared, underlying dementia present. Discussed with Dr. Obregon who will reassess determine if competent to sign DPOA. Continue thyroid replacement. Bowel regimen initiated. Anticipate discharge to correction on Friday if insurance authorization obtained. Continue PT/OT. Discontinue telemetry-strips reviewed this morning, consistently sinus rhythm. 06/01/17 Psych- Pt was slightly confused today. Not oriented to time. At this time the pt does not appear to have capacity to make his own decisions. I do believe his confusion will continue to improve as the delirium improves and we can reassess capacity at that time 06/01/17 Patient is very tired, fatigued. Low-grade fever present after emesis overnight. Very low Phos noted. Oral phos was started today- will continue. Will also add IV KPhos due to weakness and fatigue with altered mental status. Mag is ok. Continue replacement of thyroid. Hyponatremia and orthostatics are improved. Continue Flomax for urinary retention. Multiple BM's overnoc. Will change Senna to PRN use. Psychiatry does not feel patient is able to determine DPOA currently. Chest x-ray today due to fever. BG is controlled. Repeat labs in am for stability of anemia, electrolytes. 06/02/17 Very orthostatic this am with blood pressure supine 110/65, sitting 92/58, standing 84/49 (and this was improved compared to earlier vitals). Decrease Coreg from 12.5 mg BID to 6.25 mg BID. Continue IVF. Hgb decreased to 8.7. With orthostasis will check stool for occult blood. T 100.5 yesterday afternoon (1600). CXR from yesterday was reviewed - looks like left-sided effusion. Radiologic report is pending. WBC normal at 8.4. Start nasal saline for congestion & check viral resp panel. Phos corrected to 3.0 - continue oral replacement. ANA resolved.
[2017-06-02] MEDS: TAMSULOSIN 0.4 MG CAPSULE PO SCH (20:29)
[2017-06-02] MEDS: INSULIN DETEMIR 100unit/ml INJECTION SQ SCH (20:29)
[2017-06-03] MEDS: LEVOTHYROXINE 25 MCG TABLET PO SCH (05:38)
[2017-06-03] MEDS: OMEPRAZOLE 20 MG CAPSULE PO SCH ×2 (05:38→20:30)
[2017-06-03] MEDS: [UNRECOGNIZED DRUG - OTHER] PO SCH (09:28)
[2017-06-03] MEDS: FOLIC ACID PO SCH (09:28)
[2017-06-03] MEDS: VIT B COMP PO SCH (09:28)
[2017-06-03] MEDS: CARVEDILOL 6.25 MG TABLET PO SCH (09:28)
[2017-06-03] MEDS: NS 1,000 ML IV SCH ×2 (09:29→19:38)
[2017-06-03] MEDS: AMIODARONE 200 MG TABLET PO SCH (09:30)
[2017-06-03] MEDS: POLYETHYL GLYCOL 3350 17gm PACKET PO SCH (09:31)
[2017-06-03] MEDS: DULOXETINE 30 MG CAPSULE PO SCH (09:31)
--- NOTE | 2017-06-03 10:35 | Progress Note ---
- Date 06/03/17 Subjective: Mr. Tavares was sitting on the side of his bed. He was oriented and communicated clearly. He c/o lightheadedness especially when he stands. He denies SOA or chest pain or nausea. He didn't feel like eating his breakfast - he ordered biscuits and gravy but his biscuit was too worthy to cut with his knife. We discussed his lab findings and blood pressure concerns. He stated that he had a bleeding ulcer a while ago, and is worried that might be a recurring problem. He can't recall when his last EGD/colonoscopy was. Objective Vital signs: Temperature 97.6 F 06/03/17 07:00 Pulse Rate 103 H 06/03/17 09:05 Respiratory Rate 18 06/03/17 07:00 Blood Pressure 83/53 06/03/17 09:05 Pulse Oximetry 93 06/03/17 07:00 Rhythm: Normal Sinus Rhythm Height/Weight/BMI: Weight 90.6 kg - Constitutional Present: no acute distress, well nourished, well developed - Routine HEENT Exam Head: Present: normocephalic Eye: Present: PERRL. Absent: conjunctival icterus, scleral injection - Routine Respiratory Exam Present: CTA bilaterally - Routine Cardiovascular Exam Present: RRR, S1, S2, murmur - Routine Abdominal Exam Present: soft, normoactive bowel sounds, non distended, non tender - Routine Extremities Exam Present: no edema, pulses intact, normal capillary refill. Absent: calf tenderness - Routine Musculoskeletal Exam Musculoskeletal: Present: moving extremities well - Routine Skin Exam Present: intact, pallor, warm - Routine Neurological Exam Present: alert, oriented X3, moving all extremities, vision grossly intact, hearing grossly intact, normal speech - Routine Psychiatric Exam Present: normal affect, normal thought process, cooperative Results - Labs CBC & Chem 7: 06/03/17 04:40 06/03/17 04:40 Assessment and Plan (1) Acute kidney injury Current visit: Yes Status: Resolved Assessment and Plan: Impression Acute kidney injury (baseline 1.6) - Resolved 05/29/17. Dehydration - resolved. Acute urinary retention - resolved. Hypernatremia-present on admission, 148 - resolved. Orthostatic hypotension, improving. Acute on chronic macrocytic anemia Heme positive stool 06/02/17 Coronary artery disease Hypertension Hyperlipidemia Hypothyroidism-TSH 72.6 05/24/17, fT4 0.43 05/26/17 DM CKD BPH with urinary frequency Anxiety, depression; History of suicide attempt-years ago Plan 06/03/17 Orthostasis continues and he c/o lightheadedness with standing. Supine BP was 111/71 and HR 92 and standing 83/53 and HR 103 (though HR might be a bit higher b/c his Coreg dose was decreased to 6.25 mg yesterday). Continue IVF. Hgb has decreased further, now at 8.0. Stool for occult blood was positive. ASA placed on hold. Poor oral intake. I've consulted Dr. Clarke to evaluate for possible endoscopy. Continue Prilosec. Folate was normal a 12.3 and vitamin b12 was also normal at 675. With decreasing hgb, will check iron studies. Afebrile so far today. WBC normal at 8.4. Respiratory viral panel was negative. DVT Prophylaxis: SCD's GI Prophylaxis: other Resuscitation Status: Do Not Resuscitate - Physician Narrative Physician: Geri Hollis MD Narrative: Date: 06/03/17 Time: 1450 Mr. Vincent was interviewed and examined by me. Physical therapy is just finishing up. They did not get him out of bed to stand. His supine blood pressure was 123 systolic and dropped 119 on standing. He denied feeling lightheaded when he sat up. He continues to complain of his stomach being upset. He is not eating well. His bowels are moving. He denies feeling feverish. He denies coffer sputum production. He denies feeling short of breath. He denies any chest pain, pressure tightness. He denies palpitations. He denies any abdominal pain and states his bowels are moving. Blood pressures to drop later this morning with a systolic of 111 supine, 84 sitting and 83 standing. On physical exam: Gen: alert and oriented. NAD Skin: warm and dry HEENT: NC/AT PERRL, EOMI, Sclera, lids and conjunctiva wnl. MMM. OP clear. Neck: No JVD, Carotids 2+ with ?radiation of murmur to carotids bilaterally. Lungs: clear but diminished. No rales, rhonchi or wheezes CV: regular. There is a 2/6 murmur in the aortic position and 2/6 murmur at the LSB. Abd: soft. +BS. NT/ND MS: No edema. Good strength and ROM Neuro: No focal deficits Psy: Appropriate mood and affect Assessment and plan: Acute kidney injury (baseline 1.6) -resolved. -Cr 1.3 today Dehydration -resolved -Still on IVF. will decrease and encourage po intake. Acute urinary retention -resolved -Kline removed and pt urinating. Hypernatremia -present on admission (148) -resolved. Orthostatic hypotension -Still some orthostatic drop -Continue IVF Acute on chronic macrocytic anemia -Heme positive stool 06/02/17 -Iron studies and retic ordered. -Surgery consulted. -was on iron PRN at home (?) -PPI BID Coronary artery disease -No symptoms of angina -On aspirin (held for now due to +stool for OB), Not on statin, On BBl. Hypertension -Decrease Coreg to 3.125 mg BID. -Flomax can also cause orthostatic hypotension Hyperlipidemia -Should probably be on statin in no contraindication Hypothyroidism -TSH 72.6 05/24/17, fT4 0.43 05/26/17 -apparently levothyroxine sodium has caused him to have bad taste in his mouth with anorexia in the past. We may have to consider armor thyroid to see if that' s tolerated better once he is outpt. DM -SSI CKD -Stable to improved. BPH with urinary frequency -On flomax Anxiety, depression; History of suicide attempt-years ago -On cymbalta here. 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 Prophylaxis -SCDs, ambulate, PPI I revisited Mr. Tavares this afternoon. He is up in the chair. He is feeling pretty good. His family is in the room with him. He still has a bit of charting in his abdomen and stomach. I confirmed that he does have a bioprosthetic mitral valve and not a mechanical mitral valve. He does have mild to moderate aortic stenosis with a aortic valve area 1.13 cm in 2016. His Kline is out and he is urinating. He was on Flomax which could exacerbate orthostatic hypotension so will have to watch that. Hospital Course Summary Disclaimer: The visit summary below is not to be considered part of the above Progress Note. Hospital Course: Impression Acute kidney injury-creatinine 2.4 (baseline 1.6) Dehydration Acute urinary retention Hypernatremia-present on admission, 148 Orthostatic hypotension Hypothyroidism DM Hypertension Hyperlipidemia CKD Coronary artery disease Anxiety, depression History of anemia. History of suicide attempt Plan-05/26/17 Admit outpatient observation under the care of Dr. Patel for dehydration and acute kidney injury with urinary retention. He was given 1 liter of normal saline while in the emergency room. Will switch to half-normal saline at 100 ML per hour for gentle hydration Will monitor Accu-Cheks and continue on Levemir 6.5 units at HS Kline catheter was placed. Given urinary retention over 300 ML. Will monitor urinary output. Given orthostatic hypotension, Will place home amiodarone and Coreg on hold. Will likely need to resume this once patient is better hydrated. Monitor blood pressures carefully and obtain orthostatics twice a day Follow routine electrolytes and renal function given acute kidney injury with hypernatremia Given findings of hypothyroidism. Will start patient on levothyroxine 25 mcg daily. Obtain Free T3 and T4. This will need to be followed in the outpatient setting with primary care SCDs to bilateral lower extremity for DVT prophylaxis Code status - DNR as per . She would like to speak to someone regarding DPOA paperwork. Will discuss further orders and plan of care with attending, Dr. Patel At time of discharge medical care will return to primary care provider, Dr Whyte 05/27/17: Scr trending down (1.9) - baseline 1.6. Continue to monitor closely. Renal sonogram results pending. CPK elevated (CPK 319). Urine creatine 189.5 and urine sodium elevated at 92. Continue 1/2NS at 100cc/hr for hydration. Monitor closely for signs of fluid overload. A1c 6.1. Continue Levemir 6.5 units QHS and monitor blood sugars closely. Sliding scale insulin - low - available as needed. Monitor urinary output closely - Kline catheter in place. Left facial droop with tongue deviation and left sided weakness noted on exam. Unknown if new findings. CT head pending. Orthostatic hypotension improved. Will continue to hold home amiodarone and coreg given concern for possible CVA and desire for passive hypertension until known as well as elevated renal function. Anticipate resuming home amiodarone and coreg once renal function improved and CT head results known incase need for passive hypertension. Monitor closely on telemetry. Continue to monitor blood pressures carefully and obtain orthostatics twice a day. Hypernatremia resolved. Continue to monitor electrolytes closely. SCDs to bilateral lower extremity for DVT prophylaxis. Case management to work with patient and family on obtaining DPOA for . Zyprexa 5mg QHS initiated on 05/24/17 in ED due to increased behaviors secondary to dementia. Dose decreased to 2.5mg QHS due to increased prolonged sedation. Given urinary retention and behavioral changes, will hold for time being. Dr. Jackson consulted. Severe hypothyroidism-discussed with endocrinology. Start Synthroid 25 g by mouth daily. Can increase by 25 g every couple of months as long as the patient is tolerating it. Free T3 and T4 pending. This will need to be followed in the outpatient setting with primary care. Previously treated with levothyroxine 25 g daily-patient discontinued at some point in the past. B-12 and folate levels pending regarding macrocytic anemia. Speech therapy has been consulted for dysphagia evaluation - awaiting evaluation. Encourage participation in therapies. Patient has reported AMY history but does not tolerate home CPAP. Overnight oximetry reveals he was stable on room air all night. Recheck labs in AM to monitor blood counts, electrolytes and renal function. Will recheck CPK to monitor for down trending. 05/28/17: Scr trending down (1.7) - baseline 1.6. Continue to monitor closely. Renal sonogram revealed echogenic renal parenchyma suggesting medical renal disease and right sided nonobstructing urinary calculi with small simple appearing renal cortical cyst. Bumex 1mg IV x 1 dose given 05/27/17 with significant improvement in urinary output. Continue to maintain Kline catheter and monitor urinary output closely. CPK trending down. Oral intake improving. Will decrease 1/2NS to 75cc/hr for continued gentle hydration. Monitor closely for signs of fluid overload. Blood pressure significantly elevated this AM (209/101). Will restart home amiodarone 200mg daily as well as carvedilol 12.5mg WB. Continue to monitor blood pressure closely. Continue to monitor closely on telemetry. Blood sugars stable. Continue Levemir 6.5 units QHS and monitor blood sugars closely. Sliding scale insulin - low - available as needed. Strength improved today and patient more alert. CT head showed mild cortical atrophy and ventricular and subcortical white matter disease without evidence of acute cortical infarct, intracranial hemorrhage or mass. Electrolytes stable. Continue to monitor closely. Dr. Jackson (psychiatric) consulted - awaiting evaluation. B12 stable at 675. Folate low-normal at 12.3. Will start daily multivitamin with folate. MMSE 09/1505/29/17: Continue medical care plan. SCr at baseline (1.5). Will continue to monitor closely. reports history of BPH with chronic urinary frequency. Will initiate Flomax QHS for probable BPH in conjunction with bladder retraining and goal of discontinuation of Kline catheter over the next 24-48 hours. Oral intake stable. Will discontinue IV fluids. Monitor electrolytes and renal function closely. Blood pressure improved with restarting of amiodarone 200mg daily as well as carvedilol 12.5mg WB. Continue to monitor closely. Due to low blood sugars in AM, Levemir was decreased from 6.5 to 5 units QHS on 05/28/17. Blood sugar this AM was 127. Continue to monitor closely. Dr. Jackson (psychiatric) evaluated patient on 05/28/17 and determined he was unable to make his decisions. Patient elected for to be his DPOA. SCDs to bilateral lower extremity for DVT prophylaxis. Encourage participation in therapies. 05/30/17 Doing well overall; no problems described overnight by staff and patient not reporting active hallucinations today. Renal function has normalized; Kline catheter discontinued this morning and patient has been able to void at least 200 mL since that time. Monitoring bladder scans to exclude development of urinary retention. Continue Flomax to minimize urinary retention. Blood sugars stable after Levemir decreased to 5 units at bedtime, blood pressure slightly lower today while standing-continue to monitor. Manuel (psychiatric) evaluated patient on 05/28/17 and determined he was unable to make his decisions. interested in jail at discharge; options being evaluated. MMSE 02/15 today 05/31/17 Medically stable; no problems described overnight by staff and patient not reporting active hallucinations today. Kline catheter discontinued yesterday, bladder scans demonstrate low residuals- consistently under 200 mL and seemed to be decreasing over time. Continue Flomax. Blood sugars stable after Levemir decreased to 5 units at bedtime. Mild asymptomatic orthostatic hypotension. Patient's delirium has cleared, underlying dementia present. Discussed with Dr. Obregon who will reassess determine if competent to sign DPOA. Continue thyroid replacement. Bowel regimen initiated. Anticipate discharge to jail on Friday if insurance authorization obtained. Continue PT/OT. Discontinue telemetry-strips reviewed this morning, consistently sinus rhythm. 06/01/17 Psych- Pt was slightly confused today. Not oriented to time. At this time the pt does not appear to have capacity to make his own decisions. I do believe his confusion will continue to improve as the delirium improves and we can reassess capacity at that time 06/01/17 Patient is very tired, fatigued. Low-grade fever present after emesis overnight. Very low Phos noted. Oral phos was started today- will continue. Will also add IV KPhos due to weakness and fatigue with altered mental status. Mag is ok. Continue replacement of thyroid. Hyponatremia and orthostatics are improved. Continue Flomax for urinary retention. Multiple BM's overnoc. Will change Senna to PRN use. Psychiatry does not feel patient is able to determine DPOA currently. Chest x-ray today due to fever. BG is controlled. Repeat labs in am for stability of anemia, electrolytes. 06/02/17 Very orthostatic this am with blood pressure supine 110/65, sitting 92/58, standing 84/49 (and this was improved compared to earlier vitals). Decrease Coreg from 12.5 mg BID to 6.25 mg BID. Continue IVF. Hgb decreased to 8.7. With orthostasis will check stool for occult blood. T 100.5 yesterday afternoon (1600). CXR from yesterday was reviewed - looks like left-sided effusion. Radiologic report is pending. WBC normal at 8.4. Start nasal saline for congestion & check viral resp panel. Phos corrected to 3.0 - continue oral replacement. ANA resolved. 06/03/17 Orthostasis continues and he c/o lightheadedness with standing. Supine BP was 111/71 and HR 92 and standing 83/53 and HR 103 (though HR might be a bit higher b/c his Coreg dose was decreased to 6.25 mg yesterday). Continue IVF. Hgb has decreased further, now at 8.0. Stool for occult blood was positive. ASA placed on hold. Poor oral intake. I've consulted Dr. Clarke to evaluate for possible endoscopy. Continue Prilosec. Folate was normal a 12.3 and vitamin b12 was also normal at 675. With decreasing hgb, will check iron studies. Afebrile so far today. WBC normal at 8.4. Respiratory viral panel was negative.
--- NOTE | 2017-06-03 16:57 | General Surgery Consult Note ---
Consult date: 06/03/17 Attending Physician: Ava Rincon MD [facility] Medical History Updates: Insulin-dependent diabetes. Hypertension. Coronary artery disease. Anemia. Dementia. Chronic kidney disease. Hyperlipidemia. Anxiety, depression. History of Suicidal Ideations. Constipation. History of suicide attempt-overdose. History of nephrolithiasis Surgical History: Colonoscopy normal 05/14/3012 Crum. EGD 05/14/2012 Crum. EGD H.Pylori (+) 10/17/2008 Crum. CABG x 3 - 2004. 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 Hernia repair. Aortic and mitral valve replacement - Bioprosthetic Valve - 2004, 2007. Vasectomy. Cystoscopy with ureteral dilatation-2013, Dr. Nash Family History: Mother - age 92 of heart problems Father - age 65 HTN Sister 08/31/2015 of unknown cancer Family history of alcohol abuse - Social History Smoking status: Former smoker Substance use type: does not use Alcohol intake frequency: does not drink Housing: house Household members: spouse Current occupational status: retired Current residence: Apartment/Private Home Medications Home Medications Medication Instructions Recorded Confirmed Type Ferrous Gluconate 324 mg PO Q2D PRN #0 09/03/15 05/26/17 History Insulin Detemir [Levemir Flextouch] 6.5 unit SQ HS #0 11/23/15 05/26/17 History Omeprazole 40 mg PO BID #0 11/23/15 05/26/17 History Amiodarone [Pacerone] 200 mg PO DAILY 05/11/17 05/26/17 History Aspirin [Ecotrin] 81 mg PO Q2D 05/11/17 05/26/17 History Carvedilol [Carvedilol] 12.5 mg PO DAILY 05/11/17 05/26/17 History Duloxetine HCl [Cymbalta] 120 mg PO DAILY 05/24/17 05/26/17 History Hydrocodone/APAP 7.5/325 [[place] 1 tab PO Q4H PRN 05/24/17 05/26/17 History 7.5/325] Ondansetron Tab [Zofran Po] 4 mg PO Q6HR PRN 05/24/17 05/26/17 History OLANZapine [Zyprexa] 5 mg PO HS 05/26/17 05/26/17 History Allergies Allergy/AdvReac Type Severity Reaction Status Date / Time metformin Allergy Unknown Verified 05/26/17 12:35 Review of Systems 10-point ROS: negative except for HPI and the following: - General General: Present: other (orthostatic dizziness) - Gastrointestinal Gastrointestinal: Present: other (abd pain, poor appetite) - Genitourinary Additional comments: urinary retention - Musculoskeletal Musculoskeletal: Present: back pain, joint pain - Neurological Neurological: Present: muscle weakness, other (hallucinations, memory loss) - Psychiatric Psychiatric: Present: anxiety, depression, thought of suicide - Endocrine Endocrine: Present: diabetes - Hematologic/Lymphatic Hematologic/Lymphatic: Present: easy bruising, use of blood thinners - Vital Signs Last Vital Signs Temp 97.6 F 06/03/17 07:00 Pulse 88 06/03/17 16:06 Resp 18 06/03/17 16:06 BP 127/65 06/03/17 16:06 Pulse Ox 96 06/03/17 16:06 - Laboratory Result Diagrams: 06/03/17 04:40 06/03/17 04:40 General Surgery Results - Results Labs: 06/03/17 04:40 06/03/17 04:40
--- NOTE | 2017-06-03 20:21 | Consultation ---
DATE OF CONSULTATION 06/03/2017 FINDINGS Mr. Tavares is a 77-year-old gentleman whom I was asked to see today as a result of his finding of anemia upon laboratory evaluation in conjunction with his history for abdominal pain. The patient's was present this evening and did give a lot of the clinical history. Additional history was also obtained from reviewing the patient's electronic medical record. The patient's informs me that Mr. Tavares has had a longstanding history for anemia. She states that he has undergone multiple prior endoscopies for evaluation of his anemia. He apparently sees Dr. Bautista as well from a hematology standpoint and has been undergoing iron infusions. He informed me that his iron level recently was found to be within normal limits. states that the patient has been experiencing a component of abdominal pain over the last three months. Pain is mostly located within the epigastric region. He denies true reflux- like symptoms but then stated at times he has "a bitter taste extend up into the back of his throat" suggestive of reflux. Patient states that his appetite has been decreased. The patient's informs me that they have brought him into the emergency room several times and was "sent home and told that he had his liver enzymes were elevated from being alcoholic and that he has dementia". Patient's informs me that he has not been one to drink alcohol in the past. She states he does not drink alcohol at home. She states that he does have a component of dementia. From reviewing the patient's chart electronically it appears that he has been having some hallucinations and changes from a mental standpoint although this was not conferred/relayed by his . The patient and his 's main concern was that of his ongoing epigastric abdominal pain and reflux-like symptomatology. PAST MEDICAL HISTORY, PAST SURGICAL HISTORY, MEDICATIONS, ALLERGIES, SOCIAL HISTORY, FAMILY HISTORY, REVIEW OF SYSTEMS Performed by my nurse practitioner, Vinny Pool APRN. PHYSICAL EXAMINATION GENERAL: Mr. Tavares is a 77-year-old male who does not appear to be in acute distress this evening. He was sitting upright in the chair. VITAL SIGNS: Temperature 97.6, pulse 88, respirations 18, blood pressure 127/65 , SAO2 96% on room air. HEENT: Normocephalic. Pupils are equally round and react to light and accommodation. NECK: Supple without lymphadenopathy. CHEST: Clear to auscultation bilaterally. HEART: Regular rate and rhythm. Normal S1 and S2 without gallops, murmurs or clicks. ABDOMEN: Palpation of abdomen this evening revealed it to be soft and completely nontender. He did not have any element of guarding or rebound. No evidence for a Tijerina's sign was present. I did not appreciate evidence for hepatosplenomegaly or other abnormal masses. EXTREMITIES: Without clubbing, cyanosis, or edema. NEURO: Cranial nerves II-XII grossly intact. Patient is without focal motor or sensory deficits. LABORATORY/RADIOGRAPHIC EVALUATION The patient had a CBC today and his hemoglobin was 9.88. White count is 8.4. BMP was obtained and found to be without marked abnormalities. I do see the patient had a CMP obtained on May 26, 2017. His creatinine was elevated at 2.4 at that time. Following hydration his creatinine is improved to 1.4. I do see that his AST was elevated at 106 but his ALT, alkaline phosphatase, ammonia and total bilirubin were all found to be within normal limits previously. I did review the patient's chart and found that in April 2012, about five years ago, he underwent an EGD and colonoscopy. The patient was found to have a component of some duodenitis upon EGD. Colonoscopy was normal. I also reviewed prior EGD and colonoscopy report from October 17, 2008 which was also performed as a result of anemia at that time. A polyp was noted within the rectosigmoid junction. The polyp was hyperplastic in nature. Biopsies from the duodenum did show some superficial erosion and chronic inflammation. He was found to be positive for H. pylori as well in 2008. ASSESSMENT 77-year-old gentleman who was admitted for acute kidney injury and dehydration who has a longstanding history for chronic anemia. Patient with a several-month history of epigastric abdominal pain and reflux- like symptomatology. PLAN I have reviewed his current orders. I do see that he is being treated empirically for peptic ulcer disease/gastritis and is on Prilosec 40 mg p.o. b.i.d. From a general surgical standpoint I would recommend that we go ahead and proceed with esophagogastroduodenoscopy for further evaluation of his ongoing epigastric abdominal pain and reflux-like symptomatology. I did discuss with the family this evening what an EGD entailed and its associated risks which included but were not inclusive of bleeding and/or perforation requiring surgery. The patient understood and wished to proceed as stated above. MTDD
[2017-06-03] MEDS: TAMSULOSIN 0.4 MG CAPSULE PO SCH (20:30)
[2017-06-03] MEDS: INSULIN ASPART 100unit/ml INJECTION SQ PRN (20:56)
[2017-06-03] MEDS: INSULIN DETEMIR 100unit/ml INJECTION SQ SCH (20:56)
--- NOTE | 2017-06-03 21:31 | Progress Note ---
Progress Note: Reviewed patient's labs, charts. Recommended to hospitalist that we decrease Cymbalta to 60mg daily for time being as can interfere with platelet function and doses above 60mg/day primarily target pain rather than depression. Will continue to monitor.
[2017-06-04] MEDS: NS 1,000 ML IV SCH ×3 (06:11→15:48)
[2017-06-04] MEDS: OMEPRAZOLE 20 MG CAPSULE PO SCH ×2 (06:11→20:59)
[2017-06-04] MEDS: LEVOTHYROXINE 25 MCG TABLET PO SCH (06:11)
--- NOTE | 2017-06-04 07:22 | Anesthesia Preoperative Report ---
Anesthesia Preoperative Record - Date and Time Date: 06/04/17 Preoperative Diagnosis: Hypotension, acute kidney injury, altered mental Proposed Procedure: EGD NPO Since Date: 06/03/17 NPO Since Time: 23:00 Allergies/Adverse Reactions: Allergies Allergy/AdvReac Type Severity Reaction Status Date / Time metformin Allergy Unknown Verified 05/26/17 12:35 - Vital Signs Vital Signs: Temperature 96.9 F 06/04/17 01:00 Pulse Rate 90 06/04/17 01:04 Respiratory Rate 16 06/04/17 01:00 Blood Pressure 86/47 06/04/17 01:04 Pulse Oximetry 99 06/04/17 01:00 Height and Weight: Weight 90.6 kg - Medications Inpatient Medications: Current Medications Acetaminophen (Tylenol) 650 mg PO QID PRN PRN Reason: Discomfort Last Admin: 06/01/17 14:37 Dose: 650 mg Hydrocodone Bitart/Acetaminophen ([place] 7.5/325) 1 tab PO Q4H PRN PRN Reason: Pain Last Admin: 05/30/17 22:07 Dose: 1 tab Amiodarone HCl (Pacerone) 200 mg PO DAILY [facility] [place] Last Admin: 06/03/17 09:30 Dose: 200 mg Aspirin (Ecotrin) 81 mg PO Q2D [facility] [place] Last Admin: 06/02/17 09:36 Dose: 81 mg Bisacodyl (Dulcolax) 10 mg RECTALLY DAILY PRN PRN Reason: Constipation Last Admin: 05/31/17 17:23 Dose: 10 mg Carvedilol (Coreg) 6.25 mg PO WB [facility] [place] Last Admin: 06/03/17 09:28 Dose: 6.25 mg Duloxetine HCl (Cymbalta) 60 mg PO DAILY [facility] [place] Ferrous Gluconate (Fergon) 324 mg PO Q2D PRN PRN Reason: AT HOME Sodium Chloride (Normal Saline) 1,000 mls @ 100 mls/hr IV .Q10H [facility] [place] Last Admin: 06/04/17 06:11 Dose: 100 mls/hr Insulin Aspart (Novolog) 1 - 5 unit SQ SS PRN; Protocol PRN Reason: Hyperglycemia Last Admin: 06/03/17 20:56 Dose: 2 unit Insulin Detemir (Levemir) 5 unit SQ HS [facility] [place] Last Admin: 06/03/17 20:56 Dose: 5 unit Levothyroxine Sodium (Synthroid) 25 mcg PO ACB [facility] [place] Last Admin: 06/04/17 06:11 Dose: Not Given Magnesium Hydroxide (Mom) 30 ml PO DAILY PRN PRN Reason: Constipation Last Admin: 05/31/17 11:31 Dose: 30 ml Metoclopramide HCl (Reglan) 5 mg IVP Q6H PRN Omeprazole (Prilosec) 40 mg PO BID/E [facility] [place] Last Admin: 06/04/17 06:11 Dose: Not Given Ondansetron HCl (Zofran) 4 mg IVP Q4H PRN PRN Reason: Nausea &/or vomiting Last Admin: 06/01/17 16:49 Dose: 4 mg Polyethylene Glycol (Miralax) 17 gm PO DAILY PRN Polyethylene Glycol (Miralax) 17 gm PO DAILY [facility] [place] Last Admin: 06/03/17 09:31 Dose: Not Given Senna/Docusate Sodium (Senna Plus Tablet) 2 tab PO BID PRN PRN Reason: Constipation Sodium Chloride (Iv Flush) 10 - 80 ml IVF PRN PRN PRN Reason: Flushing Last Admin: 05/31/17 09:11 Dose: 10 ml Sodium Chloride (Deep Sea Nasal Moisturizing Meredith) 1 spray EA NOSTRIL PRN PRN PRN Reason: Congestion Tamsulosin HCl (Flomax) 0.4 mg PO HS [facility] [place] Last Admin: 06/03/17 20:30 Dose: 0.4 mg Vitamin B Complex/Folic Acid (Nephrocaps) 1 cap PO DAILY [facility] [place] Last Admin: 06/03/17 09:28 Dose: 1 cap Home Medications: Home Medications Medication Instructions Recorded Confirmed Type Ferrous Gluconate 324 mg PO Q2D PRN #0 09/03/15 05/26/17 History Insulin Detemir [Levemir Flextouch] 6.5 unit SQ HS #0 11/23/15 05/26/17 History Omeprazole 40 mg PO BID #0 11/23/15 05/26/17 History Amiodarone [Pacerone] 200 mg PO DAILY 05/11/17 05/26/17 History Aspirin [Ecotrin] 81 mg PO Q2D 05/11/17 05/26/17 History Carvedilol [Carvedilol] 12.5 mg PO DAILY 05/11/17 05/26/17 History Duloxetine HCl [Cymbalta] 120 mg PO DAILY 05/24/17 05/26/17 History Hydrocodone/APAP 7.5/325 [[place] 1 tab PO Q4H PRN 05/24/17 05/26/17 History 7.5/325] Ondansetron Tab [Zofran Po] 4 mg PO Q6HR PRN 05/24/17 05/26/17 History OLANZapine [Zyprexa] 5 mg PO HS 05/26/17 05/26/17 History Is Patient on Beta Sharan?: Yes Beta Sharan Last Dose Date/Time: 06/03/17 - Medical History Respiratory: DENIES: Asthma, Bronchitis, Chronic Obstructive Pulmonary Disease (COPD), Dyspnea, Orthopnea, Pulmonary Embolism, Pneumonia, Upper Respiratory Infection, Pulmonary Edema, Sleep Apnea, Tuberculosis, Other Cardiovascular: Reports: Coronary Artery Disease, Hypertension, Myocardial Infarction, Valvular Heart Disease DENIES: Abnormal EKG, Angina, Arrhythmia, Congestive Heart Failure, Heart Murmur, Hypotension, High Cholesterol, Rheumatic Fever, Other Gastrointestional: Reports: Gastroesophageal Reflux Disease DENIES: Obstructive Bowel, Hepatitis, Cirrhosis, Nausea or Vomiting Present, Gastrointestinal Bleeding, Hiatal Hernia, Ulcer, Morbid Obesity, Other Neuro/Musculoskeletal: Denies: HX.MS.OSAR, Back Problems, Cerebrovascular Accident, Depression, Headaches, Loss of Consciousness, Muscle Weakness, Neuromuscular Disorder, Paralysis, Paresthesia, Syncope, Seizures, Other Renal/Endocrine: Reports: Diabetes Mellitus Type 2 DENIES: Diabetes Mellitus Type 1, Renal Failure, Dialysis, Thyroid Disease, Weight Loss, Weight Gain, Other Other History: DENIES: Anesthesia Reactions, Now, Blood Transfusions, Chemotherapy , Cancer, Hemophilia, Malignant Hyperthermia, Sickle Cell Disease, Other - Surgical History Cardiac Surgeries/Treatments: Reports: Coronary Artery Bypass Graft (x3) Surgery/Treatment: REPORT: Other (Kidney DX) Anesthesia Reactions: None Hx Family Anesthesia Reaction: No History of Motion Sickness: No - Social History Smoking Status: Former smoker Hx Chewing Tobacco Use: No Second Hand Exposure: No Substance Use Type: does not use Alcohol Intake Frequency: does not drink - Pertinent Findings Laboratory: CBC and BMP 06/04/17 04:20 06/04/17 04:20 BMP 06/04/17 04:20 Sodium 143 Potassium 3.5 L Chloride 108 H Carbon Dioxide 28 BUN 17.0 Creatinine 1.4 Glucose 92 Calcium 8.1 L Liver Function 06/04/17 Range/Units 04:20 Total Bilirubin 0.30 (0.20-1.30) MG/DL AST 54 (17-59) U/L ALT 31 (1-50) U/L Alkaline Phosphatase 97 (38-126) U/L Albumin 3.0 L (3.5-5.0) g/dL EKG: Sinus Rhythm, First Degree AV Block - Physical Exam Respiratory Exam: Present: lungs clear, bilateral breath sounds equal Cardiovascular Exam: Present: regular rate and rhythm - Airway Assessment Mallampati Score: II TMD: 3 Fingerbreadths Neck Extension: fair Overall Assessment: no airway concerns - ASA ASA Score: 3 - Plan Anesthesia: General TIVA - Discussion Discussion: Discussed risks/options/alternatives of anesthesia and questions answered. Patient consents. Nursing pain assessment noted. Attestation Statement: Prior to the delivery of any anesthetic medication, I examined the patient, developed the plan, obtained the patient's consent and discussed the risk and benefits of the procedure with the patient/guardian. - Additional Information Seen by Anesthesia: Yes
[2017-06-04] MEDS ORDERED: LIDOCAINE VISCOUS 2% ORAL LIQUID 15ml PO ONE (07:23)
[2017-06-04] MEDS ORDERED: LIDOCAINE VISCOUS 2% ORAL LIQUID 15ml ONE (07:25)
--- NOTE | 2017-06-04 08:05 | Procedure Note ---
- Procedure Date/Time: Date: 06/04/17 Time: 803 Surgeon: Vince ASA Score: 3 Proceure: EGD for oscar assay, EGD- antrum biopsies - Postoperative EGD Diagnosis Postoperative EGD Diagnosis: Gastritis - Complications Estimated Blood Loss: See Anesthesia Record. Vital Signs: See Anesthesia and PACU record.
--- NOTE | 2017-06-04 08:11 | Anesthesia Postoperative Note ---
- Date and Time Date: 06/04/17 Time: 08:10 - Status Patient Participated in Evaluation: Patient Participated in Person Vital Signs: Temperature 97.2 F 06/04/17 07:28 Pulse Rate 108 H 06/04/17 07:30 Respiratory Rate 18 06/04/17 07:28 Blood Pressure 115/66 06/04/17 07:30 Pulse Oximetry 98 06/04/17 07:28 Respiratory Function: Airway Patent, Regular Respirations Cardiovascular Function: Regular Pulse EKG: Sinus Rhythm Mental Status: Alert and Oriented Pain Intensity: 0 Hydration: IV Infusing Complications During Recover: None Apparent - Follow-Up Instructions Instructions: Per Surgeon
[2017-06-04] MEDS ORDERED: NS 1,000 ML IV SCH (09:30)
[2017-06-04] MEDS: CARVEDILOL 6.25 MG TABLET PO SCH (09:49)
[2017-06-04] MEDS: VIT B COMP PO SCH (09:49)
[2017-06-04] MEDS: DULOXETINE 60 MG CAPSULE PO SCH (09:49)
[2017-06-04] MEDS: POLYETHYL GLYCOL 3350 17gm PACKET PO SCH (09:49)
[2017-06-04] MEDS: FOLIC ACID PO SCH (09:49)
[2017-06-04] MEDS: [UNRECOGNIZED DRUG - OTHER] PO SCH (09:49)
[2017-06-04] MEDS: AMIODARONE 200 MG TABLET PO SCH (09:49)
--- NOTE | 2017-06-04 10:15 | Ultrasound Report ---
Indication: Epigastric pain PROCEDURE: US gall bladder: Encounter: Initial Comparison: Renal CT dated May 11, 2017 Technique: Grayscale and color Doppler sonographic imaging of the right upper quadrant of the abdomen was performed. Findings: Hepatic parenchyma is homogeneous without evidence for focal mass. The gallbladder is normal. There is no wall thickening, pericholecystic fluid, sonographic Tijerina's sign or cholelithiasis. Both the intra and extrahepatic biliary system are of normal caliber with the common duct measuring 3 mm in dimension. Visualized portions of the head and body of the pancreas are unremarkable. The right kidney is present without collecting system dilatation. The right kidney measures 9.7 cm in length. Benign-appearing 1.6 cm right renal cyst. Nephrolithiasis, better seen on prior CT. Impression: Normal gallbladder. Right nephrolithiasis. .
[2017-06-04] MEDS: INSULIN ASPART 100unit/ml INJECTION SQ PRN ×2 (11:25→21:00)
--- NOTE | 2017-06-04 13:53 | Operative Note ---
DATE OF SERVICE 06/04/2017 SURGEON Wander Clarke MD PREOPERATIVE DIAGNOSES Personal history for epigastric abdominal pain, gastroesophageal reflux disease , anemia. POSTOPERATIVE DIAGNOSES Personal history for epigastric abdominal pain, gastroesophageal reflux disease , anemia; mild gastritis. PROCEDURE Esophagogastroduodenoscopy with biopsies from antrum for permanent pathology as well as for RAJESH assay. ANESTHESIA TIVA BRIEF HISTORY/INDICATIONS Mr. Tavares is a 77-year-old gentleman I was asked to see yesterday as a result of his history for epigastric discomfort, GERD symptomatology, and finding of anemia upon laboratory evaluation. The patient has also had a component of some emesis. It was recommended that he undergo esophagogastroduodenoscopy for further evaluation. For completeness please refer to notes included in the patient's chart. FINDINGS Upon upper endoscopy no acute pathology was noted. There was no evidence for ulcerations. No evidence for underlying neoplastic process. Within the stomach the patient was found to have some erythema of the mucosa. He does have a prior history for H. pylori gastritis. I elected to proceed with a few biopsies from the stomach for permanent pathology as well as for RAJESH assay. DESCRIPTION OF PROCEDURE After informed consent was obtained the patient was brought to the operative suite and placed on the tablet in left lateral decubitus position. The patient subsequently underwent total intravenous anesthesia by the nurse grease and tallow pumper per my request. Formal time-out was then completed. Next, an Olympus gastroscope was inserted in the oral hypopharynx and subsequently the esophagus under direct visualization. Gastroscope was advanced through the esophagus, stomach, pylorus, duodenal bulb, to second portion of the duodenum. The scope was slowly withdrawn. First and second portions of the duodenum were within normal limits. Mucosa was somewhat edematous in nature although there was no marked erythema, nor was any evidence for ulcerations. The scope was then continued to be withdrawn until it was brought forth back into the prepyloric region/antrum. As stated above, there was a component of some erythema of the mucosa within the antrum of the stomach. No soniya ulcerations were noted. A few biopsies were obtained from the antrum for permanent pathology as well as for RAJESH assay. This was done via cold biopsy technique. J maneuver was then performed. Cardia and fundus were within normal limits. Endoscopically there was no evidence for a hiatal hernia. The scope was allowed to straighten and was slowly withdrawn. The remaining corpus of the stomach was well visualized, again without marked abnormalities. The scope was then continued to be withdrawn till it was brought forth back to the level of the diaphragm. Squamocolumnar junction was located at the level of the diaphragm. Endoscopically there was no evidence for Green's metaplasia or marked distal esophagitis. Mucosa was not erythematous in nature, nor was there any evidence for ulcerations. Gastroscope was then continued to be slowly withdrawn and the remaining esophageal mucosa found within normal limits. The patient tolerated the procedure without difficulty and was sent back to the preop area in stable condition. Await the biopsy results from today's EGD and proceed accordingly with further recommendations thereafter. [facility]
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
[2017-06-04] MEDS ORDERED: CARVEDILOL 3.125 MG TABLET PO SCH (15:29)
[2017-06-04] MEDS: TAMSULOSIN 0.4 MG CAPSULE PO SCH (20:59)
[2017-06-04] MEDS: INSULIN DETEMIR 100unit/ml INJECTION SQ SCH (21:00)
[2017-06-04] MEDS: SALINE FLUSH 10ml SYRINGE IVF PRN (21:00)
[2017-06-05] MEDS: OMEPRAZOLE 20 MG CAPSULE PO SCH ×2 (05:57→20:41)
[2017-06-05] MEDS: LEVOTHYROXINE 25 MCG TABLET PO SCH (05:57)
[2017-06-05] MEDS: INSULIN ASPART 100unit/ml INJECTION SQ PRN ×3 (06:45→21:55)
[2017-06-05] MEDS ORDERED: POTASSIUM PHOSPHATE IV SCH (07:30)
[2017-06-05] MEDS ORDERED: NS IV SCH (07:30)
[2017-06-05] MEDS ORDERED: NS FLUSH BAG 500ml IV PRN (08:13)
[2017-06-05] MEDS: SALINE FLUSH 10ml SYRINGE IVF PRN (08:13)
[2017-06-05] MEDS: DULOXETINE 60 MG CAPSULE PO SCH (09:09)
[2017-06-05] MEDS: VIT B COMP PO SCH (09:09)
[2017-06-05] MEDS: FOLIC ACID PO SCH (09:09)
[2017-06-05] MEDS: [UNRECOGNIZED DRUG - OTHER] PO SCH (09:09)
[2017-06-05] MEDS: AMIODARONE 200 MG TABLET PO SCH (09:10)
[2017-06-05] MEDS: POLYETHYL GLYCOL 3350 17gm PACKET PO SCH (09:10)
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
[2017-06-05] MEDS ORDERED: LEVOTHYROXINE IVP ONE (14:00)
[2017-06-05] MEDS ORDERED: NS 0.9% INJ ONE (14:15)
[2017-06-05] MEDS: FLUDROCORTISONE 0.1 MG TABLET PO SCH (14:49)
[2017-06-05] MEDS: FERROUS GLUCONATE 324 MG TABLET PO SCH (14:49)
[2017-06-05] MEDS: TAMSULOSIN 0.4 MG CAPSULE PO SCH (20:41)
[2017-06-05] MEDS: INSULIN DETEMIR 100unit/ml INJECTION SQ SCH (21:55)
[2017-06-06] MEDS: LEVOTHYROXINE 50 MCG TABLET PO SCH (05:52)
[2017-06-06] MEDS: OMEPRAZOLE 20 MG CAPSULE PO SCH ×2 (05:52→21:00)
[2017-06-06] MEDS ORDERED: NS FLUSH BAG 500ml IV PRN (06:39)
[2017-06-06] MEDS: POLYETHYL GLYCOL 3350 17gm PACKET PO SCH (09:26)
[2017-06-06] MEDS: AMIODARONE 200 MG TABLET PO SCH (09:28)
[2017-06-06] MEDS: DULOXETINE 60 MG CAPSULE PO SCH (09:29)
[2017-06-06] MEDS: [UNRECOGNIZED DRUG - OTHER] PO SCH (09:30)
[2017-06-06] MEDS: VIT B COMP PO SCH (09:30)
[2017-06-06] MEDS: FOLIC ACID PO SCH (09:30)
--- NOTE | 2017-06-06 09:34 | Progress Note ---
- Date 06/06/17 Subjective: Andriy is seen today in follow up. He is up in the chair this morning and states he wants to go home. He denies having chest pain however reports he feels short of breath "at times". Denies GI complaints or nausea. Noted to be hypotensive this morning. Hgb decreased to 6.5 Objective Vital signs: Temperature 95.9 F L 06/06/17 07:30 Pulse Rate 103 H 06/06/17 08:10 Respiratory Rate 16 06/06/17 07:30 Blood Pressure 82/58 06/06/17 08:10 Pulse Oximetry 99 06/06/17 07:30 Rhythm: Normal Sinus Rhythm Height/Weight/BMI: Weight 91.8 kg - Constitutional Present: no acute distress - Routine HEENT Exam Eye: Present: EOMI ENT: Present: mucous membranes moist, dentition normal - Routine Respiratory Exam Present: CTA bilaterally. Absent: wheezes - Routine Cardiovascular Exam Present: RRR, S1, S2. Absent: murmur - Routine Abdominal Exam Present: soft, normoactive bowel sounds, non distended. Absent: tenderness - Routine Extremities Exam Present: edema (trace BLE), full ROM - Routine Back/Spine/Pelvis Exam Back/Spine: Present: full ROM - Routine Skin Exam Present: intact, dry, pallor, warm - Routine Neurological Exam Present: alert, CN II-XII intact, moving all extremities - Routine Lymphatic Exam Lymphatic: Absent: adenopathy - Routine Psychiatric Exam Present: cooperative Results - Labs CBC & Chem 7: 06/06/17 04:52 06/06/17 04:52 Microbiology Results: Microbiology 06/04/17 07:59 Gastric Biopsy Helicobacter pylori Rapid Urease - Final Assessment and Plan Assessment and Plan: Acute kidney injury (baseline 1.6) -resolved. -Cr 1.3 today Dehydration -resolved -encourage po intake. Acute urinary retention -resolved -Kline removed and pt urinating. -On Flomax Hypernatremia -present on admission (148) -resolved. Orthostatic hypotension -Still dropping and symptomatic. -Stop coreg and start lopressor. -JALEEL hose -Start florinef 0.1mg daily Acute on chronic macrocytic anemia -Heme positive stool 06/02/17 -Iron studies normal. Hgb varies, continue to follow -EGD done today showed mild gastritis -Surgery consulted. -PPI BID, start carafate Coronary artery disease -No symptoms of angina -On aspirin (held for now due to +stool for OB), Not on statin, On BBl. -Resume aspirin, start statin Hypertension -DC Coreg to 3.125 mg BID, start low dose lopressor BID. Hyperlipidemia -Start statin Hypothyroidism -TSH 72.6 05/24/17, fT4 0.43 05/26/17 -Increase synthroid to 50mcg daily, give IV dose of 50mcg once today DM -SSI BPH with urinary frequency -On flomax Anxiety, depression; History of suicide attempt-years ago -On cymbalta here. 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 -will need follow up TTE in next few months. -May just need higher BP -Start florinef 0.1mg daily, change coreg to lopressor Hypophos -Skim milk TID -Give K Phos today, recheck in am Hypokalemia -replace and recheck Prophylaxis -SCDs, ambulate, PPI Physical therapy consulted. 06/06/17 Continued anemia with Hgb down to 6.5 this morning Will transfuse 1 unit of PRBCs today Exact etiology of anemia is unclear, possible GI tract given stool for occult was +. Upper Scope did not revel acute pathology of active GI bleeding. ASA remains on hold. Continue PPD and add Carafate for GI protection Orthostasis is better however BP is overall low this morning <100 systolic Continue to monitor orthostasis Replace PO potassium 40 meq Case discussed with attending, Dr Hollis - Physician Narrative Physician: Geri Hollis MD Narrative: Date: 06/06/17 Time: 1447 Mr. Tavares was independently interviewed and examined by me. He is sitting up in the chair. He is comfortable. He denies any problems with fever or chills. He did report lightheadedness when getting up to the chair this morning. He did have orthostatic changes as well. He continues to complain of mild nausea but he has had no vomiting. He is eating well. He's had no diarrhea or constipation. He reports his bowels are moving however I have not seen any documented in the chart since the . That one was brown. He does not know if he's had any veronique tarry stools as he says he does look. He denies any problems with urination. I had a long conversation with his last evening. I explained the treatment for the orthostatic hypotension and told her we would try the florinef. She did tell me that he was more short of breath this afternoon when he tried to sit up. She helped him but he was really tachypneic. I listened to him and I do not hear any rales or rhonchi. There is no wheezes. I have opted to change him from Florinef to pro-am a teen to see if it makes any difference. His white blood count did go up a bit today as I assume that is probably the Florinef. Will repeat that tomorrow. His hemoglobin dropped again today. I am going to go ahead and order transfusions. We will repeat stool for occult blood. PE: Gen: alert and oriented. NAD Skin: warm and dry HEENT: NC/AT PERRL, EOMI, Sclera, lids and conjunctiva wnl. MMM. OP clear. Neck: No JVD, Carotids 2+ with ?radiation of murmur to carotids bilaterally. Lungs: clear but diminished. No rales, rhonchi or wheezes CV: regular. There is a 2/6 murmur in the aortic position and 2/6 murmur at the LSB. Abd: soft. +BS. NT/ND MS: No edema. Good strength and ROM Neuro: No focal deficits Psy: Appropriate mood and affect Acute kidney injury (baseline 1.6) -resolved. -Cr 1.4 today Dehydration -resolved -encourage po intake. Acute urinary retention -resolved -Kline removed and pt urinating. -On Flomax-which certainly can cause worsening orthostatic hypotension. Hypernatremia -present on admission (148) -resolved. Orthostatic hypotension -Still dropping and symptomatic. -Stop coreg and start lopressor. -JALEEL anderson -Start ProAmatine 2.5 mg TID Acute on chronic macrocytic anemia -Heme positive stool 06/02/17-Repeat for next couple of stools. -Iron studies normal. -EGD showed mild gastritis -Surgery consulted. -PPI BID, start carafate Coronary artery disease -No symptoms of angina -On aspirin (held for now due to +stool for OB), Not on statin, On BBl. Hypertension -DC Coreg to 3.125 mg BID, start low dose lopressor BID. Hyperlipidemia -Statin prior to discharge Hypothyroidism -TSH 72.6 05/24/17, fT4 0.43 05/26/17 -Increase synthroid to 50mcg daily, give IV dose of 50mcg once today DM -SSI BPH with urinary frequency -On flomax Anxiety, depression; History of suicide attempt-years ago -On cymbalta here. 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 -will need follow up TTE in next few months. -May just need higher BP -Switch florinef 0.1mg daily to Proamatine Hypophos -Skim milk TID -Continues to be low. Recheck in am Hypokalemia -replaced -Follow Prophylaxis -SCDs, ambulate, PPI Physical therapy consulted. I have reviewed the patient's labs, notes and imaging. I have independently evaluated him. I have discussed the patient with the nurse practitioner and agree with the above assessment and plan. Hospital Course Summary Disclaimer: The visit summary below is not to be considered part of the above Progress Note. Hospital Course: Impression Acute kidney injury-creatinine 2.4 (baseline 1.6) Dehydration Acute urinary retention Hypernatremia-present on admission, 148 Orthostatic hypotension Hypothyroidism DM Hypertension Hyperlipidemia CKD Coronary artery disease Anxiety, depression History of anemia. History of suicide attempt Plan-05/26/17 Admit outpatient observation under the care of Dr. Patel for dehydration and acute kidney injury with urinary retention. He was given 1 liter of normal saline while in the emergency room. Will switch to half-normal saline at 100 ML per hour for gentle hydration Will monitor Accu-Cheks and continue on Levemir 6.5 units at HS Kline catheter was placed. Given urinary retention over 300 ML. Will monitor urinary output. Given orthostatic hypotension, Will place home amiodarone and Coreg on hold. Will likely need to resume this once patient is better hydrated. Monitor blood pressures carefully and obtain orthostatics twice a day Follow routine electrolytes and renal function given acute kidney injury with hypernatremia Given findings of hypothyroidism. Will start patient on levothyroxine 25 mcg daily. Obtain Free T3 and T4. This will need to be followed in the outpatient setting with primary care SCDs to bilateral lower extremity for DVT prophylaxis Code status - DNR as per . She would like to speak to someone regarding DPOA paperwork. Will discuss further orders and plan of care with attending, Dr. Patel At time of discharge medical care will return to primary care provider, Dr Whyte 05/27/17: Scr trending down (1.9) - baseline 1.6. Continue to monitor closely. Renal sonogram results pending. CPK elevated (CPK 319). Urine creatine 189.5 and urine sodium elevated at 92. Continue 1/2NS at 100cc/hr for hydration. Monitor closely for signs of fluid overload. A1c 6.1. Continue Levemir 6.5 units QHS and monitor blood sugars closely. Sliding scale insulin - low - available as needed. Monitor urinary output closely - Kline catheter in place. Left facial droop with tongue deviation and left sided weakness noted on exam. Unknown if new findings. CT head pending. Orthostatic hypotension improved. Will continue to hold home amiodarone and coreg given concern for possible CVA and desire for passive hypertension until known as well as elevated renal function. Anticipate resuming home amiodarone and coreg once renal function improved and CT head results known incase need for passive hypertension. Monitor closely on telemetry. Continue to monitor blood pressures carefully and obtain orthostatics twice a day. Hypernatremia resolved. Continue to monitor electrolytes closely. SCDs to bilateral lower extremity for DVT prophylaxis. Case management to work with patient and family on obtaining DPOA for . Zyprexa 5mg QHS initiated on 05/24/17 in ED due to increased behaviors secondary to dementia. Dose decreased to 2.5mg QHS due to increased prolonged sedation. Given urinary retention and behavioral changes, will hold for time being. Dr. Jackson consulted. Severe hypothyroidism-discussed with endocrinology. Start Synthroid 25 g by mouth daily. Can increase by 25 g every couple of months as long as the patient is tolerating it. Free T3 and T4 pending. This will need to be followed in the outpatient setting with primary care. Previously treated with levothyroxine 25 g daily-patient discontinued at some point in the past. B-12 and folate levels pending regarding macrocytic anemia. Speech therapy has been consulted for dysphagia evaluation - awaiting evaluation. Encourage participation in therapies. Patient has reported AMY history but does not tolerate home CPAP. Overnight oximetry reveals he was stable on room air all night. Recheck labs in AM to monitor blood counts, electrolytes and renal function. Will recheck CPK to monitor for down trending. 05/28/17: Scr trending down (1.7) - baseline 1.6. Continue to monitor closely. Renal sonogram revealed echogenic renal parenchyma suggesting medical renal disease and right sided nonobstructing urinary calculi with small simple appearing renal cortical cyst. Bumex 1mg IV x 1 dose given 05/27/17 with significant improvement in urinary output. Continue to maintain Kline catheter and monitor urinary output closely. CPK trending down. Oral intake improving. Will decrease 1/2NS to 75cc/hr for continued gentle hydration. Monitor closely for signs of fluid overload. Blood pressure significantly elevated this AM (209/101). Will restart home amiodarone 200mg daily as well as carvedilol 12.5mg WB. Continue to monitor blood pressure closely. Continue to monitor closely on telemetry. Blood sugars stable. Continue Levemir 6.5 units QHS and monitor blood sugars closely. Sliding scale insulin - low - available as needed. Strength improved today and patient more alert. CT head showed mild cortical atrophy and ventricular and subcortical white matter disease without evidence of acute cortical infarct, intracranial hemorrhage or mass. Electrolytes stable. Continue to monitor closely. Dr. Jackson (psychiatric) consulted - awaiting evaluation. B12 stable at 675. Folate low-normal at 12.3. Will start daily multivitamin with folate. MMSE 30 05/29/17: Continue medical care plan. SCr at baseline (1.5). Will continue to monitor closely. reports history of BPH with chronic urinary frequency. Will initiate Flomax QHS for probable BPH in conjunction with bladder retraining and goal of discontinuation of Kline catheter over the next 24-48 hours. Oral intake stable. Will discontinue IV fluids. Monitor electrolytes and renal function closely. Blood pressure improved with restarting of amiodarone 200mg daily as well as carvedilol 12.5mg WB. Continue to monitor closely. Due to low blood sugars in AM, Levemir was decreased from 6.5 to 5 units QHS on 05/28/17. Blood sugar this AM was 127. Continue to monitor closely. Dr. Jackson (psychiatric) evaluated patient on 05/28/17 and determined he was unable to make his decisions. Patient elected for to be his DPOA. SCDs to bilateral lower extremity for DVT prophylaxis. Encourage participation in therapies. 05/30/17 Doing well overall; no problems described overnight by staff and patient not reporting active hallucinations today. Renal function has normalized; Kline catheter discontinued this morning and patient has been able to void at least 200 mL since that time. Monitoring bladder scans to exclude development of urinary retention. Continue Flomax to minimize urinary retention. Blood sugars stable after Levemir decreased to 5 units at bedtime, blood pressure slightly lower today while standing-continue to monitor. Manuel (psychiatric) evaluated patient on 05/28/17 and determined he was unable to make his decisions. interested in assisted at discharge; options being evaluated. MMSE 02/15 today 05/31/17 Medically stable; no problems described overnight by staff and patient not reporting active hallucinations today. Kline catheter discontinued yesterday, bladder scans demonstrate low residuals- consistently under 200 mL and seemed to be decreasing over time. Continue Flomax. Blood sugars stable after Levemir decreased to 5 units at bedtime. Mild asymptomatic orthostatic hypotension. Patient's delirium has cleared, underlying dementia present. Discussed with Dr. Obregon who will reassess determine if competent to sign DPOA. Continue thyroid replacement. Bowel regimen initiated. Anticipate discharge to assisted on Friday if insurance authorization obtained. Continue PT/OT. Discontinue telemetry-strips reviewed this morning, consistently sinus rhythm. 06/01/17 Psych- Pt was slightly confused today. Not oriented to time. At this time the pt does not appear to have capacity to make his own decisions. I do believe his confusion will continue to improve as the delirium improves and we can reassess capacity at that time 06/01/17 Patient is very tired, fatigued. Low-grade fever present after emesis overnight. Very low Phos noted. Oral phos was started today- will continue. Will also add IV KPhos due to weakness and fatigue with altered mental status. Mag is ok. Continue replacement of thyroid. Hyponatremia and orthostatics are improved. Continue Flomax for urinary retention. Multiple BM's overnoc. Will change Senna to PRN use. Psychiatry does not feel patient is able to determine DPOA currently. Chest x-ray today due to fever. BG is controlled. Repeat labs in am for stability of anemia, electrolytes. 06/02/17 Very orthostatic this am with blood pressure supine 110/65, sitting 92/58, standing 84/49 (and this was improved compared to earlier vitals). Decrease Coreg from 12.5 mg BID to 6.25 mg BID. Continue IVF. Hgb decreased to 8.7. With orthostasis will check stool for occult blood. T 100.5 yesterday afternoon (1600). CXR from yesterday was reviewed - looks like left-sided effusion. Radiologic report is pending. WBC normal at 8.4. Start nasal saline for congestion & check viral resp panel. Phos corrected to 3.0 - continue oral replacement. ANA resolved. 06/03/17 Orthostasis continues and he c/o lightheadedness with standing. Supine BP was 111/71 and HR 92 and standing 83/53 and HR 103 (though HR might be a bit higher b/c his Coreg dose was decreased to 6.25 mg yesterday). Continue IVF. Hgb has decreased further, now at 8.0. Stool for occult blood was positive. ASA placed on hold. Poor oral intake. I've consulted Dr. Clarke to evaluate for possible endoscopy. Continue Prilosec. Folate was normal a 12.3 and vitamin b12 was also normal at 675. With decreasing hgb, will check iron studies. Afebrile so far today. WBC normal at 8.4. Respiratory viral panel was negative. 06/06/17 Continued anemia with Hgb down to 6.5 this morning Will transfuse 1 unit of PRBCs today Exact etiology of anemia is unclear, possible GI tract given stool for occult was +. Upper Scope did not revel acute pathology of active GI bleeding. ASA remains on hold. Continue PPD and add Carafate for GI protection Orthostasis is better however BP is overall low this morning <100 systolic Continue to monitor orthostasis Replace PO potassium 40 meq Case discussed with attending, Dr Hollis
--- NOTE | 2017-06-06 10:09 | XRay Report ---
INDICATION: pt feeling short of air PROCEDURE: CHEST 2-VIEWS UPRIGHT (PA & LAT) Encounter: Initial COMPARISON: June 01, 2017 FINDINGS: Chronic airspace opacity and scarring in the left lower lobe is again noted with pleural thickening. No new or worsening infiltrates seen. No pneumothorax. Heart size and mediastinal contours are stable. Prior CABG. Pulmonary vascularity is normal. Impression: Stable chest without focal pneumonia. .
[2017-06-06] MEDS: FLUDROCORTISONE 0.1 MG TABLET PO SCH (10:10)
[2017-06-06] MEDS: SUCRALFATE 1 GM TABLET PO SCH ×3 (12:23→21:00)
--- NOTE | 2017-06-06 14:00 | Progress Note ---
DATE 06/05/2017 FINDINGS Mr. Tavares was seen this evening on rounds. He denied any epigastric abdominal pain or reflux symptomatology this evening. The patient stated he was " feeling better. VITALS: Temperature 97.7, pulse 102, respirations 20, blood pressure 138/74, SaO2 98% room air. HEENT: Normocephalic. Pupils are equal, round and reactive to light and accommodation. CHEST: Clear to auscultation bilaterally. HEART: Regular rate and rhythm. Normal S1 and S2 without gallops, murmurs or clicks. ABDOMEN: Palpation of the abdomen reveals it to be soft and nontender. I do not appreciate any evidence for hepatosplenomegaly or abnormal masses. LABORATORY/RADIOGRAPH EVALUATION The patient did have a gallbladder sonogram obtained earlier today. Gallbladder sonogram was within normal limits. There was no evidence for cholelithiasis. No gallbladder wall thickening, pericholecystic fluid was noted. Biopsies obtained from his EGD revealed a component of some mucosal inflammation. No H. pylori was identified. RAJESH assay was also found to be negative in nature. ASSESSMENT 77-year-old gentleman with multiple medical comorbidities, history for epigastric pain and GERD. The patient is improving from a clinical standpoint. PLAN The patient appears to be stable from a general surgical standpoint at this time. Will go ahead and sign off of the patient's care. I do see that his hemoglobin has drifted down slightly at 7.7. If the patient would continue to have ongoing progressive anemia, may consider proceeding with a colonoscopy. The patient, however, has a longstanding history for anemia and his anemia is not a new process. [facility]
[2017-06-06] MEDS: MIDODRINE 2.5 MG TABLET PO SCH (16:26)
[2017-06-06] MEDS: INSULIN DETEMIR 100unit/ml INJECTION SQ SCH (21:00)
[2017-06-06] MEDS: TAMSULOSIN 0.4 MG CAPSULE PO SCH (21:00)
[2017-06-06] MEDS: PHOSPHORUS 250 MG TABLET PO SCH (23:02)
[2017-06-07] MEDS: OMEPRAZOLE 20 MG CAPSULE PO SCH (06:06)
[2017-06-07] MEDS: MIDODRINE 2.5 MG TABLET PO SCH ×4 (06:06→15:25)
[2017-06-07] MEDS: LEVOTHYROXINE 50 MCG TABLET PO SCH (06:06)
[2017-06-07] MEDS: SUCRALFATE 1 GM TABLET PO SCH ×4 (06:09→21:22)
[2017-06-07] MEDS: POLYETHYL GLYCOL 3350 17gm PACKET PO SCH (09:17)
[2017-06-07] MEDS: AMIODARONE 200 MG TABLET PO SCH (09:17)
[2017-06-07] MEDS: VIT B COMP PO SCH (09:18)
[2017-06-07] MEDS: [UNRECOGNIZED DRUG - OTHER] PO SCH (09:18)
[2017-06-07] MEDS: FOLIC ACID PO SCH (09:18)
[2017-06-07] MEDS: DULOXETINE 60 MG CAPSULE PO SCH (09:18)
[2017-06-07] MEDS: FERROUS GLUCONATE 324 MG TABLET PO SCH (13:11)
[2017-06-07] MEDS: INSULIN ASPART 100unit/ml INJECTION SQ PRN ×2 (13:12→21:29)
--- NOTE | 2017-06-07 13:56 | Progress Note ---
- Date 06/07/17 Subjective: F/U: orthostatic hypotension, acute on chronic anemia, dehydration with acute kidney injury. Mr. Tavares is seen today while sitting in his recliner, watching TV. He reports that overall he is doing fine. He denies any current pain but does admit to persistent dyspnea with exertion as well as lightheadedness with standing. He also states that his appetite has been poor today, stating he is "queasy". He denies any chest pain, shortness of breath at rest, abdominal pain, vomiting, dysuria or diarrhea. He underwent an EGD on 06/04/17 which revealed some gastritis. H.pylori was negative. Labs today revealed decrease in hemoglobin (down to 8.0 from 9.0). He received 1 unit PRBC on 06/06/17 due to initial hemoglobin of 6.5 which improved to 9.0. He denies any bright red blood in his stools or dark, tarry stools. WBC remains stable at 11.1 with 77% neutrophils. Renal function stable with SCr 1.3 and BUN 22.0. Iron studies revealed iron was low at 56 (range 49-181) and TIBC was low at 270 (range 261- 497). He is eager for discharge home. Objective Vital signs: Temperature 96.6 F L 06/07/17 08:00 Pulse Rate 103 H 06/07/17 08:44 Respiratory Rate 18 06/07/17 08:00 Blood Pressure 112/67 06/07/17 08:44 Pulse Oximetry 99 06/07/17 08:00 Height/Weight/BMI: Weight 201 lb 15.095 oz Comments: Patient sitting in recliner, watching TV. Berating easily on room air. - Constitutional Present: no acute distress, well nourished, well developed, cooperative - Routine HEENT Exam Head: Present: normocephalic, atraumatic Eye: Present: PERRL. Absent: conjunctival icterus ENT: Present: mucous membranes moist, oropharynx clear Comments: Chewing gum on exam. - Routine Respiratory Exam Present: decreased breath sounds. Absent: respiratory distress, wheezes Comments: Fine bibasilar crackles; no conversational dyspnea; no cough. - Routine Cardiovascular Exam Present: S1, S2, irregularly irregular - Routine Abdominal Exam Present: soft, normoactive bowel sounds, non tender, distended - Routine Extremities Exam Present: edema (trace), pulses intact - Routine Back/Spine/Pelvis Exam Back/Spine: Present: full ROM. Absent: vertebral tenderness - Routine Musculoskeletal Exam Musculoskeletal: Present: moving extremities well - Routine Skin Exam Present: intact, dry, pallor, warm Comments: Afebrile. - Routine Neurological Exam Present: alert, moving all extremities, hearing grossly intact, normal speech - Routine Lymphatic Exam Lymphatic: Absent: lymphedema - Routine Psychiatric Exam Present: cooperative Results - Labs CBC & Chem 7: 06/07/17 04:44 06/07/17 04:44 Microbiology Results: Microbiology 06/04/17 07:59 Gastric Biopsy Helicobacter pylori Rapid Urease - Final Assessment and Plan Assessment and Plan: Assessment/Plan - 06/07/17: Leukocytosis - WBC remains at 11.1 with 77% neutrophils. Patient remains afebrile. Continue to monitor closely. Orthostatic hypotension - Supine BP 153/103, HR 102; sitting BP 117/72, HR 106; standing BP 112/67, HR 103. Patient admits to lightheadedness with standing. Continue to monitor closely. High fall risk. Continue midodrine TID (started 06/06/17) and monitor closely. Acute on chronic macrocytic anemia - Heme + stool 06/02/17; EGD on 06/04/17 revealed mild gastritis without obvious bleeding. Hgb decreased to 8.0 today: Hgb decreased to 6.5 on 06/06 - given 1 unit PRBC - Hgb increased to 9.0 after transfusion. Will start Protonix 40mg BID with Carafate and stop home Prilosec. Continue to monitor hgb closely. Consider GI prep for colonoscopy. Hypophosphatemia Gave K phos on 06/06/17. Encourage Skim milk TID Recheck phos and mg in AM. Paroxysmal a-fib Irregularly irregular heart sounds on exam. Patient placed on telemetry which revealed a-fib. Family admits to history of a-fib. Patient home meds include amiodarone 100mg daily. Continue to monitor closely on telemetry. Acute kidney injury (baseline 1.6) with dehydration -resolved. Continue to monitor renal function closely. Encourage oral fluid intake. Acute urinary retention - resolved. Adequate urinary output. Continue to monitor I&O closely. Consider changing to Proscar or Avodart given orthostatic hypotension. Hypernatremia - present on admission - resolved. Continue to monitor electrolytes closely. CAD. Continue to hold home ASA given anemia and GI bleed. Recommend starting statin on discharge for cardiac protection. Hypertension Home Coreg discontinued. Continue metoprolol (started 06/05/17). Blood pressure fairly well controlled. Hypothyroidism TSH 72.6 05/24/17, fT4 0.43 05/26/17 Synthroid increased to 50mcg daily on 06/06/17. DM Continue to monitor blood sugars closely; SSI as needed. Anxiety, depression; History of suicide attempt-years ago Continue home cymbalta and zyprexa. Monitor closely for behaviors and mood changes. 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 Will need follow up TTE in next few months. Prophylaxis SCDs, ambulate, Protonix and carafate. Physical therapy consulted. Recheck CBC, BMP, Mg and Phos in AM to monitor blood counts, electrolytes and renal function. DVT Prophylaxis: SCD's GI Prophylaxis: Protonix Resuscitation Status: Do Not Resuscitate - Time spent with patient Time with patient PN: 35 minutes - Physician Narrative Physician: Miguel Gloria MD Narrative: Date: 06/07/17 Time: 1500 Have independently interviewed and examined pt. Chart reviewed. Case discussed with my PA. Care plan developed with my supervision; agree with above. Doing okay this afternoon. Oral drive decreased-nothing tastes right. Slight nausea. Breathing stable-slight SOA but not congestion/cough. No chest pain. Urinating well. Lungs: decreased, no distress CV: regular AB: soft nt EXT: trace edema, SCD in place MSE: awake alert Plan: Will give oral KPhos this evening. Continue Protonix and Carafate for gastritis - hemoglobin 8.0 this am, improved from 6.5 yesterday. Will start Avodart to help urinary flow, holding Flomax. Hospital Course Summary Disclaimer: The visit summary below is not to be considered part of the above Progress Note. Hospital Course: Impression Acute kidney injury-creatinine 2.4 (baseline 1.6) Dehydration Acute urinary retention Hypernatremia-present on admission, 148 Orthostatic hypotension Hypothyroidism DM Hypertension Hyperlipidemia CKD Coronary artery disease Anxiety, depression History of anemia. History of suicide attempt Plan-4/9/18 Admit outpatient observation under the care of Dr. Patel for dehydration and acute kidney injury with urinary retention. He was given 1 liter of normal saline while in the emergency room. Will switch to half-normal saline at 100 ML per hour for gentle hydration Will monitor Accu-Cheks and continue on Levemir 6.5 units at HS Kline catheter was placed. Given urinary retention over 300 ML. Will monitor urinary output. Given orthostatic hypotension, Will place home amiodarone and Coreg on hold. Will likely need to resume this once patient is better hydrated. Monitor blood pressures carefully and obtain orthostatics twice a day Follow routine electrolytes and renal function given acute kidney injury with hypernatremia Given findings of hypothyroidism. Will start patient on levothyroxine 25 mcg daily. Obtain Free T3 and T4. This will need to be followed in the outpatient setting with primary care SCDs to bilateral lower extremity for DVT prophylaxis Code status - DNR as per . She would like to speak to someone regarding DPOA paperwork. Will discuss further orders and plan of care with attending, Dr. Patel At time of discharge medical care will return to primary care provider, Dr Whyte 05/27/17: Scr trending down (1.9) - baseline 1.6. Continue to monitor closely. Renal sonogram results pending. CPK elevated (CPK 319). Urine creatine 189.5 and urine sodium elevated at 92. Continue 1/2NS at 100cc/hr for hydration. Monitor closely for signs of fluid overload. A1c 6.1. Continue Levemir 6.5 units QHS and monitor blood sugars closely. Sliding scale insulin - low - available as needed. Monitor urinary output closely - Kline catheter in place. Left facial droop with tongue deviation and left sided weakness noted on exam. Unknown if new findings. CT head pending. Orthostatic hypotension improved. Will continue to hold home amiodarone and coreg given concern for possible CVA and desire for passive hypertension until known as well as elevated renal function. Anticipate resuming home amiodarone and coreg once renal function improved and CT head results known incase need for passive hypertension. Monitor closely on telemetry. Continue to monitor blood pressures carefully and obtain orthostatics twice a day. Hypernatremia resolved. Continue to monitor electrolytes closely. SCDs to bilateral lower extremity for DVT prophylaxis. Case management to work with patient and family on obtaining DPOA for . Zyprexa 5mg QHS initiated on 05/24/17 in ED due to increased behaviors secondary to dementia. Dose decreased to 2.5mg QHS due to increased prolonged sedation. Given urinary retention and behavioral changes, will hold for time being. Dr. Jackson consulted. Severe hypothyroidism-discussed with endocrinology. Start Synthroid 25 g by mouth daily. Can increase by 25 g every couple of months as long as the patient is tolerating it. Free T3 and T4 pending. This will need to be followed in the outpatient setting with primary care. Previously treated with levothyroxine 25 g daily-patient discontinued at some point in the past. B-12 and folate levels pending regarding macrocytic anemia. Speech therapy has been consulted for dysphagia evaluation - awaiting evaluation. Encourage participation in therapies. Patient has reported AMY history but does not tolerate home CPAP. Overnight oximetry reveals he was stable on room air all night. Recheck labs in AM to monitor blood counts, electrolytes and renal function. Will recheck CPK to monitor for down trending. 05/28/17: Scr trending down (1.7) - baseline 1.6. Continue to monitor closely. Renal sonogram revealed echogenic renal parenchyma suggesting medical renal disease and right sided nonobstructing urinary calculi with small simple appearing renal cortical cyst. Bumex 1mg IV x 1 dose given 05/27/17 with significant improvement in urinary output. Continue to maintain Kline catheter and monitor urinary output closely. CPK trending down. Oral intake improving. Will decrease 1/2NS to 75cc/hr for continued gentle hydration. Monitor closely for signs of fluid overload. Blood pressure significantly elevated this AM (209/101). Will restart home amiodarone 200mg daily as well as carvedilol 12.5mg WB. Continue to monitor blood pressure closely. Continue to monitor closely on telemetry. Blood sugars stable. Continue Levemir 6.5 units QHS and monitor blood sugars closely. Sliding scale insulin - low - available as needed. Strength improved today and patient more alert. CT head showed mild cortical atrophy and ventricular and subcortical white matter disease without evidence of acute cortical infarct, intracranial hemorrhage or mass. Electrolytes stable. Continue to monitor closely. Dr. Jacskon (psychiatric) consulted - awaiting evaluation. B12 stable at 675. Folate low-normal at 12.3. Will start daily multivitamin with folate. MMSE 730 4/12/18: Continue medical care plan. SCr at baseline (1.5). Will continue to monitor closely. reports history of BPH with chronic urinary frequency. Will initiate Flomax QHS for probable BPH in conjunction with bladder retraining and goal of discontinuation of Kline catheter over the next 24-48 hours. Oral intake stable. Will discontinue IV fluids. Monitor electrolytes and renal function closely. Blood pressure improved with restarting of amiodarone 200mg daily as well as carvedilol 12.5mg WB. Continue to monitor closely. Due to low blood sugars in AM, Levemir was decreased from 6.5 to 5 units QHS on 05/28/17. Blood sugar this AM was 127. Continue to monitor closely. Dr. Jackson (psychiatric) evaluated patient on 05/28/17 and determined he was unable to make his decisions. Patient elected for to be his DPOA. SCDs to bilateral lower extremity for DVT prophylaxis. Encourage participation in therapies. 05/30/17 Doing well overall; no problems described overnight by staff and patient not reporting active hallucinations today. Renal function has normalized; Kline catheter discontinued this morning and patient has been able to void at least 200 mL since that time. Monitoring bladder scans to exclude development of urinary retention. Continue Flomax to minimize urinary retention. Blood sugars stable after Levemir decreased to 5 units at bedtime, blood pressure slightly lower today while standing-continue to monitor. Manuel (psychiatric) evaluated patient on 05/28/17 and determined he was unable to make his decisions. interested in [facility] at discharge; options being evaluated. MMSE 02/15 today 05/31/17 Medically stable; no problems described overnight by staff and patient not reporting active hallucinations today. Kline catheter discontinued yesterday, bladder scans demonstrate low residuals- consistently under 200 mL and seemed to be decreasing over time. Continue Flomax. Blood sugars stable after Levemir decreased to 5 units at bedtime. Mild asymptomatic orthostatic hypotension. Patient's delirium has cleared, underlying dementia present. Discussed with Dr. Obregon who will reassess determine if competent to sign DPOA. Continue thyroid replacement. Bowel regimen initiated. Anticipate discharge to [facility] on Friday if insurance authorization obtained. Continue PT/OT. Discontinue telemetry-strips reviewed this morning, consistently sinus rhythm. 06/01/17 Psych- Pt was slightly confused today. Not oriented to time. At this time the pt does not appear to have capacity to make his own decisions. I do believe his confusion will continue to improve as the delirium improves and we can reassess capacity at that time. 06/01/17 Patient is very tired, fatigued. Low-grade fever present after emesis overnight. Very low Phos noted. Oral phos was started today- will continue. Will also add IV KPhos due to weakness and fatigue with altered mental status. Mag is ok. Continue replacement of thyroid. Hyponatremia and orthostatics are improved. Continue Flomax for urinary retention. Multiple BM's overnoc. Will change Senna to PRN use. Psychiatry does not feel patient is able to determine DPOA currently. Chest x-ray today due to fever. BG is controlled. Repeat labs in am for stability of anemia, electrolytes. 06/02/17 Very orthostatic this am with blood pressure supine 110/65, sitting 92/58, standing 84/49 (and this was improved compared to earlier vitals). Decrease Coreg from 12.5 mg BID to 6.25 mg BID. Continue IVF. Hgb decreased to 8.7. With orthostasis will check stool for occult blood. T 100.5 yesterday afternoon (1600). CXR from yesterday was reviewed - looks like left-sided effusion. Radiologic report is pending. WBC normal at 8.4. Start nasal saline for congestion & check viral respiratory panel. Phos corrected to 3.0 - continue oral replacement. ANA resolved. 06/03/17 Orthostasis continues and he c/o lightheadedness with standing. Supine BP was 111/71 and HR 92 and standing 83/53 and HR 103 (though HR might be a bit higher b/c his Coreg dose was decreased to 6.25 mg yesterday). Continue IVF. Hgb has decreased further, now at 8.0. Stool for occult blood was positive. ASA placed on hold. Poor oral intake. I've consulted Dr. Clarke to evaluate for possible endoscopy. Continue Prilosec. Folate was normal a 12.3 and vitamin b12 was also normal at 675. With decreasing hgb, will check iron studies. Afebrile so far today. WBC normal at 8.4. Respiratory viral panel was negative. 06/04/17 EGD - gastritis. Protonix started BID with Carafate ac meals and q hs. 06/05/17 Orthostatic hypotension -Still dropping and symptomatic. Will stop Coreg and start Lopressor, JALEEL almeidae. Start Florinef 0.1mg daily 06/06/17 Continued anemia with Hgb down to 6.5 this morning Will transfuse 1 unit of PRBCs today. Exact etiology of anemia is unclear, possible GI tract given stool for occult was +. Upper Scope did not revel acute pathology of active GI bleeding. ASA remains on hold. Continue PPD and add Carafate for GI protection Orthostasis is better however BP is overall low this morning <100 systolic. Will start ProAmatine and stop Florinef. Replace PO potassium 40 meq. 06/07/17 Continue Protonix and Carafate for gastritis - hemoglobin 8.0 this am, improved from 6.5 yesterday. Will start Avodart to help urinary flow, holding Flomax. Will give oral KPhos this evening.
[2017-06-07] MEDS ORDERED: PHOSPHORUS 250 MG TABLET PO ONE (17:30)
[2017-06-07] MEDS: PANTOPRAZOLE 40 MG TABLET PO SCH (17:49)
[2017-06-07] MEDS: DUTASTERIDE 0.5 MG CAPSULE PO SCH (21:22)
[2017-06-07] MEDS: INSULIN DETEMIR 100unit/ml INJECTION SQ SCH (21:23)
[2017-06-08] MEDS: PANTOPRAZOLE 40 MG TABLET PO SCH ×2 (06:32→17:23)
[2017-06-08] MEDS: MIDODRINE 2.5 MG TABLET PO SCH ×3 (06:32→14:28)
[2017-06-08] MEDS: LEVOTHYROXINE 50 MCG TABLET PO SCH (06:33)
[2017-06-08] MEDS: SUCRALFATE 1 GM TABLET PO SCH ×4 (06:33→21:01)
[2017-06-08] MEDS: FOLIC ACID PO SCH (09:29)
[2017-06-08] MEDS: VIT B COMP PO SCH (09:29)
[2017-06-08] MEDS: [UNRECOGNIZED DRUG - OTHER] PO SCH (09:29)
[2017-06-08] MEDS: DULOXETINE 60 MG CAPSULE PO SCH (09:29)
[2017-06-08] MEDS: AMIODARONE 200 MG TABLET PO SCH (09:30)
[2017-06-08] MEDS: POLYETHYL GLYCOL 3350 17gm PACKET PO SCH (09:31)
--- NOTE | 2017-06-08 12:24 | Progress Note ---
- Date 06/08/17 Subjective: Andriy is seen this morning resting in bed. He denies having pain at time of examination. No shortness of breath or GI complaints. Appetite is good. Hgb stable at 8.4 Objective Vital signs: Temperature 95.8 F L 06/08/17 08:00 Pulse Rate 112 H 06/08/17 08:18 Respiratory Rate 14 06/08/17 08:00 Blood Pressure 116/74 06/08/17 08:18 Pulse Oximetry 95 06/08/17 08:00 Rhythm: Normal Sinus Rhythm Height/Weight/BMI: Weight 91.8 kg - Constitutional Present: no acute distress, well nourished, well developed - Routine HEENT Exam Eye: Present: EOMI ENT: Present: mucous membranes moist, dentition normal - Routine Respiratory Exam Present: CTA bilaterally. Absent: wheezes - Routine Cardiovascular Exam Present: RRR, S1, S2. Absent: murmur - Routine Abdominal Exam Present: soft, normoactive bowel sounds, non distended. Absent: tenderness - Routine Extremities Exam Present: no edema - Routine Skin Exam Present: intact, dry, warm - Routine Neurological Exam Present: alert, CN II-XII intact, moving all extremities - Routine Lymphatic Exam Lymphatic: Absent: adenopathy - Routine Psychiatric Exam Present: cooperative Results - Labs CBC & Chem 7: 06/08/17 04:21 06/08/17 04:21 Microbiology Results: Microbiology 06/04/17 07:59 Gastric Biopsy Helicobacter pylori Rapid Urease - Final Assessment and Plan Assessment and Plan: Impression Leukocytosis Orthostatic hypotension Acute on chronic macrocytic anemia Hypophosphatemia Paroxysmal atrial fibrillation Chronic kidney disease-resolved Urinary retention-resolved Hypernatremia,-resolved Valvular heart disease Coronary artery disease Hypertension Hypothyroidism Diabetes Anxiety, depression Plan Replace phosphorus orally today Continued to follow routine labs. Hgb stable at 8.4. Continue to monitor blood sugars, he has had several low sugars. Will decrease sliding-scale insulin so that he does not receive any insulin unless sugars greater than 200. Monitor blood pressures for orthostasis Hopeful for discharge in the next few days [place] Acute kidney injury (POA) - resolved. Acute urinary retention Dehydration (POA) - resolved Hypernatremia (POA) Orthostatic hypotension Hypophosphatemia (not POA) Acute on chronic macrocytic anemia - transfused 1 unit pRBC 06/06 Mild gastritis on EGD GERD Hypothyroidism - Synthroid started this hospitalization Type II DM - insulin requiring Coronary artery disease Paroxysmal atrial fibrillation Hypertension Hyperlipidemia Stage III CKD Anxiety, depression History of suicide attempt DVT Prophylaxis: SCD's Resuscitation Status: Do Not Resuscitate - Time spent with patient Time with patient PN: 25 minutes - Physician Narrative Physician: Miguel Gloria MD Narrative: Date: 06/08/17 Time: 1330 Have independently interviewed and examined pt. Chart reviewed. Case discussed with my GEOTECHNICAL LABORATORY TECHNICIAN. Care plan developed with my supervision; agree with above. Doing well today. Feeling less dizzy/unsteady with positional changes. Breathing well. No ab pain or discomfort. Not reporting stool today. No nausea. Urinating well. No f/c. Lungs: clear bilaterally, no distress on RA. CV: regular AB: soft nt/nd EXT: no edema, SCD in place MSE: awake alert Plan: Will give IV Kphos today as phos level still low. Continue treatments for gastritis. Encourage activities. Likely discharge tomorrow if hemoglobin stable- anticipate skilled care at [facility] post discharge. Hospital Course Summary Disclaimer: The visit summary below is not to be considered part of the above Progress Note. Hospital Course: Impression Acute kidney injury-creatinine 2.4 (baseline 1.6) Dehydration Acute urinary retention Hypernatremia-present on admission, 148 Orthostatic hypotension Hypothyroidism DM Hypertension Hyperlipidemia CKD Coronary artery disease Anxiety, depression History of anemia. History of suicide attempt Plan-05/26/17 Admit outpatient observation under the care of Dr. Patel for dehydration and acute kidney injury with urinary retention. He was given 1 liter of normal saline while in the emergency room. Will switch to half-normal saline at 100 ML per hour for gentle hydration Will monitor Accu-Cheks and continue on Levemir 6.5 units at HS Kline catheter was placed. Given urinary retention over 300 ML. Will monitor urinary output. Given orthostatic hypotension, Will place home amiodarone and Coreg on hold. Will likely need to resume this once patient is better hydrated. Monitor blood pressures carefully and obtain orthostatics twice a day Follow routine electrolytes and renal function given acute kidney injury with hypernatremia Given findings of hypothyroidism. Will start patient on levothyroxine 25 mcg daily. Obtain Free T3 and T4. This will need to be followed in the outpatient setting with primary care SCDs to bilateral lower extremity for DVT prophylaxis Code status - DNR as per . She would like to speak to someone regarding DPOA paperwork. Will discuss further orders and plan of care with attending, Dr. Patel At time of discharge medical care will return to primary care provider, Dr Whyte 05/27/17: Scr trending down (1.9) - baseline 1.6. Continue to monitor closely. Renal sonogram results pending. CPK elevated (CPK 319). Urine creatine 189.5 and urine sodium elevated at 92. Continue 1/2NS at 100cc/hr for hydration. Monitor closely for signs of fluid overload. A1c 6.1. Continue Levemir 6.5 units QHS and monitor blood sugars closely. Sliding scale insulin - low - available as needed. Monitor urinary output closely - Kline catheter in place. Left facial droop with tongue deviation and left sided weakness noted on exam. Unknown if new findings. CT head pending. Orthostatic hypotension improved. Will continue to hold home amiodarone and coreg given concern for possible CVA and desire for passive hypertension until known as well as elevated renal function. Anticipate resuming home amiodarone and coreg once renal function improved and CT head results known incase need for passive hypertension. Monitor closely on telemetry. Continue to monitor blood pressures carefully and obtain orthostatics twice a day. Hypernatremia resolved. Continue to monitor electrolytes closely. SCDs to bilateral lower extremity for DVT prophylaxis. Case management to work with patient and family on obtaining DPOA for . Zyprexa 5mg QHS initiated on 05/24/17 in ED due to increased behaviors secondary to dementia. Dose decreased to 2.5mg QHS due to increased prolonged sedation. Given urinary retention and behavioral changes, will hold for time being. Dr. Jackson consulted. Severe hypothyroidism-discussed with endocrinology. Start Synthroid 25 g by mouth daily. Can increase by 25 g every couple of months as long as the patient is tolerating it. Free T3 and T4 pending. This will need to be followed in the outpatient setting with primary care. Previously treated with levothyroxine 25 g daily-patient discontinued at some point in the past. B-12 and folate levels pending regarding macrocytic anemia. Speech therapy has been consulted for dysphagia evaluation - awaiting evaluation. Encourage participation in therapies. Patient has reported AMY history but does not tolerate home CPAP. Overnight oximetry reveals he was stable on room air all night. Recheck labs in AM to monitor blood counts, electrolytes and renal function. Will recheck CPK to monitor for down trending. 05/28/17: Scr trending down (1.7) - baseline 1.6. Continue to monitor closely. Renal sonogram revealed echogenic renal parenchyma suggesting medical renal disease and right sided nonobstructing urinary calculi with small simple appearing renal cortical cyst. Bumex 1mg IV x 1 dose given 05/27/17 with significant improvement in urinary output. Continue to maintain Kline catheter and monitor urinary output closely. CPK trending down. Oral intake improving. Will decrease 1/2NS to 75cc/hr for continued gentle hydration. Monitor closely for signs of fluid overload. Blood pressure significantly elevated this AM (209/101). Will restart home amiodarone 200mg daily as well as carvedilol 12.5mg WB. Continue to monitor blood pressure closely. Continue to monitor closely on telemetry. Blood sugars stable. Continue Levemir 6.5 units QHS and monitor blood sugars closely. Sliding scale insulin - low - available as needed. Strength improved today and patient more alert. CT head showed mild cortical atrophy and ventricular and subcortical white matter disease without evidence of acute cortical infarct, intracranial hemorrhage or mass. Electrolytes stable. Continue to monitor closely. Dr. Jackson (psychiatric) consulted - awaiting evaluation. B12 stable at 675. Folate low-normal at 12.3. Will start daily multivitamin with folate. MMSE 7/30 05/29/17: Continue medical care plan. SCr at baseline (1.5). Will continue to monitor closely. reports history of BPH with chronic urinary frequency. Will initiate Flomax QHS for probable BPH in conjunction with bladder retraining and goal of discontinuation of Kline catheter over the next 24-48 hours. Oral intake stable. Will discontinue IV fluids. Monitor electrolytes and renal function closely. Blood pressure improved with restarting of amiodarone 200mg daily as well as carvedilol 12.5mg WB. Continue to monitor closely. Due to low blood sugars in AM, Levemir was decreased from 6.5 to 5 units QHS on 05/28/17. Blood sugar this AM was 127. Continue to monitor closely. Dr. Jackson (psychiatric) evaluated patient on 05/28/17 and determined he was unable to make his decisions. Patient elected for to be his DPOA. SCDs to bilateral lower extremity for DVT prophylaxis. Encourage participation in therapies. 05/30/17 Doing well overall; no problems described overnight by staff and patient not reporting active hallucinations today. Renal function has normalized; Kline catheter discontinued this morning and patient has been able to void at least 200 mL since that time. Monitoring bladder scans to exclude development of urinary retention. Continue Flomax to minimize urinary retention. Blood sugars stable after Levemir decreased to 5 units at bedtime, blood pressure slightly lower today while standing-continue to monitor. Manuel (psychiatric) evaluated patient on 05/28/17 and determined he was unable to make his decisions. interested in [facility] at discharge; options being evaluated. MMSE 02/15 today. 05/31/17 Medically stable; no problems described overnight by staff and patient not reporting active hallucinations today. Kline catheter discontinued yesterday, bladder scans demonstrate low residuals- consistently under 200 mL and seemed to be decreasing over time. Continue Flomax. Blood sugars stable after Levemir decreased to 5 units at bedtime. Mild asymptomatic orthostatic hypotension. Patient's delirium has cleared, underlying dementia present. Discussed with Dr. Obregon who will reassess determine if competent to sign DPOA. Continue thyroid replacement. Bowel regimen initiated. Anticipate discharge to [facility] on Friday if insurance authorization obtained. Continue PT/OT. Discontinue telemetry-strips reviewed this morning, consistently sinus rhythm. 06/01/17 Psych- Pt was slightly confused today. Not oriented to time. At this time the pt does not appear to have capacity to make his own decisions. I do believe his confusion will continue to improve as the delirium improves and we can reassess capacity at that time. 06/01/17 Patient is very tired, fatigued. Low-grade fever present after emesis overnight. Very low Phos noted. Oral phos was started today- will continue. Will also add IV KPhos due to weakness and fatigue with altered mental status. Mag is ok. Continue replacement of thyroid. Hyponatremia and orthostatics are improved. Continue Flomax for urinary retention. Multiple BM's overnoc. Will change Senna to PRN use. Psychiatry does not feel patient is able to determine DPOA currently. Chest x-ray today due to fever. BG is controlled. Repeat labs in am for stability of anemia, electrolytes. 06/02/17 Very orthostatic this am with blood pressure supine 110/65, sitting 92/58, standing 84/49 (and this was improved compared to earlier vitals). Decrease Coreg from 12.5 mg BID to 6.25 mg BID. Continue IVF. Hgb decreased to 8.7. With orthostasis will check stool for occult blood. T 100.5 yesterday afternoon (1600). CXR from yesterday was reviewed - looks like left-sided effusion. Radiologic report is pending. WBC normal at 8.4. Start nasal saline for congestion & check viral respiratory panel. Phos corrected to 3.0 - continue oral replacement. ANA resolved. 06/03/17 Orthostasis continues and he c/o lightheadedness with standing. Supine BP was 111/71 and HR 92 and standing 83/53 and HR 103 (though HR might be a bit higher b/c his Coreg dose was decreased to 6.25 mg yesterday). Continue IVF. Hgb has decreased further, now at 8.0. Stool for occult blood was positive. ASA placed on hold. Poor oral intake. I've consulted Dr. Clarke to evaluate for possible endoscopy. Continue Prilosec. Folate was normal a 12.3 and vitamin b12 was also normal at 675. With decreasing hgb, will check iron studies. Psych recommends decreasing Cymbalta to 60mg daily for time being as can interfere with platelet function and doses above 60mg/day primarily target pain rather than depression. Afebrile so far today. WBC normal at 8.4. Respiratory viral panel was negative. 06/04/17 EGD - gastritis. Protonix started BID with Carafate ac meals and q hs. 06/05/17 Orthostatic hypotension -Still dropping and symptomatic. Will stop Coreg and start Lopressor, JALEEL hose. Start Florinef 0.1mg daily 06/06/17 Continued anemia with Hgb down to 6.5 this morning Will transfuse 1 unit of PRBCs today. Exact etiology of anemia is unclear, possible GI tract given stool for occult was +. Upper Scope did not revel acute pathology of active GI bleeding. ASA remains on hold. Continue PPD and add Carafate for GI protection Orthostasis is better however BP is overall low this morning <100 systolic. Will start ProAmatine and stop Florinef. Increase Synthroid to 0.05mg daily. Replace PO potassium 40 meq. 06/07/17 Continue Protonix and Carafate for gastritis - hemoglobin 8.0 this am, improved from 6.5 yesterday. Will start Avodart to help urinary flow, holding Flomax. Will give oral KPhos this evening. 06/08/17 Replace phosphorus - give IV dose today. Continued to follow routine labs. Hgb stable at 8.4. He has had several low sugars. Will decrease sliding-scale insulin so that he does not receive any insulin unless sugars greater than 200. Monitor blood pressures for orthostasis
[2017-06-08] MEDS ORDERED: POTASSIUM PHOSPHATE IV SCH (13:00)
[2017-06-08] MEDS ORDERED: NS IV SCH (13:00)
[2017-06-08] MEDS: MAGNESIUM OXIDE 400 MG TABLET PO SCH (17:23)
[2017-06-08] MEDS: DUTASTERIDE 0.5 MG CAPSULE PO SCH (21:01)
[2017-06-08] MEDS: INSULIN DETEMIR 100unit/ml INJECTION SQ SCH (21:01)
[2017-06-09] MEDS: PANTOPRAZOLE 40 MG TABLET PO SCH ×2 (06:07→17:35)
[2017-06-09] MEDS: SUCRALFATE 1 GM TABLET PO SCH ×4 (06:07→22:55)
[2017-06-09] MEDS: LEVOTHYROXINE 50 MCG TABLET PO SCH (06:07)
[2017-06-09] MEDS: MIDODRINE 2.5 MG TABLET PO SCH ×3 (06:07→14:10)
[2017-06-09] MEDS: VIT B COMP PO SCH (08:49)
[2017-06-09] MEDS: POLYETHYL GLYCOL 3350 17gm PACKET PO SCH (08:49)
[2017-06-09] MEDS: FOLIC ACID PO SCH (08:49)
[2017-06-09] MEDS: DULOXETINE 60 MG CAPSULE PO SCH (08:49)
[2017-06-09] MEDS: AMIODARONE 200 MG TABLET PO SCH (08:49)
[2017-06-09] MEDS: [UNRECOGNIZED DRUG - OTHER] PO SCH (08:49)
[2017-06-09] MEDS: FERROUS GLUCONATE 324 MG TABLET PO SCH (14:10)
--- NOTE | 2017-06-09 15:22 | Progress Note ---
- Date 06/09/17 Subjective: Andriy is seen today in follow up while sitting up in the chair watching TV. He is alert and states that he "ready to go home". He denies having any pain or feeling short of breath on examination. Appetite has been good. Bowels are moving regularly. Objective Vital signs: Temperature 97.5 F 06/09/17 07:09 Pulse Rate 97 06/09/17 08:00 Respiratory Rate 16 06/09/17 07:09 Blood Pressure 109/67 06/09/17 07:14 Pulse Oximetry 100 06/09/17 07:09 Rhythm: Normal Sinus Rhythm Height/Weight/BMI: Weight 90.1 kg - Constitutional Present: well nourished, well developed - Routine HEENT Exam Eye: Present: EOMI ENT: Present: mucous membranes moist, dentition normal - Routine Respiratory Exam Present: CTA bilaterally. Absent: wheezes - Routine Cardiovascular Exam Present: RRR, S1, S2. Absent: murmur - Routine Abdominal Exam Present: soft, normoactive bowel sounds, non distended. Absent: tenderness - Routine Extremities Exam Present: normal capillary refill - Routine Skin Exam Present: dry, warm - Routine Neurological Exam Present: alert, CN II-XII intact, moving all extremities - Routine Lymphatic Exam Lymphatic: Absent: adenopathy - Routine Psychiatric Exam Present: cooperative Results - Labs CBC & Chem 7: 06/09/17 04:40 06/09/17 04:40 Microbiology Results: Microbiology 06/04/17 07:59 Gastric Biopsy Helicobacter pylori Rapid Urease - Final Assessment and Plan Assessment and Plan: Impression Acute kidney injury (POA) - resolved. Acute urinary retention Dehydration (POA) - resolved Hypernatremia (POA) Orthostatic hypotension Hypophosphatemia (not POA) Acute on chronic macrocytic anemia - transfused 1 unit pRBC 06/06 Mild gastritis on EGD GERD Hypothyroidism - Synthroid started this hospitalization Type II DM - insulin requiring Coronary artery disease Paroxysmal atrial fibrillation Hypertension Hyperlipidemia Stage III CKD Anxiety, depression History of suicide attempt Plan Hgb remains stable. Continues on Iron Blood sugars have been well controlled Mildly orthostatic this morning. Awaiting PT and OT evaluations today, as this will help with NH placement Case discussed with CM and AttendingGreen DVT Prophylaxis: SCD's Resuscitation Status: Do Not Resuscitate - Time spent with patient Time with patient PN: 25 minutes - Physician Narrative Physician: Miguel Gloria MD Narrative: Date: 06/09/17 Time: 1720 Have independently interviewed and examined pt. Chart reviewed. Case discussed with CM and my [employer]. Care plan developed with my supervision; agree with above. Doing well today. Has been up walking. Not reporting feeling very dizzy or unsteady with positional changed. Still seeing orthostatic drop on vitals. Breathing well. No ab pain or nausea. Lungs: decreased, no distress CV: regular AB: soft nt EXT: trace edema, SCD in place Plan: CM working on discharge disposition. Will continue with supportive care. Hospital Course Summary Disclaimer: The visit summary below is not to be considered part of the above Progress Note. Hospital Course: Impression Acute kidney injury-creatinine 2.4 (baseline 1.6) Dehydration Acute urinary retention Hypernatremia-present on admission, 148 Orthostatic hypotension Hypothyroidism DM Hypertension Hyperlipidemia CKD Coronary artery disease Anxiety, depression History of anemia. History of suicide attempt Plan-05/26/17 Admit outpatient observation under the care of Dr. Patel for dehydration and acute kidney injury with urinary retention. He was given 1 liter of normal saline while in the emergency room. Will switch to half-normal saline at 100 ML per hour for gentle hydration Will monitor Accu-Cheks and continue on Levemir 6.5 units at HS Kline catheter was placed. Given urinary retention over 300 ML. Will monitor urinary output. Given orthostatic hypotension, Will place home amiodarone and Coreg on hold. Will likely need to resume this once patient is better hydrated. Monitor blood pressures carefully and obtain orthostatics twice a day Follow routine electrolytes and renal function given acute kidney injury with hypernatremia Given findings of hypothyroidism. Will start patient on levothyroxine 25 mcg daily. Obtain Free T3 and T4. This will need to be followed in the outpatient setting with primary care SCDs to bilateral lower extremity for DVT prophylaxis Code status - DNR as per . She would like to speak to someone regarding DPOA paperwork. Will discuss further orders and plan of care with attending, Dr. Patel At time of discharge medical care will return to primary care provider, Dr Whyte 05/27/17: Scr trending down (1.9) - baseline 1.6. Continue to monitor closely. Renal sonogram results pending. CPK elevated (CPK 319). Urine creatine 189.5 and urine sodium elevated at 92. Continue 1/2NS at 100cc/hr for hydration. Monitor closely for signs of fluid overload. A1c 6.1. Continue Levemir 6.5 units QHS and monitor blood sugars closely. Sliding scale insulin - low - available as needed. Monitor urinary output closely - Kline catheter in place. Left facial droop with tongue deviation and left sided weakness noted on exam. Unknown if new findings. CT head pending. Orthostatic hypotension improved. Will continue to hold home amiodarone and coreg given concern for possible CVA and desire for passive hypertension until known as well as elevated renal function. Anticipate resuming home amiodarone and coreg once renal function improved and CT head results known incase need for passive hypertension. Monitor closely on telemetry. Continue to monitor blood pressures carefully and obtain orthostatics twice a day. Hypernatremia resolved. Continue to monitor electrolytes closely. SCDs to bilateral lower extremity for DVT prophylaxis. Case management to work with patient and family on obtaining DPOA for . Zyprexa 5mg QHS initiated on 05/24/17 in ED due to increased behaviors secondary to dementia. Dose decreased to 2.5mg QHS due to increased prolonged sedation. Given urinary retention and behavioral changes, will hold for time being. Dr. Jackson consulted. Severe hypothyroidism-discussed with endocrinology. Start Synthroid 25 g by mouth daily. Can increase by 25 g every couple of months as long as the patient is tolerating it. Free T3 and T4 pending. This will need to be followed in the outpatient setting with primary care. Previously treated with levothyroxine 25 g daily-patient discontinued at some point in the past. B-12 and folate levels pending regarding macrocytic anemia. Speech therapy has been consulted for dysphagia evaluation - awaiting evaluation. Encourage participation in therapies. Patient has reported AMY history but does not tolerate home CPAP. Overnight oximetry reveals he was stable on room air all night. Recheck labs in AM to monitor blood counts, electrolytes and renal function. Will recheck CPK to monitor for down trending. 05/28/17: Scr trending down (1.7) - baseline 1.6. Continue to monitor closely. Renal sonogram revealed echogenic renal parenchyma suggesting medical renal disease and right sided nonobstructing urinary calculi with small simple appearing renal cortical cyst. Bumex 1mg IV x 1 dose given 4/10/18 with significant improvement in urinary output. Continue to maintain Kline catheter and monitor urinary output closely. CPK trending down. Oral intake improving. Will decrease 1/2NS to 75cc/hr for continued gentle hydration. Monitor closely for signs of fluid overload. Blood pressure significantly elevated this AM (209/101). Will restart home amiodarone 200mg daily as well as carvedilol 12.5mg WB. Continue to monitor blood pressure closely. Continue to monitor closely on telemetry. Blood sugars stable. Continue Levemir 6.5 units QHS and monitor blood sugars closely. Sliding scale insulin - low - available as needed. Strength improved today and patient more alert. CT head showed mild cortical atrophy and ventricular and subcortical white matter disease without evidence of acute cortical infarct, intracranial hemorrhage or mass. Electrolytes stable. Continue to monitor closely. Dr. Jackson (psychiatric) consulted - awaiting evaluation. B12 stable at 675. Folate low-normal at 12.3. Will start daily multivitamin with folate. MMSE 09/1505/29/17: Continue medical care plan. SCr at baseline (1.5). Will continue to monitor closely. reports history of BPH with chronic urinary frequency. Will initiate Flomax QHS for probable BPH in conjunction with bladder retraining and goal of discontinuation of Kline catheter over the next 24-48 hours. Oral intake stable. Will discontinue IV fluids. Monitor electrolytes and renal function closely. Blood pressure improved with restarting of amiodarone 200mg daily as well as carvedilol 12.5mg WB. Continue to monitor closely. Due to low blood sugars in AM, Levemir was decreased from 6.5 to 5 units QHS on 05/28/17. Blood sugar this AM was 127. Continue to monitor closely. Dr. Jackson (psychiatric) evaluated patient on 05/28/17 and determined he was unable to make his decisions. Patient elected for to be his DPOA. SCDs to bilateral lower extremity for DVT prophylaxis. Encourage participation in therapies. 05/30/17 Doing well overall; no problems described overnight by staff and patient not reporting active hallucinations today. Renal function has normalized; Kline catheter discontinued this morning and patient has been able to void at least 200 mL since that time. Monitoring bladder scans to exclude development of urinary retention. Continue Flomax to minimize urinary retention. Blood sugars stable after Levemir decreased to 5 units at bedtime, blood pressure slightly lower today while standing-continue to monitor. Manuel (psychiatric) evaluated patient on 05/28/17 and determined he was unable to make his decisions. interested in intermediate at discharge; options being evaluated. MMSE 02/15 today. 05/31/17 Medically stable; no problems described overnight by staff and patient not reporting active hallucinations today. Kline catheter discontinued yesterday, bladder scans demonstrate low residuals- consistently under 200 mL and seemed to be decreasing over time. Continue Flomax. Blood sugars stable after Levemir decreased to 5 units at bedtime. Mild asymptomatic orthostatic hypotension. Patient's delirium has cleared, underlying dementia present. Discussed with Dr. Obregon who will reassess determine if competent to sign DPOA. Continue thyroid replacement. Bowel regimen initiated. Anticipate discharge to intermediate on Friday if insurance authorization obtained. Continue PT/OT. Discontinue telemetry-strips reviewed this morning, consistently sinus rhythm. 06/01/17 Psych- Pt was slightly confused today. Not oriented to time. At this time the pt does not appear to have capacity to make his own decisions. I do believe his confusion will continue to improve as the delirium improves and we can reassess capacity at that time. 06/01/17 Patient is very tired, fatigued. Low-grade fever present after emesis overnight. Very low Phos noted. Oral phos was started today- will continue. Will also add IV KPhos due to weakness and fatigue with altered mental status. Mag is ok. Continue replacement of thyroid. Hyponatremia and orthostatics are improved. Continue Flomax for urinary retention. Multiple BM's overnoc. Will change Senna to PRN use. Psychiatry does not feel patient is able to determine DPOA currently. Chest x-ray today due to fever. BG is controlled. Repeat labs in am for stability of anemia, electrolytes. 06/02/17 Very orthostatic this am with blood pressure supine 110/65, sitting 92/58, standing 84/49 (and this was improved compared to earlier vitals). Decrease Coreg from 12.5 mg BID to 6.25 mg BID. Continue IVF. Hgb decreased to 8.7. With orthostasis will check stool for occult blood. T 100.5 yesterday afternoon (1600). CXR from yesterday was reviewed - looks like left-sided effusion. Radiologic report is pending. WBC normal at 8.4. Start nasal saline for congestion & check viral respiratory panel. Phos corrected to 3.0 - continue oral replacement. ANA resolved. 06/03/17 Orthostasis continues and he c/o lightheadedness with standing. Supine BP was 111/71 and HR 92 and standing 83/53 and HR 103 (though HR might be a bit higher b/c his Coreg dose was decreased to 6.25 mg yesterday). Continue IVF. Hgb has decreased further, now at 8.0. Stool for occult blood was positive. ASA placed on hold. Poor oral intake. I've consulted Dr. Clarke to evaluate for possible endoscopy. Continue Prilosec. Folate was normal a 12.3 and vitamin b12 was also normal at 675. With decreasing hgb, will check iron studies. Psych recommends decreasing Cymbalta to 60mg daily for time being as can interfere with platelet function and doses above 60mg/day primarily target pain rather than depression. Afebrile so far today. WBC normal at 8.4. Respiratory viral panel was negative. 06/04/17 EGD - gastritis. Protonix started BID with Carafate ac meals and q hs. 06/05/17 Orthostatic hypotension -Still dropping and symptomatic. Will stop Coreg and start Lopressor, JALEEL anderson. Start Florinef 0.1mg daily 06/06/17 Continued anemia with Hgb down to 6.5 this morning Will transfuse 1 unit of PRBCs today. Exact etiology of anemia is unclear, possible GI tract given stool for occult was +. Upper Scope did not revel acute pathology of active GI bleeding. ASA remains on hold. Continue PPD and add Carafate for GI protection Orthostasis is better however BP is overall low this morning <100 systolic. Will start ProAmatine and stop Florinef. Increase Synthroid to 0.05mg daily. Replace PO potassium 40 meq. 06/07/17 Continue Protonix and Carafate for gastritis - hemoglobin 8.0 this am, improved from 6.5 yesterday. Will start Avodart to help urinary flow, holding Flomax. Will give oral KPhos this evening. 06/08/17 Replace phosphorus - give IV dose today. Continued to follow routine labs. Hgb stable at 8.4. He has had several low sugars. Will decrease sliding-scale insulin so that he does not receive any insulin unless sugars greater than 200. Monitor blood pressures for orthostasis 06/09/17 Hgb remains stable. Continues on Iron. Blood sugars have been well controlled. Mildly orthostatic this morning. Awaiting PT and OT evaluations today, as this will help with NH placement
[2017-06-09] MEDS: MAGNESIUM OXIDE 400 MG TABLET PO SCH (17:35)
[2017-06-09] MEDS: DUTASTERIDE 0.5 MG CAPSULE PO SCH (22:55)
[2017-06-09] MEDS: INSULIN DETEMIR 100unit/ml INJECTION SQ SCH (22:55)
[2017-06-10 01:27] VITALS: RESP 16
[2017-06-10] MEDS: LEVOTHYROXINE 50 MCG TABLET PO SCH (06:22)
[2017-06-10] MEDS: PANTOPRAZOLE 40 MG TABLET PO SCH ×2 (06:23→16:59)
[2017-06-10 07:17] VITALS: TEMP 97.1; O2SAT 100
[2017-06-10 07:23] VITALS: BP 108/74
[2017-06-10] MEDS: MIDODRINE 2.5 MG TABLET PO SCH ×3 (07:42→16:57)
[2017-06-10] MEDS: SUCRALFATE 1 GM TABLET PO SCH ×3 (07:42→16:57)
[2017-06-10 08:18] VITALS: PULSE 79
[2017-06-10] MEDS: POLYETHYL GLYCOL 3350 17gm PACKET PO SCH (09:52)
[2017-06-10] MEDS: SALINE FLUSH 10ml SYRINGE IVF PRN (09:52)
[2017-06-10] MEDS: AMIODARONE 200 MG TABLET PO SCH (09:53)
[2017-06-10] MEDS: [UNRECOGNIZED DRUG - OTHER] PO SCH (09:53)
[2017-06-10] MEDS: DULOXETINE 60 MG CAPSULE PO SCH (09:53)
[2017-06-10] MEDS: VIT B COMP PO SCH (09:53)
[2017-06-10] MEDS: FOLIC ACID PO SCH (09:53)
--- NOTE | 2017-06-10 12:18 | Progress Note ---
- Date 06/10/17 Subjective: F/U: Orthostatic hypotension, acute on chronic anemia, dehydration with acute kidney injury. Doing well today. Strength increasing-able to walk further and better in halls. In fact, improved so much that insurance is declining skilled care. Arrangements for home health made. Breathing well. No chest pain. Bowels stable. Urinary status stable. Does still note unsteadiness with positional changes; attempts to get up slowly for safety. Does feel ready to go home. Objective Vital signs: Temperature 97.1 F 06/10/17 07:14 Pulse Rate 79 06/10/17 08:00 Respiratory Rate 16 06/10/17 07:14 Blood Pressure 108/74 06/10/17 07:18 Pulse Oximetry 100 06/10/17 07:14 Rhythm: Normal Sinus Rhythm Height/Weight/BMI: Weight 89.1 kg - Constitutional Present: well nourished, well developed, average body habitus, cooperative - Routine HEENT Exam Head: Present: normocephalic, atraumatic Eye: Present: EOMI, PERRL ENT: Present: mucous membranes moist - Routine Respiratory Exam Present: decreased breath sounds. Absent: rales, respiratory distress, rhonchi , wheezes, crackles - Routine Cardiovascular Exam Present: RRR, no murmur - Routine Abdominal Exam Present: soft, normoactive bowel sounds. Absent: non distended, non tender - Routine Extremities Exam Present: no edema, pulses intact. Absent: cyanosis, clubbing Comments: SCD in place - Routine Musculoskeletal Exam Musculoskeletal: Present: no clubbing or cyanosis - Routine Skin Exam Present: dry, warm - Routine Neurological Exam Present: alert, CN II-XII intact, moving all extremities, vision grossly intact , hearing grossly intact, normal speech. Absent: motor deficit, altered mental status - Routine Psychiatric Exam Present: normal affect, cooperative. Absent: anxious, agitated Results - Labs CBC & Chem 7: 06/10/17 04:45 06/10/17 04:45 Microbiology Results: Microbiology 06/04/17 07:59 Gastric Biopsy Helicobacter pylori Rapid Urease - Final Assessment and Plan Assessment and Plan: Impression Acute kidney injury (POA) - resolved. Acute urinary retention Dehydration (POA) - resolved Hypernatremia (POA) Orthostatic hypotension Hypophosphatemia (not POA) Acute on chronic macrocytic anemia - transfused 1 unit pRBC 06/06 Mild gastritis on EGD GERD Hypothyroidism - Synthroid started this hospitalization Type II DM - insulin requiring Coronary artery disease Paroxysmal atrial fibrillation Hypertension Hyperlipidemia Stage III CKD Anxiety, depression Major neurocognitive disorder Delirium (improving) Moderate, vascular etiology - suspected History of suicide attempt Plan Hemoglobin stable at 8.2. Creatinine 1.2. Blood sugars stable. Strength improving. Will discharge to home for continuation of care. Home health set up with [facility] - patient's functional status improve to point he does not qualify for skilled care. Continue with medication changes initiated during hospitalization: Levemir decreased to 5 units at night. ProAmatine started at 2.5mg at 0700, 1100, and 1500 due to orthostatic hypotension. Coreg changed to metoprolol 25mg with breakfast to minimize orthostasis. Pacerone decrease to 100mg daily. Avodart 0.5mg at night due to BPH/Urinary retention. Synthroid 0.05mg started due to hypothyroidism. Cymbalta decreased to 60mg. Zyprexa stopped. Omeprazole 40mg BIDWM Will need Carafate 1 gram ac meal and hs for 1 month. Miralax daily to help stools - may hold if stools loose. F/U with Dr Whyte in 1 week. Recommend rechecking CBC at that time secondary to anemia. Recommend rechecking BMP at that time secondary to recent ANA and Stage III CKD/Medication use. Will need TSH in about 6 week secondary to hypothyroidism and initiation of Synthroid. See orders for details. Case discussed with CM. Time spent with patient care and discharge greater than 30 minutes. DVT Prophylaxis: SCD's Resuscitation Status: Do Not Resuscitate - Physician Narrative Physician: Miguel Gloria MD Narrative: Date: 06/10/17 Time: 1214 Hospital Course Summary Disclaimer: The visit summary below is not to be considered part of the above Progress Note. Hospital Course: Impression Acute kidney injury-creatinine 2.4 (baseline 1.6) Dehydration Acute urinary retention Hypernatremia-present on admission, 148 Orthostatic hypotension Hypothyroidism DM Hypertension Hyperlipidemia CKD Coronary artery disease Anxiety, depression History of anemia. History of suicide attempt Plan-05/26/17 Admit outpatient observation under the care of Dr. Patel for dehydration and acute kidney injury with urinary retention. He was given 1 liter of normal saline while in the emergency room. Will switch to half-normal saline at 100 ML per hour for gentle hydration Will monitor Accu-Cheks and continue on Levemir 6.5 units at HS Kline catheter was placed. Given urinary retention over 300 ML. Will monitor urinary output. Given orthostatic hypotension, Will place home amiodarone and Coreg on hold. Will likely need to resume this once patient is better hydrated. Monitor blood pressures carefully and obtain orthostatics twice a day Follow routine electrolytes and renal function given acute kidney injury with hypernatremia Given findings of hypothyroidism. Will start patient on levothyroxine 25 mcg daily. Obtain Free T3 and T4. This will need to be followed in the outpatient setting with primary care SCDs to bilateral lower extremity for DVT prophylaxis Code status - DNR as per . She would like to speak to someone regarding DPOA paperwork. Will discuss further orders and plan of care with attending, Dr. Patel At time of discharge medical care will return to primary care provider, Dr Whyte 05/27/17: Scr trending down (1.9) - baseline 1.6. Continue to monitor closely. Renal sonogram results pending. CPK elevated (CPK 319). Urine creatine 189.5 and urine sodium elevated at 92. Continue 1/2NS at 100cc/hr for hydration. Monitor closely for signs of fluid overload. A1c 6.1. Continue Levemir 6.5 units QHS and monitor blood sugars closely. Sliding scale insulin - low - available as needed. Monitor urinary output closely - Kline catheter in place. Left facial droop with tongue deviation and left sided weakness noted on exam. Unknown if new findings. CT head pending. Orthostatic hypotension improved. Will continue to hold home amiodarone and coreg given concern for possible CVA and desire for passive hypertension until known as well as elevated renal function. Anticipate resuming home amiodarone and coreg once renal function improved and CT head results known incase need for passive hypertension. Monitor closely on telemetry. Continue to monitor blood pressures carefully and obtain orthostatics twice a day. Hypernatremia resolved. Continue to monitor electrolytes closely. SCDs to bilateral lower extremity for DVT prophylaxis. Case management to work with patient and family on obtaining DPOA for . Zyprexa 5mg QHS initiated on 05/24/17 in ED due to increased behaviors secondary to dementia. Dose decreased to 2.5mg QHS due to increased prolonged sedation. Given urinary retention and behavioral changes, will hold for time being. Dr. Jackson consulted. Severe hypothyroidism-discussed with endocrinology. Start Synthroid 25 g by mouth daily. Can increase by 25 g every couple of months as long as the patient is tolerating it. Free T3 and T4 pending. This will need to be followed in the outpatient setting with primary care. Previously treated with levothyroxine 25 g daily-patient discontinued at some point in the past. B-12 and folate levels pending regarding macrocytic anemia. Speech therapy has been consulted for dysphagia evaluation - awaiting evaluation. Encourage participation in therapies. Patient has reported AMY history but does not tolerate home CPAP. Overnight oximetry reveals he was stable on room air all night. Recheck labs in AM to monitor blood counts, electrolytes and renal function. Will recheck CPK to monitor for down trending. 05/28/17: Scr trending down (1.7) - baseline 1.6. Continue to monitor closely. Renal sonogram revealed echogenic renal parenchyma suggesting medical renal disease and right sided nonobstructing urinary calculi with small simple appearing renal cortical cyst. Bumex 1mg IV x 1 dose given 05/27/17 with significant improvement in urinary output. Continue to maintain Kline catheter and monitor urinary output closely. CPK trending down. Oral intake improving. Will decrease 1/2NS to 75cc/hr for continued gentle hydration. Monitor closely for signs of fluid overload. Blood pressure significantly elevated this AM (209/101). Will restart home amiodarone 200mg daily as well as carvedilol 12.5mg WB. Continue to monitor blood pressure closely. Continue to monitor closely on telemetry. Blood sugars stable. Continue Levemir 6.5 units QHS and monitor blood sugars closely. Sliding scale insulin - low - available as needed. Strength improved today and patient more alert. CT head showed mild cortical atrophy and ventricular and subcortical white matter disease without evidence of acute cortical infarct, intracranial hemorrhage or mass. Electrolytes stable. Continue to monitor closely. Dr. Jackson (psychiatric) consulted - awaiting evaluation. B12 stable at 675. Folate low-normal at 12.3. Will start daily multivitamin with folate. MMSE 09/1505/29/17: Continue medical care plan. SCr at baseline (1.5). Will continue to monitor closely. reports history of BPH with chronic urinary frequency. Will initiate Flomax QHS for probable BPH in conjunction with bladder retraining and goal of discontinuation of Kline catheter over the next 24-48 hours. Oral intake stable. Will discontinue IV fluids. Monitor electrolytes and renal function closely. Blood pressure improved with restarting of amiodarone 200mg daily as well as carvedilol 12.5mg WB. Continue to monitor closely. Due to low blood sugars in AM, Levemir was decreased from 6.5 to 5 units QHS on 05/28/17. Blood sugar this AM was 127. Continue to monitor closely. Dr. Jackson (psychiatric) evaluated patient on 05/28/17 and determined he was unable to make his decisions. Patient elected for to be his DPOA. SCDs to bilateral lower extremity for DVT prophylaxis. Encourage participation in therapies. 05/30/17 Doing well overall; no problems described overnight by staff and patient not reporting active hallucinations today. Renal function has normalized; Kline catheter discontinued this morning and patient has been able to void at least 200 mL since that time. Monitoring bladder scans to exclude development of urinary retention. Continue Flomax to minimize urinary retention. Blood sugars stable after Levemir decreased to 5 units at bedtime, blood pressure slightly lower today while standing-continue to monitor. Manuel (psychiatric) evaluated patient on 05/28/17 and determined he was unable to make his decisions. interested in long-term at discharge; options being evaluated. MMSE 02/15 today. 05/31/17 Medically stable; no problems described overnight by staff and patient not reporting active hallucinations today. Kline catheter discontinued yesterday, bladder scans demonstrate low residuals- consistently under 200 mL and seemed to be decreasing over time. Continue Flomax. Blood sugars stable after Levemir decreased to 5 units at bedtime. Mild asymptomatic orthostatic hypotension. Patient's delirium has cleared, underlying dementia present. Discussed with Dr. Obregon who will reassess determine if competent to sign DPOA. Continue thyroid replacement. Bowel regimen initiated. Anticipate discharge to long-term on Friday if insurance authorization obtained. Continue PT/OT. Discontinue telemetry-strips reviewed this morning, consistently sinus rhythm. 06/01/17 Psych- Pt was slightly confused today. Not oriented to time. At this time the pt does not appear to have capacity to make his own decisions. I do believe his confusion will continue to improve as the delirium improves and we can reassess capacity at that time. 06/01/17 Patient is very tired, fatigued. Low-grade fever present after emesis overnight. Very low Phos noted. Oral phos was started today- will continue. Will also add IV KPhos due to weakness and fatigue with altered mental status. Mag is ok. Continue replacement of thyroid. Hyponatremia and orthostatics are improved. Continue Flomax for urinary retention. Multiple BM's overnoc. Will change Senna to PRN use. Psychiatry does not feel patient is able to determine DPOA currently. Chest x-ray today due to fever. BG is controlled. Repeat labs in am for stability of anemia, electrolytes. 06/02/17 Very orthostatic this am with blood pressure supine 110/65, sitting 92/58, standing 84/49 (and this was improved compared to earlier vitals). Decrease Coreg from 12.5 mg BID to 6.25 mg BID. Continue IVF. Hgb decreased to 8.7. With orthostasis will check stool for occult blood. T 100.5 yesterday afternoon (1600). CXR from yesterday was reviewed - looks like left-sided effusion. Radiologic report is pending. WBC normal at 8.4. Start nasal saline for congestion & check viral respiratory panel. Phos corrected to 3.0 - continue oral replacement. ANA resolved. 06/03/17 Orthostasis continues and he c/o lightheadedness with standing. Supine BP was 111/71 and HR 92 and standing 83/53 and HR 103 (though HR might be a bit higher b/c his Coreg dose was decreased to 6.25 mg yesterday). Continue IVF. Hgb has decreased further, now at 8.0. Stool for occult blood was positive. ASA placed on hold. Poor oral intake. I've consulted Dr. Clarke to evaluate for possible endoscopy. Continue Prilosec. Folate was normal a 12.3 and vitamin b12 was also normal at 675. With decreasing hgb, will check iron studies. Psych recommends decreasing Cymbalta to 60mg daily for time being as can interfere with platelet function and doses above 60mg/day primarily target pain rather than depression. Afebrile so far today. WBC normal at 8.4. Respiratory viral panel was negative. 06/04/17 EGD - gastritis. Protonix started BID with Carafate ac meals and q hs. 06/05/17 Orthostatic hypotension -Still dropping and symptomatic. Will stop Coreg and start Lopressor, JALEEL almeidae. Start Florinef 0.1mg daily 06/06/17 Continued anemia with Hgb down to 6.5 this morning Will transfuse 1 unit of PRBCs today. Exact etiology of anemia is unclear, possible GI tract given stool for occult was +. Upper Scope did not revel acute pathology of active GI bleeding. ASA remains on hold. Continue PPD and add Carafate for GI protection Orthostasis is better however BP is overall low this morning <100 systolic. Will start ProAmatine and stop Florinef. Increase Synthroid to 0.05mg daily. Replace PO potassium 40 meq. 06/07/17 Continue Protonix and Carafate for gastritis - hemoglobin 8.0 this am, improved from 6.5 yesterday. Will start Avodart to help urinary flow, holding Flomax. Will give oral KPhos this evening. 06/08/17 Replace phosphorus - give IV dose today. Continued to follow routine labs. Hgb stable at 8.4. He has had several low sugars. Will decrease sliding-scale insulin so that he does not receive any insulin unless sugars greater than 200. Monitor blood pressures for orthostasis 06/09/17 Hgb remains stable. Continues on Iron. Blood sugars have been well controlled. Mildly orthostatic this morning. Awaiting PT and OT evaluations today, as this will help with NH placement 06/10/17 Hemoglobin stable at 8.2. Creatinine 1.2. Blood sugars stable. Strength improving. Will discharge to home for continuation of care. Home health set up with [facility] - patient's functional status improve to point he does not qualify for skilled care. Continue with medication changes initiated during hospitalization: Levemir decreased to 5 units at night. ProAmatine started at 2.5mg at 0700, 1100, and 1500 due to orthostatic hypotension. Coreg changed to metoprolol 25mg with breakfast to minimize orthostasis. Pacerone decrease to 100mg daily. Avodart 0.5mg at night due to BPH/Urinary retention. Synthroid 0.05mg started due to hypothyroidism. Cymbalta decreased to 60mg. Zyprexa stopped. Omeprazole 40mg BIDWM. Will need Carafate 1 gram ac meal and hs for 1 month. Miralax daily to help stools - may hold if stools loose. F/U with Dr Whyte in 1 week. Recommend rechecking CBC at that time secondary to anemia. Recommend rechecking BMP at that time secondary to recent ANA and Stage III CKD/Medication use. Will need TSH in about 6 week secondary to hypothyroidism and initiation of Synthroid. See orders for details.
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
--- NOTE | 2017-06-11 14:37 | Right on Track Program ---
Right on Track Program Date of Discharge: 06/10/17 Home Medications: Home Medications Medication Instructions Recorded Confirmed Ferrous Gluconate 324 mg PO Q2D PRN #0 09/03/15 05/26/17 Omeprazole 40 mg PO BID #0 11/23/15 05/26/17 Aspirin [Ecotrin] 81 mg PO Q2D 05/11/17 05/26/17 Hydrocodone/APAP 7.5/325 [[place] 1 tab PO Q4H PRN 05/24/17 05/26/17 7.5/325] Ondansetron Tab [Zofran Po] 4 mg PO Q6HR PRN 05/24/17 05/26/17 Previous Rx's Medication Instructions Recorded Amiodarone [Pacerone] 100 mg PO DAILY tab 06/10/17 Duloxetine [Cymbalta] 60 mg PO DAILY cap 06/10/17 Dutasteride [Avodart] 0.5 mg PO HS #30 cap 06/10/17 Folic Acid/Vit B Comp + C 1 cap PO DAILY cap 06/10/17 [Nephrocaps] Insulin Detemir [Levemir Flextouch] 5 unit SQ HS #0 06/10/17 Levothyroxine Sodium [Synthroid] 50 mcg PO ACB #30 tab 06/10/17 Metoprolol Tartrate [Lopressor] 25 mg PO WB #30 tab 06/10/17 Midodrine [Proamatine] 2.5 mg PO 0700,1100,1500 #90 tab 06/10/17 PEG 3350 17gm PACKET [Miralax] 17 gm PO DAILY packet 06/10/17 Sodium Chloride [[place]] 1 spray EA NOSTRIL PRN PRN spray 06/10/17 Sucralfate [Carafate] 1 gm PO ACHS #120 tab 06/10/17 - Right on Track Program Phone call Date: 06/11/17 Right on Track Program: 24 Hour Follow-Up Discharge Summary Received: Yes Care Plan Received: Yes Follow Up: Follow Up Appointment Scheduled Education: Education Provided To Caregiver Referral: Primary Care Physician, Home Health Comments: I spoke with Andriy Patricio's . She said they've had a busy day with Home Health and PT. She states that Andriy's left foot is a little swollen, but otherwise he's doing well. Cognitively, he's back at baseline. We reviewed his new medications and I was able to clarify Midodrine indication for her. She is planning on going to picker and sorter load and unload his new medications this afternoon. She denied any questions on his discharge instructions. He has a follow up appointment scheduled with Dr. Whyte. Discussed With Patient and Caregiver: Yes Recommendations For Follow-up: 1. Continue Home Health 2. F/U with Dr. Whyte 3. Home visit planned on 06/17/17 Hrto-[id number]-[id number] visit Date: 06/17/17 Right on Track Program: 7-14 Day Kxrb-ia-Tzwy Discharge Summary Received: Yes Care Plan Received: Yes Follow Up: Follow up Tests Reviewed (Needs Rx for post-hospitalization labs), Follow Up Appointment Scheduled (already saw Dr. Whyte on 06/16) Education: Diagnosis Education Reviewed, Education Provided To Caregiver Referral: Social Work, Primary Care Physician, Home Health Comments: I visited Mr. Tavares at his house on 06/17/17. His son joined us during the visit. His , Sintia, was working. His house was clean and organized. He has 3 cats, 1 dog, and a parakeet who also live indoors. ROS: Still gets a little dizzy with standing (no falls or syncope), and he uses his walker all the time. No SOA or chest pain. He has a bad taste in his mouth that has been present for the last 2 months but he doesnt think hes lost any weight. Its affected how he tastes his food. He admits to difficulty swallowing, especially meat. He has not had any urinary retention. His BP has been variable, sometimes high, sometimes low. His blood sugar is also inconsistent. He has swelling and erythema to both forearms the edema is suspected to be from IVF in the hospital and he and his son report that he was sitting outside in the sun and believe the redness is a slight sunburn. His feet arent as swollen as they have been. His days are spent watching TV mostly. He hopes to start woodworking again when he has more strength and the swelling in his arms has improved. Meds: All of his medications are organized in a pill box. His discharge meds were reviewed. He has a poor understanding of medication and indications. His son reports that his mother was a nurse so she helps him. They have questions about the dose of Cymbalta (thought it was supposed to be 90 mg) and if they would like to know if he can have PRN Lasix. In addition, there were several insulin pens in the refrigerator, but neither Mr. Tavares nor his son could recall if he used to be on this prior to hospitalization. He is not taking ASA. PHQ2: negative. Support: Mr. Tavares is cared for by his and his son. He has two other children but they are not local and/or unable to provide support. His son reports that they worry about him being at home alone when his is at work and they are looking for a caregiver. This creates a stressful situation for the caregivers. Home Health is helping currently. I spoke with SALOME Diallo from [facility]. His BP is still dropping dramatically with change in position. She plans on providing education on orthostasis and diabetic diet in her upcoming visits. She also just received an order for a SW consult - perhaps the SW can help them investigate caregiver options. We also talked about dysphagia - she will request a Speech eval. from Dr. Whyte. Exam General: pleasant, alert, participation is limited secondary to dementia HEENT: PERRL, sclera clear, MMM, no thrush or pharyngeal erythema. HR: RRR w/ murmur Lungs: CTAB Abd: benign Ext: 1+ pitting edema to both arms with diffuse mild erythema to the sun- exposed areas of the forearms; 1+ edema to both feet, L>R Recommendations For Follow-up: PLAN 1. Diabetic education. Track BGM; may need to increase Levemir back to his home dose or consider adding mealtime insulin. In discussion with Sintia, he is eating more now than he was prior to hospitalization, and she feels comfortable increasing his Levemir back up to 16U HS. 2. Cymbalta dose clarified: doses >60 mg are usually indicated for pain rather than for depression, which is why he's only on 60 mg. 3. Since he's still orthostatic, would recommend holding off on routine Lasix at this time. Encouraged activity and mobilization to help facilitate venous return. However, it's a fine line with his hx of CHF (per spouse). Sintia plans on calling Dr. Lima to discuss BP and diuretic use. 4. Recommend SW consult to help determine caregiving options at home. 5. Recommend speech therapy eval to investigate dysphagia. 6. Continue HH. Plan was discussed with SALOME Diallo, and Sintia Tavares. - Problems (1) Acute kidney injury Code(s): N17.9 - Acute kidney failure, unspecified Status: Resolved
== END 2017-06-10 17:10 | disposition home health service (06) | DRG 683 ==
LOC: MED 12:20 → ED 12:20 → SUATTDRO 14:19 → MED 14:55 → SUATTDRO 05-27 17:51
PROVIDERS: ADMIT Internal Medicine; ATTEND Hospitalist
PROC: END.EGD (2017-06-04 08:00)